=== PATIENT | male | born 1930 | race Caucasian/White ===

== ENCOUNTER 2019-06-29 17:44 | Inpatient (IN) | payer MEDICARE, MEDICAID ==
[~2019-06-29] VITALS: Ht 170.2 cm; Wt 110.7 kg
--- NOTE | 2019-06-29 18:33 | PHYS DOC ---
Past History Past Medical History: Anxiety, Bipolar, CAD, CHF, Constipation, Depression, Diabetes, GERD, High Cholesterol, Hypertension, Hypothyroid, Other Additional Past Medical Histor: MRSA; gout; BPH; Past Surgical History: Other Additional Past Surgical Histo: eye surgery Smoking: Non-smoker Alcohol Use: None Drug Use: None Adult General Chief Complaint Chief Complaint: MEDICAL CLEARANCE HPI HPI Patient is a 88-year-old male presents for medical clearance prior to admission for potentially to [facility] for behavioral disturbances at the facility where he currently resides. No relief with previous interventions. Patient denies any complaints.[] Review of Systems Review of Systems Constitutional: Denies fever or chills [] Eyes: Denies change in visual acuity, redness, or eye pain [] HENT: Denies nasal congestion or sore throat [] Respiratory: Denies cough or shortness of breath [] Cardiovascular: No chest pain or palpitations[] GI: Denies abdominal pain, nausea, vomiting, bloody stools or diarrhea [] : Denies dysuria or hematuria [] Musculoskeletal: Denies back pain or joint pain [] Integument: Denies rash or skin lesions [] Neurologic: Denies headache, focal weakness or sensory changes [] Endocrine: Denies polyuria or polydipsia [] All other systems were reviewed and found to be within normal limits, except as documented in this note. Allergies Allergies Allergies Coded Allergies Type Severity Reaction Last Updated Verified No Known Drug Allergies 06/29/19 No Physical Exam Physical Exam Constitutional: Well developed, well nourished, no acute distress, non-toxic appearance. [] HENT: Normocephalic, atraumatic, bilateral external ears normal, oropharynx moist, no oral exudates, nose normal. [] Eyes: PERRLA, EOMI, conjunctiva normal, no discharge. [] Neck: Normal range of motion, no tenderness, supple, no stridor. [] Cardiovascular:Heart rate regular rhythm, no murmur [] Lungs & Thorax: Bilateral breath sounds clear to auscultation [] Abdomen: Bowel sounds normal, soft, no tenderness, no masses, no pulsatile masses. [] Skin: Warm, dry, no erythema, no rash. [] Back: No tenderness, no CVA tenderness. [] Extremities: No tenderness, no cyanosis, no clubbing, ROM intact, pretibial edema is present bilateral lower extremities, 1-2+, symmetric. [] Neurologic: Alert and oriented X 2, normal motor function, normal sensory function, no focal deficits noted. [] Psychologic: Affect normal, mood normal. [] Current Patient Data Vital Signs Vital Signs Date Time Temp Pulse Resp B/P (MAP) Pulse Ox O2 Delivery O2 Flow Rate FiO2 06/29/19 17:59 97.1 88 24 97 Room Air EKG EKG EKG shows an irregular rhythm consistent with atrial fibrillation, left axis, 79 bpm, QTC of 490 ms, no ST elevation. No old EKG available for comparison. Interpreted by me at 1906[] Radiology/Procedures Radiology/Procedures [] Course & Med Decision Making Course & Med Decision Making Pertinent Labs and Imaging studies reviewed. (See chart for details) ED course: Patient arrived, was placed in bed, and tolerated exam well. He had several episodes of calling out however these were controlled with verbal interventions. Laboratory testing returned. He was given initial dose of oral antibiotics. He was cleared for admission. He was admitted in improved condition. Medical decision makin-year-old male with behavioral issues in somebody with a history of bipolar disorder. His glucose is elevated but he is not in diabetic ketoacidosis. This may be also due to not having any of his medication. He looks like he is in atrial fibrillation but has a controlled ventricular response. He has no chest pain or palpitations. No hypoxia. He has a urinary tract infection which may also be contributing to all of this. This is being addressed with oral antibiotics. He is medically clear for further evaluation and treatment by [facility].[] Dragon Disclaimer Dragon Disclaimer This electronic medical record was generated, in whole or in part, using a voice recognition dictation system. Departure Departure: Impression: Primary Impression: Medical clearance for psychiatric admission Additional Impressions: Poorly controlled diabetes mellitus Atrial fibrillation Urinary tract infection Disposition: ADMITTED INPATIENT Admitting Physician: Other Condition: IMPROVED Referrals: ARLETH CAMACHO MD (PCP) Problem Qualifiers Additional Impressions: Atrial fibrillation Atrial fibrillation type: unspecified Qualified Codes: I48.91 - Unspecified atrial fibrillation Urinary tract infection Urinary tract infection type: site unspecified Hematuria presence: without hematuria Qualified Codes: N39.0 - Urinary tract infection, site not specified DEMETRIA JORGENSEN DO Jun 29, 2019 18:32
[2019-06-29 18:47] LABS: BASO # 0.1 x10^3/uL (0.0-0.2); BASO % 1 % (0-3); EOS # 0.2 x10^3/uL (0.0-0.7); EOS % 2 % (0-3); HEMATOCRIT 37.5 % (39.0-53.0); HEMOGLOBIN 12.2 g/dL (13.0-17.5); LYMPH # 1.9 x10^3/uL (1.0-4.8); LYMPH % 19 % (24-48); MEAN CORPUSCULAR HEMOGLOBIN 31 pg (25-35); MEAN CORPUSCULAR HGB CONC 33 g/dL (31-37); MEAN CORPUSCULAR VOLUME 95 fL (79-100); MONO # 0.7 x10^3/uL (0.0-1.1); MONO % 7 % (0-9); NEUT # 7.3 x10^3uL (1.8-7.7); NEUT % 72 % (31-73); PLATELET COUNT 235 x10^3/uL (140-400); RED BLOOD COUNT 3.95 x10^6/uL (4.30-5.70); RED CELL DISTRIBUTION WIDTH 14.7 % (11.5-14.5); WHITE BLOOD COUNT 10.2 x10^3/uL (4.0-11.0)
--- NOTE | 2019-06-29 18:55 | NUR ---
Patient has [facility]; Authorization #[id number] through 07/01/19, to be reviewed on 07/02/19.
[2019-06-29 19:00] LABS: ALBUMIN/GLOBULIN RATIO 0.7 (1.0-1.7); CALCIUM 8.3 mg/dL (8.5-10.1); CREATININE 1.2 mg/dL (0.7-1.3); GFR 57.4; MAGNESIUM 1.1 mg/dL (1.8-2.4); TOTAL BILIRUBIN 0.3 mg/dL (0.2-1.0); TOTAL PROTEIN 7.3 g/dL (6.4-8.2)
[2019-06-29 19:16] LABS: BILIRUBIN,URINE NEG (NEG); CLARITY,URINE CLOUDY; COLOR,URINE YELLOW; GLUCOSE,URINE NEG (NEG); NITRITE,URINE NEG (NEG); UROBILINOGEN,URINE 0.2 mg/dL (0.2 mg/dL)
[2019-06-29 19:17] LABS: BACTERIA,URINE FEW /HPF (0-FEW); SQUAMOUS EPITHELIAL CELL,UR OCC /LPF; WBC,URINE TNTC /HPF (0-4)
[2019-06-29] MEDS ORDERED: CEPHALEXIN 250 MG CAPSULE PO ONE (19:30)
[2019-06-29 20:41] VITALS: BP 137/65
[2019-06-29] MEDS ORDERED: METO5TAB4 PO (22:00)
[2019-06-29] MEDS ORDERED: METO10TA5 PO (22:00)
[2019-06-29] MEDS ORDERED: GLUC1KIT IM (22:00)
[2019-06-29] MEDS ORDERED: DEXT38GE2 PO (22:00)
[2019-06-29] MEDS ORDERED: LOPE-101 PO (22:00)
[2019-06-29] MEDS ORDERED: METHYL SALICYLATE/MENTHOL TOPICAL OINTMENT 57GM TUBE. TP PRN (22:00)
[2019-06-29] MEDS ORDERED: ASPI-252 PO (22:00)
[2019-06-29] MEDS ORDERED: PROP15DR40 EACHEYE (22:00)
[2019-06-29] MEDS ORDERED: LISI10TA2 PO (22:00)
[2019-06-29] MEDS ORDERED: ACET500T33 PO (22:00)
[2019-06-29] MEDS ORDERED: ACETAMINOPHEN 325 MG TABLET PO PRN (22:00)
[2019-06-29] MEDS ORDERED: BUSP15TA PO (22:00)
[2019-06-29] MEDS ORDERED: MAGNESIUM HYDROXIDE 2,400 MG/30 ML ORAL.SUSP. PO PRN ×2 (22:00→23:00)
[2019-06-29] MEDS ORDERED: METO25TA4 PO (22:00)
[2019-06-29] MEDS ORDERED: ALLO100T PO (22:00)
[2019-06-29] MEDS ORDERED: MULT-245 PO (22:00)
[2019-06-29] MEDS ORDERED: MAG-115 PO (22:00)
[2019-06-29] MEDS ORDERED: FLUT1DIS5 IH (22:00)
[2019-06-29] MEDS ORDERED: IPRA3AMP29 NEB (22:00)
[2019-06-29] MEDS ORDERED: FURO-68 PO (22:00)
[2019-06-29] MEDS ORDERED: INSU100I13 SQ ×2 (22:00)
[2019-06-29] MEDS ORDERED: QUET50TA5 PO (22:00)
[2019-06-29] MEDS ORDERED: MAG HYDROX/AL HYDROX/SIMETH 30 ML ORAL.SUSP PO PRN ×2 (22:00→22:45)
[2019-06-29] MEDS ORDERED: TRIA15CR50 TP (22:00)
[2019-06-29] MEDS ORDERED: NYST15PO9 TP (22:00)
[2019-06-29] MEDS ORDERED: TERA5CAP3 PO (22:00)
[2019-06-29] MEDS ORDERED: CHOL200078 PO (22:00)
[2019-06-29] MEDS ORDERED: MENT113G6 TP (22:00)
[2019-06-29] MEDS ORDERED: MEMA10TA PO (22:00)
[2019-06-29] MEDS ORDERED: QUET25TA5 PO (22:00)
[2019-06-29] MEDS ORDERED: LEVO150T PO (22:00)
[2019-06-29] MEDS ORDERED: POTA20TA4 PO (22:00)
[2019-06-29] MEDS ORDERED: MAGN2400 PO (22:00)
[2019-06-29] MEDS ORDERED: INSU100V SQ (22:00)
[2019-06-29] MEDS ORDERED: FINA5TAB4 PO (22:00)
[2019-06-29] MEDS ORDERED: PROP15DR40 OU (22:00)
[2019-06-29] MEDS ORDERED: SIMV20TA PO (22:00)
[2019-06-29] MEDS ORDERED: SERT100T PO (22:00)
--- NOTE | 2019-06-29 22:21 | NUR ---
Admission Note with Justification for Admission to [facility] Patient admitted to [facility] for protective oversight for emergency stabilization of acute psychiatric crisis. Pt admitted from: Hospital ER Mode of arrival: EMS Accompanied By: Secure Transport Precipitating behaviors that initiated intake and admission: Reported patient is combative, yelling at staff, threatening staff and threatening to "blow the building up." Patient is demanding, and in a "general bad mood." according to ER staff. Description of failure of out patient attempts at stabilization in previous setting list behavior and medication trials: Patient sees a current psychiatrist, patient needs medication stabilization Behaviors and assessment findings upon admission:Patient is slightly irritable depending on how you speak to him and what is being done. Patient is very hard of hearing so find that if you take your time and explain things to where he can hear, patient seems to be more understanding and in a better mood @ this time. Patient speaks loudly, and eccentrically. Cooperative and compliant. Patient does have PMHx of COPD/CHF. Keeping close eye on patient, medically. Patient appears to have a lot of fluid in abdomen, wheezes, crackles at bilateral bases. Patient stating 85-93 on 3L. Patient wants to go by the name "Grisel." Plan: Admit for protective oversight for adjustment and stabilization of medications, behaviors and mood. Intense treatment regimen including groups, medication adjustments, therapy, consistent regimen for ADL's, self care, and sleep hygiene. Daily monitoring by Inpatient staff, Psychiatry, and Medical Physician.
[2019-06-29] MEDS ORDERED: LOPERAMIDE 2 MG CAPSULE PO PRN (22:45)
[2019-06-29] MEDS ORDERED: DEXTROSE ORAL GEL 15 GM TUBE. PO PRN (22:45)
[2019-06-29] MEDS ORDERED: MENTHOL TP PRN (22:45)
[2019-06-29] MEDS ORDERED: ACETAMINOPHEN 500 MG TABLET PO PRN (22:45)
[2019-06-29] MEDS ORDERED: NYSTATIN TOPICAL POWDER 15GM BOTTLE. TP PRN (22:45)
[2019-06-29] MEDS ORDERED: GLUCAGON,HUMAN RECOMBINANT 1 MG KIT. IM PRN (23:00)
[2019-06-29] MEDS ORDERED: POLYVINYL ALCOHOL/POVIDONE/PF OPHTH SOLUTION DROPERETTE. OU PRN (23:00)
[2019-06-29] MEDS ORDERED: TRIAMCINOLONE ACETONIDE 0.1% TOPICAL CREAM 15GM TUBE. TP PRN (23:15)
[2019-06-29] MEDS ORDERED: DEXTROSE 50% 25 GM / 50ML DISP.SYRIN. IV PRN (23:30)
[2019-06-30] MEDS ORDERED: IPRATRPIUM/ALBUTEROL 0.5/2.5MG 3 ML NEBU. ONE (05:00)
[2019-06-30 05:15] VITALS: BP 136/79
--- NOTE | 2019-06-30 05:34 | NUR ---
Patient has been provided with Practical Counseling for tobacco cessation. It included a face to face interaction and the following was discussed: Recognizing danger situations, Developing coping skills,Basic cessation information. Will follow for discharge needs and discharge planning.
[2019-06-30] MEDS: IPRATRPIUM/ALBUTEROL 0.5/2.5MG 3 ML NEBU. NEB SCH ×4 (05:47→20:05)
[2019-06-30] MEDS ORDERED: NON FORMULARY ITEM (Insulin Lispro (Humalog) 0 UNIT) SQ SCH (07:30)
[2019-06-30] MEDS ORDERED: LEVOTHYROXINE 150 MCG TABLET PO SCH (07:30)
[2019-06-30] MEDS: INSULIN LISPRO 300 UNITS/3 ML VIAL. SQ SCH ×5 (07:30→17:50)
[2019-06-30] MEDS ORDERED: QUEtiapine 25 MG TABLET. PO SCH (09:00)
[2019-06-30] MEDS ORDERED: QUEtiapine 50 MG TABLET. PO SCH (09:00)
[2019-06-30] MEDS ORDERED: NON FORMULARY ITEM (Fluticasone/Salmeterol (Advair 500-50 Diskus) 1 PUFF) IH SCH (09:00)
[2019-06-30] MEDS ORDERED: INSULIN GLARGINE SYRINGE. SQ SCH (09:00)
[2019-06-30] MEDS: QUEtiapine 25 MG TABLET. PO SCH ×2 (10:00→13:44)
[2019-06-30] MEDS: busPIRone 15 MG TABLET. PO SCH ×4 (10:05→21:04)
[2019-06-30] MEDS: LISINOPRIL 10 MG TABLET PO SCH (10:05)
[2019-06-30] MEDS: FINASTERIDE 5 MG TABLET PO SCH (10:05)
[2019-06-30] MEDS: metOLazone 5 MG TABLET PO SCH (10:05)
[2019-06-30] MEDS: ASPIRIN ENTERIC COATED 325 MG TABLET.DR. PO SCH (10:06)
[2019-06-30] MEDS: CHOLECALCIFEROL (VITAMIN D3) 1,000 UNIT TABLET PO SCH (10:06)
[2019-06-30] MEDS: METOPROLOL TART IMMED RELEASE 25 MG TABLET PO SCH ×2 (10:06→21:05)
[2019-06-30] MEDS: SERTRALINE 100 MG TABLET. PO SCH (10:07)
[2019-06-30] MEDS: POTASSIUM CHLORIDE 20 MEQ TABLET.ER. PO SCH (10:07)
[2019-06-30] MEDS: MEMANTINE 10 MG TABLET. PO SCH ×2 (10:07→21:04)
[2019-06-30] MEDS: FUROSEMIDE 40 MG TABLET PO SCH (10:07)
[2019-06-30] MEDS: ALLOPURINOL 100 MG TABLET. PO SCH ×3 (10:07→21:04)
[2019-06-30] MEDS: MULTIVITAMIN with MINERAL TABLET. PO SCH (10:07)
[2019-06-30] MEDS: NICOTINE 14MG PATCH. TD SCH (10:08)
--- NOTE | 2019-06-30 10:11 | RAD ---
EXAM: CHEST ONE VIEW. HISTORY: Chronic obstructive pulmonary disease, congestive heart failure. COMPARISON: 02/20/2011. FINDINGS: A frontal view of the chest is obtained. Opacification in the left base is consistent with a pleural effusion along with atelectasis or infiltrate. A double density projecting over the left hilum is indeterminate but a mass is not excluded. There is no pneumothorax. The heart is at least mildly enlarged. There are atherosclerotic calcifications of the aorta. Left rotator cuff arthropathy and severe glenohumeral osteoarthritis are noted. There are chronic left rib fractures. IMPRESSION: 1. Findings concerning for a left hilar mass. CT of the chest with contrast is suggested if the diagnosis or stability is not already known. 2. Small moderate left pleural effusion. Left basilar atelectasis or pneumonia. 3. Cardiomegaly. Electronically signed by: Donell Frankel MD (06/30/2019 10:07 AM) [facility]
[2019-06-30] MEDS: BUDESONIDE 0.5 MG/2 ML NEBU NEB SCH ×2 (10:34→20:04)
--- NOTE | 2019-06-30 11:05 | RAD ---
EXAM: Abdomen sonogram. HISTORY: Distention. TECHNIQUE: Sonographic imaging of the abdomen was performed. COMPARISON: None. FINDINGS: The exam is limited due to body habitus. There is mild hepatomegaly. No focal hepatic lesion is seen. The gallbladder is unremarkable. The common bile duct is normal in caliber. The kidneys are normal in size. The spleen is normal in size. The pancreas, aorta and inferior vena cava are predominantly obscured. IMPRESSION: 1. Limited exam due to body habitus. The midline structures are predominantly obscured. 2. Mild hepatomegaly. Electronically signed by: Sandra Rai MD (06/30/2019 11:02 AM) [id number]
[2019-06-30] MEDS ORDERED: CONTRAST GIVEN MC PRN (13:00)
[2019-06-30] MEDS ORDERED: IOHEXOL 300 MG/ML 75 ML VIAL. IV ONE (13:15)
[2019-06-30] MEDS: MAGNESIUM OXIDE 400 MG TABLET PO SCH ×2 (13:44→21:04)
[2019-06-30 15:51] VITALS: BP 97/50
--- NOTE | 2019-06-30 15:54 | NUR ---
Nursing note: Pt in room this morning for meds and assessment. Pt was compliant with his meds crushed in applesauce and was cooperative with his assessment. Pt denies having any pain or any other complaints. He has been showing signs of agitation a few times today, yelling out, but has been easily redirected. He has been in the day room for most of the day. 20G IV placed in L AC for Dr. Sorenson's chest CT with contrast order. IV is currently saline locked. Will continue to monitor.
--- NOTE | 2019-06-30 16:33 | RAD ---
CT CHEST ABD PELVIS W/CONTRAST Indication: Left hilar mass, abdominal distention and shortness of breath Technique: Postcontrast CT imaging was performed of the chest, abdomen, pelvis, multiplanar reconstruction images submitted. One or more of the following individualized dose reduction techniques were utilized for this examination: 1. Automated exposure control 2. Adjustment of the mA and/or kV according to patient size 3. Use of iterative reconstruction technique. Comparison: Chest radiograph the same day Chest Findings: There is fairly prominent motion degradation. No significantly enlarged nodes are identified of the chest, right pretracheal node about 0.8 cm short axis dimension, largest nodes present. There is probable degree of esophageal wall thickening. There is minimal left lower lobe infiltrate/atelectasis. There is no pneumothorax or pleural or pericardial fluid. There is coronary calcification. Thoracic aortic caliber is within normal limits, scattered plaque. No focal left hilar mass is identified. There is mitral annular calcification. There is epicardial fat. Accurate evaluation for smaller lung nodules is limited due to degree of motion. Thoracic vertebral body stature is grossly maintained. IMPRESSION: 1. There is significant motion degradation. No left hilar mass is identified. There is minimal atelectasis/infiltrate left lower lobe closer to the lung base. 2. There is coronary calcification. 3. There is probable degree of esophageal wall thickening as could be seen with esophagitis in the appropriate clinical setting although also poorly evaluated due to motion. Abdomen pelvis FINDINGS: There is motion degradation. Both kidneys enhance without hydronephrosis. Gallbladder is present without obvious intraluminal abnormality by CT, not significantly dilated. There is no significant focal abnormality of the liver, spleen, pancreas allowing for motion degradation. Bowel is not considered significantly dilated, mild gas distention of the mid sigmoid colon. Accurate evaluation for more subtle inflammatory change is limited due to motion. There is possible appendicolith near origin of the appendix, no significant appendiceal dilatation or adjacent inflammatory change. There is circumferential prominence of the urinary bladder delgado. There is atherosclerotic calcification of the abdominal aorta and branches, likely degree of stenosis near celiac artery origin and of the proximal superior mesenteric artery as well as the renal arteries. Lumbar vertebral body stature is maintained. There is multilevel lumbar spondylosis and facet degenerative change. There is a fat-containing umbilical hernia without internal bowel, transverse dimension of hernia neck about 1.9 cm and transverse dimension of the hernia sac about 3.9 cm. IMPRESSION: 1. There is no evidence of bowel obstruction. There is no CT evidence of acute appendicitis although there may be appendicolith near the origin. 2. There is appearance of circumferential prominence of the urinary bladder delgado, could be due to incomplete distention although cystitis a possibility in the appropriate clinical setting. 3. There is small fat-containing hernia near the umbilicus, no internal bowel. 4. There is calcified plaque of the abdominal aorta and branches likely with degree of narrowing near the origins of the celiac and superior mesenteric arteries as well as renal arteries. Electronically signed by: Cosme Phipps MD (06/30/2019 4:30 PM) [id number]
[2019-06-30 20:26] LABS: THYROID STIM HORMONE (TSH) 7.406 uIU/mL (0.358-3.740)
--- NOTE | 2019-06-30 21:03 | PDOC ---
Exam Note: Devonte Note: Please also refer to the separate dictated note~for this date of service dictated separately. Discussed the patient with Nursing staff reviewed the chart.~Reviewed interim history and current functioning. Reviewed vital signs,~Labs/ Radiology~and current medications noted below. Continue current treatment with the changes noted in the dictated addendum note Assessment: Vital Signs/I&O: Vital Signs Date Time Temp Pulse Resp B/P (MAP) Pulse Ox O2 Delivery O2 Flow Rate FiO2 06/30/19 20:13 95 Nasal Cannula 2.5 06/30/19 15:51 98.2 86 22 97/50 (66) I & O 06/29/19 06/29/19 06/30/19 15:00 23:00 07:00 Intake Total 0 ml Balance 0 ml Labs: Laboratory Tests Test 06/30/19 07:49 06/30/19 12:11 06/30/19 16:53 06/30/19 19:11 Glucose (Fingerstick) 266 mg/dL (70-99) H 294 mg/dL (70-99) H 226 mg/dL (70-99) H 188 mg/dL (70-99) H Current Medications: Meds: Current Medications Medications (Trade) Dose Ordered Sig/Zeina Route PRN Reason Start Time Stop Time Status Last Admin Dose Admin Nicotine (Nicoderm Cq 14mg) 1 patch DAILY TD 06/30/19 09:00 06/30/19 10:08 Buspirone HCl (Buspar) 15 mg QID PO 06/30/19 09:00 06/30/19 17:44 Memantine (Namenda) 10 mg BID PO 06/30/19 09:00 06/30/19 10:07 Sertraline HCl (Zoloft) 100 mg DAILY PO 06/30/19 09:00 06/30/19 10:07 Allopurinol (Zyloprim) 100 mg TID PO 06/30/19 09:00 06/30/19 13:44 Aspirin (Aspirin Enteric Coated) 325 mg DAILY PO 06/30/19 09:00 06/30/19 10:06 Finasteride (Proscar) 5 mg DAILY PO 06/30/19 09:00 06/30/19 10:05 Furosemide (Lasix) 40 mg DAILY PO 06/30/19 09:00 06/30/19 10:07 Albuterol/ Ipratropium (Duoneb) 3 ml QID NEB 06/30/19 09:00 06/30/19 20:05 Levothyroxine Sodium (Synthroid) 150 mcg DAILYAC PO 06/30/19 07:30 06/30/19 12:56 DC 06/30/19 10:06 Lisinopril (Prinivil) 10 mg DAILY PO 06/30/19 09:00 06/30/19 10:05 Metolazone (Zaroxolyn) 5 mg QMTUTHSA@0900 PO 06/30/19 09:00 06/30/19 10:05 Metoprolol Tartrate (Lopressor) 12.5 mg BID PO 06/30/19 09:00 06/30/19 10:06 Potassium Chloride (Klor-Con) 20 meq DAILY PO 06/30/19 09:00 06/30/19 10:07 Vitamin D (Vitamin D3) 1,000 unit DAILY PO 06/30/19 09:00 06/30/19 10:06 Insulin Glargine (Lantus Syringe) 14 unit DAILY SQ 06/30/19 09:00 06/30/19 12:47 DC 06/30/19 10:17 Insulin Human Lispro (HumaLOG) 14 units TIDAC SQ 06/30/19 07:30 06/30/19 17:50 Multivitamins/ Calcium (Thera-M Plus) 1 tab DAILY PO 06/30/19 09:00 06/30/19 10:07 Budesonide (Pulmicort) 0.5 mg RTBID NEB 06/30/19 08:00 06/30/19 20:04 Insulin Human Lispro (HumaLOG) 2-8 UNITS TIDWMEALS SQ 06/30/19 08:00 06/30/19 12:47 DC 06/30/19 12:00 Quetiapine Fumarate (SEROquel) 25 mg BID92 PO 06/30/19 10:00 06/30/19 13:44 Magnesium Oxide (Magnesium Oxide) 400 mg TID PO 06/30/19 14:00 06/30/19 13:44 Iohexol (Omnipaque 300 Mg/ml) 75 ml 1X ONCE IV 06/30/19 13:15 06/30/19 13:16 DC 06/30/19 14:09 I have reviewed the current psychotropics carefully including drug interactions. Risk benefit ratio favors no change other than as noted in my dictated progress note. Diagnosis: Problems: (1) Atrial fibrillation (2) Urinary tract infection (3) Poorly controlled diabetes mellitus (4) Medical clearance for psychiatric admission IBPIN JEWELL MD Jun 30, 2019 21:03
[2019-06-30] MEDS: TERAZOSIN 5 MG CAPSULE. PO SCH (21:04)
[2019-06-30] MEDS: SIMVASTATIN 20 MG TABLET PO SCH (21:05)
[2019-06-30] MEDS: QUEtiapine 50 MG TABLET. PO SCH (21:05)
[2019-06-30] MEDS: POLYVINYL ALCOHOL/POVIDONE/PF OPHTH SOLUTION DROPERETTE. OU SCH (21:05)
[2019-06-30] MEDS: INSULIN GLARGINE SYRINGE. SQ SCH (21:06)
--- NOTE | 2019-06-30 21:08 | CONS ---
DATE OF CONSULTATION: 06/30/2019 REASON FOR CONSULTATION: Medical management. HISTORY OF PRESENT ILLNESS: The patient is an 88-year-old male patient, a resident at [facility], who was admitted to [facility] on account of frequently calling out, threatening to blow up facility, all this in a background of bipolar disorder, unspecified and cognitive disorder. Medically, the patient has a multitude of medical problems including congestive heart failure, type 2 diabetes with diabetic neuropathy, hypertension, obstructive uropathy, morbid obesity, MRSA infection, hypothyroidism, hyperlipidemia, cataracts, angina pectoris, chronic bronchitis, gastroesophageal reflux disease, chronic constipation, gout, benign prostatic hypertrophy, chronic pain syndrome and bilateral lower limb edema. PAST PSYCHIATRIC HISTORY: Significant for bipolar disorder, anxiety disorder, impulse control disorder. PAST SURGICAL HISTORY: Unremarkable. ALLERGIES: He has no known drug allergies. MEDICATIONS: He is currently on following medications: He is on ipratropium bromide/albuterol sulfate 0.5/3 mL by nebulizer 4 times a day, simvastatin 20 mg at bedtime, terazosin 5 mg at bedtime, metoprolol tartrate 12.5 mg twice a day, lisinopril 10 mg once a day, aspirin 325 mg once a day, Tylenol Extra Strength 500 mg every 6 hours, sertraline 100 mg once a day, Seroquel 25 mg twice a day, quetiapine fumarate 50 mg at bedtime, buspirone 15 mg 4 times a day, Namenda 10 mg twice a day, potassium chloride 20 mEq daily, glucose gel 38 g p.o. daily p.r.n. for hypoglycemia, furosemide 40 mg once a day, metolazone 10 mg every Saturday, metolazone 5 mg p.o. daily. He is on Advair Diskus 500/50 one puff twice a day, propylene glycol for Systane eye drops 2 drops to both eyes at bedtime. He is also on Mylanta 15 mL after meals, loperamide 2 mg p.r.n. as needed for diarrhea, milk of magnesia 30 mL p.o. daily p.r.n. for constipation, Lantus insulin 14 units subcutaneously daily and 60 units at bedtime. He is on Humalog insulin 14 units before meals and insulin lispro 0-8 units 3 times a day as per insulin sliding scale. He is on glucagon 1 mg intramuscular as needed for hypoglycemia, levothyroxine sodium 150 mcg once a day, nystatin powder applied topically every 8 hours, triamcinolone acetonide applied topically as needed, BenGay applied topically every 6 hours, ergocalciferol 2000 international units once a day, multivitamin 1 tablet once a day, finasteride 5 mg once a day, allopurinol 100 mg 3 times a day. FAMILY HISTORY: Noncontributory. SOCIAL HISTORY: He is a resident at [facility]. He does not smoke, drink alcohol or use any recreational drugs. REVIEW OF SYSTEMS: Unobtainable. PHYSICAL EXAMINATION: GENERAL: When I examined him this afternoon, the patient was sitting in his wheelchair, eating his lunch comfortably, in no apparent distress. He was slightly pale. No jaundice, cyanosis or thyromegaly. No jugular venous distention. No limb edema. VITAL SIGNS: His heart rate is 113, blood pressure was 136/79, temperature was 97.4, respiratory rate was 22 and oxygen saturation was 93% on room air. In fact, he was on 2.5 liters of oxygen by nasal cannula. HEAD, EYES, EARS, NOSE AND THROAT: Showed normocephalic, atraumatic. NECK: Supple. HEART: Showed normal first and second heart sounds. No gallop or murmur. CHEST: Clear to auscultation. No crepitation or rhonchi. ABDOMEN: Distended, soft, nontender. No guarding or rigidity. No organomegaly. All hernial orifice intact. Bowel sounds normal. NEUROLOGIC: He was confused, but without any obvious lateralizing sign. All his cranial nerves are intact. EXTREMITIES: He moves extremities without difficulty, although he has a Nicholas lift. LABORATORY DATA: Showed a white cell count of 10,200, hemoglobin 12, hematocrit 37, MCV 95, and platelet count 235,000. His chemistry showed serum sodium of 132, potassium 4, chloride 95, bicarbonate 25, anion gap of 12, BUN 31, creatinine 1.2, estimated GFR was 57 mL per minute. His glucose was high at 340 mg/dL, calcium was 8.3, magnesium was 1.1. Total bilirubin, CLT, alkaline phosphatase were normal. Her total protein was 7.3, albumin was 3 g/dL. Urinalysis showed the urine was yellow, cloudy with a pH of 5.5, specific gravity 1.015. The urine was negative for protein, glucose, ketones. There is small amount of blood, negative for nitrite, however, there was large amount of leukocyte esterase, 3-5 rbc's, too numerous to count wbc's and few bacteria. ASSESSMENT AND PLAN: In summary, this is an 88-year-old male patient, a resident at [facility], who was admitted on account of frequently calling out threatening to blow up the facility, all this in a background of bipolar disorder, unspecified and cognitive disorder. Medically, he has multiple medical problems including congestive heart failure, type 2 diabetes with diabetic neuropathy, hypertension, obstructive uropathy, morbid obesity, history of cellulitis with MRSA infection, hypothyroidism, hyperlipidemia, angina pectoris, chronic bronchitis, gastroesophageal reflux disease, constipation, gout, benign prostatic hypertrophy. His lab work showed that he has normochromic normocytic anemia. His chemistry showed he has dilutional hyponatremia. He also has severe hypomagnesemia with the serum magnesium is only 1.1. His blood sugar is suboptimally controlled with a plan to increase his scheduled insulin to 18 units before meals to discontinue his insulin sliding scale. I started him also on magnesium oxide 400 mg 3 times a day. Meanwhile, we will continue all his other medications. I will follow his lab works that are still pending at the time of this dictation. His chest x-ray showed that he has finding concerning for a left hilar mass and the radiologist recommended a CT scan as he also seemed to have marked huge abdomen with possible ascites. I ordered CT scan of the chest, abdomen and pelvis with contrast. ARYAN GÓMEZ MD DR: KAYLA/vandana JOB#: [id number] / [id number]
--- NOTE | 2019-06-30 23:02 | NUR ---
Nsg Note: Patient was in room at time of medication administration and assessments. Patient was calm, compliant, cooperative and pleasantly confused. Patient kept smiling and saying, "Merry Elena!" Had some difficulty with medications whole. Was however able to swallow and drink with water ultimately. Patient went back to sleep afterwards. No other notable behaviors at this time.
[2019-07-01 00:06] LABS: HEMOGLOBIN A1C 10.6 % (4.8-5.6)
[2019-07-01 05:15] VITALS: BP 155/70
[2019-07-01] MEDS: LEVOTHYROXINE 150 MCG TABLET PO SCH (05:18)
--- NOTE | 2019-07-01 07:30 | NUR ---
wound care patient seen per wound care consult. see wound assessment. patient has a stage 3 pressure ulcer to the left hip, the area was cleaned and redressed with recommendations of a hydrocolloid with a foam dressing. patient has redness under the abdomen and in the intergluteal cleft, recommendations of nystatin powder under the abdomen and Calazime to the intergluteal cleft. patient needs to be turning every 2 hours while in bed. patients heels area red but blanchable, heelmedix boots ordered at this time. spoke with RN about the POC, wound care will continue to f/u for changes.
[2019-07-01] MEDS: NYSTATIN TOPICAL POWDER 15GM BOTTLE. TP SCH ×2 (08:09→20:59)
[2019-07-01] MEDS: NICOTINE 14MG PATCH. TD SCH (08:09)
[2019-07-01] MEDS: FINASTERIDE 5 MG TABLET PO SCH (08:10)
[2019-07-01] MEDS: SERTRALINE 100 MG TABLET. PO SCH (08:10)
[2019-07-01] MEDS: busPIRone 15 MG TABLET. PO SCH ×4 (08:10→20:57)
[2019-07-01] MEDS: ALLOPURINOL 100 MG TABLET. PO SCH ×3 (08:10→20:54)
[2019-07-01] MEDS: POTASSIUM CHLORIDE 20 MEQ TABLET.ER. PO SCH (08:11)
[2019-07-01] MEDS: METOPROLOL TART IMMED RELEASE 25 MG TABLET PO SCH ×2 (08:11→21:03)
[2019-07-01] MEDS: MAGNESIUM OXIDE 400 MG TABLET PO SCH ×3 (08:12→20:57)
[2019-07-01] MEDS: CHOLECALCIFEROL (VITAMIN D3) 1,000 UNIT TABLET PO SCH (08:12)
[2019-07-01] MEDS: QUEtiapine 25 MG TABLET. PO SCH ×2 (08:12→13:34)
[2019-07-01] MEDS: FUROSEMIDE 40 MG TABLET PO SCH (08:12)
[2019-07-01] MEDS: ASPIRIN ENTERIC COATED 325 MG TABLET.DR. PO SCH (08:13)
[2019-07-01] MEDS: MULTIVITAMIN with MINERAL TABLET. PO SCH (08:13)
[2019-07-01] MEDS: MEMANTINE 10 MG TABLET. PO SCH ×2 (08:13→20:54)
[2019-07-01] MEDS: LISINOPRIL 10 MG TABLET PO SCH (08:13)
[2019-07-01] MEDS: INSULIN LISPRO 300 UNITS/3 ML VIAL. SQ SCH ×3 (08:16→18:08)
[2019-07-01] MEDS: IPRATRPIUM/ALBUTEROL 0.5/2.5MG 3 ML NEBU. NEB SCH ×4 (09:00→20:31)
[2019-07-01] MEDS: INSULIN GLARGINE SYRINGE. SQ SCH ×2 (09:29→20:59)
[2019-07-01] MEDS: BUDESONIDE 0.5 MG/2 ML NEBU NEB SCH ×2 (10:28→20:31)
[2019-07-01 12:07] LABS: THYROXINE 5.2 ug/dL (4.5-12.0)
--- NOTE | 2019-07-01 15:51 | NUR ---
Nursing note: Pt in dining room this morning for meds and assessment. Pt was compliant with taking his meds crushed in applesauce and was cooperative with his assessment. He had no complaints at time of assessment and was in good spirits. Pt began demanding after breakfast to go lay down in bed, but remained up in his wheelchair throughout the morning and early afternoon. He is currently sleeping in his bed. Will continue to monitor.
[2019-07-01 16:23] VITALS: BP 93/48
--- NOTE | 2019-07-01 17:42 | HP ---
ADMIT DATE: 06/30/2019 This late entry, date of service 06/30/2019, covers elements not covered in my initial note. I met with the patient in the evening of 06/30/2019. Discussed with nursing staff, reviewed the chart. IDENTIFYING DATA: The patient is an 88-year-old male, referred to us from [facility], referred by his primary care physician on account of worsening behaviors, mood swings, frequently calling out, threatening to blow up the facility. He does have a diagnosis of bipolar disorder and unspecified cognitive disorder. He has appeared more confused, had failed outpatient psychiatric interventions with myself resulting in this referral. CHIEF COMPLAINT: "I am okay." HISTORY OF PRESENT ILLNESS: The patient has a history of bipolar disorder with periods of mood swings, elation, racing thoughts, alternating with being depressed, angry, irritable with sleep and appetite changes, paranoia. He has also had short-term memory deficits. He has been agitated, aggressive, threatening at the facility as above and had failed outpatient psychiatric interventions. PAST PSYCHIATRIC HISTORY: As above. MEDICAL HISTORY: Positive for CHF, type 2 diabetes mellitus with neuropathy, hypertension, obstructive uropathy, morbid obesity, cellulitis, MRSA infection, hypothyroidism, hyperlipidemia, cataracts, angina, chronic bronchitis, GERD, chronic constipation, gout, BPH pain, edema. The patient does have a UTI, started on antibiotics in the ER. CODE STATUS: Full code. ALLERGIES: Negative. DIET: Regular. ACCU-CHEKS a.c. and at bedtime. Takes medications whole. Ambulates in a wheelchair. CURRENT PSYCHOTROPICS: BuSpar 15 mg 4 times a day, Namenda 10 mg b.i.d., Seroquel 25 mg b.i.d. and 50 mg daily, Zoloft 100 mg a day. FAMILY HISTORY: Noncontributory. SOCIAL HISTORY: No history of alcohol, drug abuse, physical, sexual, or elder abuse history is noted. He is not known to be a perpetrator. REACTION TO HOSPITALIZATION: The patient accepting of it. ASSETS: Supportive, living at the facility, reasonable cognition at times. MENTAL STATUS EXAMINATION: The patient was seen individually in the evening of 06/30/2019 in his room. He is oriented to himself, was quite agitated with nursing staff before I met with him. Speech moderate latency, often responses monosyllabic. Abstraction fair, computation impaired, language function intact, attention span short. Mood and affect remains labile. Short-term memory is impaired. LABORATORY DATA: Reviewed. IMPRESSION: Bipolar disorder, mixed with psychotic features; major neurocognitive disorder; Alzheimer, vascular with delusion; anxiety disorder, unspecified; impulse control disorder, unspecified; urinary tract infection. Rest diagnoses unchanged as above. PLAN: Admit to Geropsychiatry Unit at [facility]. I will see the patient daily individually from a psychiatric standpoint. Medical followup with Dr. Sorenson. Continue the patient on his current psychotropics. Consider Depakote as a mood stabilizer given his bipolar disorder diagnosis. We will make further changes as clinically indicated. Estimated length of stay 10-12 days. DISPOSITION: Back to shelter when stable. REACTION TO HOSPITALIZATION: The patient accepting of it. MAN Twin JEWELL MD DR: SHERLEY/vandana JOB#: [id number] / [id number]
--- NOTE | 2019-07-01 18:44 | NUR ---
Pt IV has been discontinued per Dr. Sorenson's order.
[2019-07-01] MEDS: SIMVASTATIN 20 MG TABLET PO SCH (20:54)
[2019-07-01] MEDS: POLYVINYL ALCOHOL/POVIDONE/PF OPHTH SOLUTION DROPERETTE. OU SCH (20:57)
[2019-07-01] MEDS: DIVALPROEX ER 500 MG TAB.ER.24H PO SCH (20:57)
[2019-07-01] MEDS: QUEtiapine 50 MG TABLET. PO SCH (21:00)
[2019-07-01] MEDS: TERAZOSIN 5 MG CAPSULE. PO SCH (21:03)
--- NOTE | 2019-07-01 23:23 | PDOC ---
Exam Note: Devonte Note: Please also refer to the separate dictated note~for this date of service dictated separately.~Patient seen individually. Discussed the patient with Nursing staff reviewed the chart.~Reviewed interim history and current functioning. Reviewed vital signs,~Labs/ Radiology~and current medications noted below. Continue current treatment with the changes noted in the dictated addendum note Assessment: Vital Signs/I&O: Vital Signs Date Time Temp Pulse Resp B/P (MAP) Pulse Ox O2 Delivery O2 Flow Rate FiO2 07/01/19 21:03 101 111/78 07/01/19 20:36 93 Nasal Cannula 2.5 07/01/19 16:23 97.8 15 I & O 06/30/19 06/30/19 07/01/19 15:00 23:00 07:00 Intake Total 240 ml 300 ml Balance 240 ml 300 ml Labs: Laboratory Tests Test 07/01/19 07:34 07/01/19 12:15 07/01/19 17:01 07/01/19 19:33 Glucose (Fingerstick) 178 mg/dL (70-99) H 210 mg/dL (70-99) H 156 mg/dL (70-99) H 155 mg/dL (70-99) H Current Medications: Meds: Current Medications Medications (Trade) Dose Ordered Sig/Zeina Route PRN Reason Start Time Stop Time Status Last Admin Dose Admin Insulin Glargine (Lantus Syringe) 18 unit DAILY SQ 07/01/19 09:00 07/01/19 09:29 Levothyroxine Sodium (Synthroid) 150 mcg DAILY06 PO 07/01/19 06:00 07/01/19 05:18 Nystatin (Nystop) 1 jasmin BID TP 07/01/19 09:00 07/01/19 08:09 Divalproex Sodium (Depakote Er) 500 mg QHS PO 07/01/19 21:00 07/01/19 20:57 I have reviewed the current psychotropics carefully including drug interactions. Risk benefit ratio favors no change other than as noted in my dictated progress note. Diagnosis: Problems: (1) Dementia, vascular, with delusions (2) Dementia in Alzheimer's disease with delusions (3) Major neurocognitive disorder (4) Anxiety disorder (5) Bipolar affective, mixed, severe (6) Impulse control disorder BIPIN JEWELL MD Jul 01, 2019 23:23
[2019-07-02] MEDS: IPRATRPIUM/ALBUTEROL 0.5/2.5MG 3 ML NEBU. NEB SCH ×4 (04:36→19:45)
[2019-07-02] MEDS: LEVOTHYROXINE 150 MCG TABLET PO SCH (05:26)
--- NOTE | 2019-07-02 05:42 | NUR ---
NSg NOte: Patient was in day room at time of medication administration and assessments. Patient was agitated at the time, saying he wanted to go to bed. Patient seemed over stimulated. Patient took medications crushed in apple sauce. Patient eventually went to sleep and no other notable behaviors.
[2019-07-02 06:06] VITALS: BP 116/61
[2019-07-02] MEDS: busPIRone 15 MG TABLET. PO SCH ×4 (08:42→20:23)
[2019-07-02] MEDS: NICOTINE 14MG PATCH. TD SCH (08:42)
[2019-07-02] MEDS: CHOLECALCIFEROL (VITAMIN D3) 1,000 UNIT TABLET PO SCH (08:43)
[2019-07-02] MEDS: SERTRALINE 100 MG TABLET. PO SCH (08:43)
[2019-07-02] MEDS: ALLOPURINOL 100 MG TABLET. PO SCH ×3 (08:43→20:21)
[2019-07-02] MEDS: metOLazone 5 MG TABLET PO SCH (08:43)
[2019-07-02] MEDS: ASPIRIN ENTERIC COATED 325 MG TABLET.DR. PO SCH (08:43)
[2019-07-02] MEDS: FINASTERIDE 5 MG TABLET PO SCH (08:43)
[2019-07-02] MEDS: MULTIVITAMIN with MINERAL TABLET. PO SCH (08:43)
[2019-07-02] MEDS: QUEtiapine 25 MG TABLET. PO SCH ×2 (08:43→14:20)
[2019-07-02] MEDS: POTASSIUM CHLORIDE 20 MEQ TABLET.ER. PO SCH (08:43)
[2019-07-02] MEDS: FUROSEMIDE 40 MG TABLET PO SCH (08:43)
[2019-07-02] MEDS: MEMANTINE 10 MG TABLET. PO SCH ×2 (08:44→20:21)
[2019-07-02] MEDS: METOPROLOL TART IMMED RELEASE 25 MG TABLET PO SCH ×2 (08:44→20:23)
[2019-07-02] MEDS: MAGNESIUM OXIDE 400 MG TABLET PO SCH ×3 (08:44→20:21)
[2019-07-02] MEDS: LISINOPRIL 10 MG TABLET PO SCH (08:44)
[2019-07-02] MEDS ORDERED: SERTRALINE 25 MG TABLET. PO SCH (09:00)
[2019-07-02] MEDS: INSULIN LISPRO 300 UNITS/3 ML VIAL. SQ SCH ×3 (09:01→17:32)
[2019-07-02] MEDS: INSULIN GLARGINE SYRINGE. SQ SCH ×2 (09:11→21:41)
[2019-07-02] MEDS: NYSTATIN TOPICAL POWDER 15GM BOTTLE. TP SCH ×2 (09:11→20:22)
[2019-07-02] MEDS: BUDESONIDE 0.5 MG/2 ML NEBU NEB SCH ×2 (09:17→19:45)
--- NOTE | 2019-07-02 13:33 | NUR ---
Activity Therapy Assessment Completed based on observation, notes, and attempted interview. Pt. in the day room after morning group and greeted therapist. Pt. introduced self as 'Cupcake' and smiled at therapist. Pt. stated he was hungry and ready for lunch. Pt. also told therapist he missed his 'puzzle book'. Therapist offered a word search book and Pt. smiled, stating that those were the puzzles he liked. Pt. left the room to go to lunch then. Pt. uses a wheelchair to ambulate, is on oxygen support and is very hard of hearing. Pt. is generally calm, quiet, and cooperative with staff. Pt. is easily redirected and sleeps often. Pt. is often in the day room or around group but tends to sleep. Pt. is aware he is at the hospital and that it is Elena time but does not seem aware of why he was brought to the unit. Initial goal aimed to increase engagement: Pt. will participate in three Activity Therapy groups or individual sessions per week.
[2019-07-02 16:13] VITALS: BP 109/56
--- NOTE | 2019-07-02 18:30 | NUR ---
Patient has been calm, compliant, pleasant, and interactive throughout this shift. After dinner, patient became loud, demanding, and was yelling in his room. He was upset that no one had helped him into bed after dinner, he was stating 'this is a no good hospital' and that he had been waiting for over half an hour. When staff approached him, he was sarcastic and demanding. Will continue to monitor and report to oncoming shift.
[2019-07-02] MEDS: ASCORBIC ACID 500 MG TABLET PO SCH (20:21)
[2019-07-02] MEDS: QUEtiapine 50 MG TABLET. PO SCH (20:21)
[2019-07-02] MEDS: SIMVASTATIN 20 MG TABLET PO SCH (20:21)
[2019-07-02] MEDS: DIVALPROEX ER 500 MG TAB.ER.24H PO SCH (20:23)
[2019-07-02] MEDS: TERAZOSIN 5 MG CAPSULE. PO SCH (20:23)
[2019-07-02] MEDS: POLYVINYL ALCOHOL/POVIDONE/PF OPHTH SOLUTION DROPERETTE. OU SCH (20:24)
--- NOTE | 2019-07-02 20:40 | PDOC ---
Exam Note: Devonte Note: Please also refer to the separate dictated note~for this date of service dictated separately.~Patient seen individually. Discussed the patient with Nursing staff reviewed the chart.~Reviewed interim history and current functioning. Reviewed vital signs,~Labs/ Radiology~and current medications noted below. Continue current treatment with the changes noted in the dictated addendum note Assessment: Vital Signs/I&O: Vital Signs Date Time Temp Pulse Resp B/P (MAP) Pulse Ox O2 Delivery O2 Flow Rate FiO2 07/02/19 20:23 87 109/56 07/02/19 19:48 97 Nasal Cannula 3.0 07/02/19 16:13 97.7 18 I & O 0 07/01/19 07/01/19 07/02/19 15:00 23:00 07:00 Intake Total 600 ml 240 ml Balance 600 ml 240 ml Labs: Laboratory Tests Test 07/02/19 07:42 07/02/19 11:43 07/02/19 17:24 07/02/19 19:32 Glucose (Fingerstick) 126 mg/dL (70-99) H 299 mg/dL (70-99) H 279 mg/dL (70-99) H 244 mg/dL (70-99) H Current Medications: Meds: Current Medications Medications (Trade) Dose Ordered Sig/Zeina Route PRN Reason Start Time Stop Time Status Last Admin Dose Admin Divalproex Sodium (Depakote Er) 500 mg QHS PO 07/01/19 21:00 07/02/19 20:23 Ascorbic Acid (Vitamin C) 500 mg BID PO 07/02/19 21:00 07/02/19 20:21 I have reviewed the current psychotropics carefully including drug interactions. Risk benefit ratio favors no change other than as noted in my dictated progress note. Diagnosis: Problems: (1) Dementia, vascular, with delusions (2) Dementia in Alzheimer's disease with delusions (3) Major neurocognitive disorder (4) Anxiety disorder (5) Bipolar affective, mixed, severe (6) Impulse control disorder BIPIN JEWELL MD Jul 02, 2019 20:40
--- NOTE | 2019-07-02 22:45 | NUR ---
Nursing note: Assumed care of pt in his room. He was sleeping but able to awaken long enough for medical record technician and assessment. He was compliant but drowsy. No c/o pain, no behaviors.
[2019-07-03 04:55] VITALS: BP 133/73
[2019-07-03] MEDS: IPRATRPIUM/ALBUTEROL 0.5/2.5MG 3 ML NEBU. NEB SCH ×4 (05:06→22:37)
[2019-07-03] MEDS: BUDESONIDE 0.5 MG/2 ML NEBU NEB SCH ×2 (05:06→22:37)
[2019-07-03] MEDS: LEVOTHYROXINE 150 MCG TABLET PO SCH (05:17)
[2019-07-03] MEDS: POTASSIUM CHLORIDE 20 MEQ TABLET.ER. PO SCH (08:13)
[2019-07-03] MEDS: busPIRone 15 MG TABLET. PO SCH ×4 (08:13→20:14)
[2019-07-03] MEDS: ASPIRIN ENTERIC COATED 325 MG TABLET.DR. PO SCH (08:13)
[2019-07-03] MEDS: FUROSEMIDE 40 MG TABLET PO SCH (08:14)
[2019-07-03] MEDS: METOPROLOL TART IMMED RELEASE 25 MG TABLET PO SCH ×2 (08:15→20:16)
[2019-07-03] MEDS: MEMANTINE 10 MG TABLET. PO SCH ×2 (08:15→20:16)
[2019-07-03] MEDS: MAGNESIUM OXIDE 400 MG TABLET PO SCH ×3 (08:15→20:16)
[2019-07-03] MEDS: MULTIVITAMIN with MINERAL TABLET. PO SCH (08:16)
[2019-07-03] MEDS: ASCORBIC ACID 500 MG TABLET PO SCH ×2 (08:16→20:16)
[2019-07-03] MEDS: LISINOPRIL 10 MG TABLET PO SCH (08:16)
[2019-07-03] MEDS: QUEtiapine 25 MG TABLET. PO SCH ×2 (08:16→13:11)
[2019-07-03] MEDS: FINASTERIDE 5 MG TABLET PO SCH (08:16)
[2019-07-03] MEDS: NYSTATIN TOPICAL POWDER 15GM BOTTLE. TP SCH ×2 (08:17→20:18)
[2019-07-03] MEDS: ALLOPURINOL 100 MG TABLET. PO SCH ×3 (08:17→20:17)
[2019-07-03] MEDS: metOLazone 5 MG TABLET PO SCH (08:17)
[2019-07-03] MEDS: NICOTINE 14MG PATCH. TD SCH (08:17)
[2019-07-03] MEDS: CHOLECALCIFEROL (VITAMIN D3) 1,000 UNIT TABLET PO SCH (08:17)
[2019-07-03] MEDS: SERTRALINE 100 MG TABLET. PO SCH (08:17)
[2019-07-03] MEDS: INSULIN LISPRO 300 UNITS/3 ML VIAL. SQ SCH ×3 (08:19→17:21)
[2019-07-03] MEDS: INSULIN GLARGINE SYRINGE. SQ SCH ×2 (08:19→20:17)
--- NOTE | 2019-07-03 11:05 | NUR ---
Patient was in the dining room during morning rounding, took medications crushed in apple sauce, allowed for morning assessment. Patient is cheerful, told the nurse "I want your shoes, take those off and give them to me." No agitation, pt denies pain, has been visiting with staff. Will continue to monitor.
[2019-07-03 16:05] VITALS: BP 163/73
[2019-07-03] MEDS: POLYVINYL ALCOHOL/POVIDONE/PF OPHTH SOLUTION DROPERETTE. OU SCH (20:14)
[2019-07-03] MEDS: TERAZOSIN 5 MG CAPSULE. PO SCH (20:15)
[2019-07-03] MEDS: DIVALPROEX ER 500 MG TAB.ER.24H PO SCH (20:15)
[2019-07-03] MEDS: SIMVASTATIN 20 MG TABLET PO SCH (20:16)
[2019-07-03] MEDS: QUEtiapine 50 MG TABLET. PO SCH (20:16)
--- NOTE | 2019-07-03 21:27 | PDOC ---
Exam Note: Devonte Note: Please also refer to the separate dictated note~for this date of service dictated separately.~Patient seen individually. Discussed the patient with Nursing staff reviewed the chart.~Reviewed interim history and current functioning. Reviewed vital signs,~Labs/ Radiology~and current medications noted below. Continue current treatment with the changes noted in the dictated addendum note Assessment: Vital Signs/I&O: Vital Signs Date Time Temp Pulse Resp B/P (MAP) Pulse Ox O2 Delivery O2 Flow Rate FiO2 07/03/19 20:16 98 163/73 07/03/19 16:05 97.4 16 94 Room Air 07/03/19 05:08 3.0 I & O 07/02/19 07/02/19 07/03/19 15:00 23:00 07:00 Intake Total 480 ml 600 ml Balance 480 ml 600 ml Labs: Laboratory Tests Test 07/03/19 07:47 07/03/19 11:52 07/03/19 16:34 07/03/19 19:23 Glucose (Fingerstick) 167 mg/dL (70-99) H 255 mg/dL (70-99) H 256 mg/dL (70-99) H 211 mg/dL (70-99) H Current Medications: Meds: Current Medications Medications (Trade) Dose Ordered Sig/Zeina Route PRN Reason Start Time Stop Time Status Last Admin Dose Admin Metolazone (Zaroxolyn) 10 mg QFR@0900 PO 07/03/19 09:00 07/03/19 08:17 I have reviewed the current psychotropics carefully including drug interactions. Risk benefit ratio favors no change other than as noted in my dictated progress note. Diagnosis: Problems: (1) Dementia, vascular, with delusions (2) Dementia in Alzheimer's disease with delusions (3) Major neurocognitive disorder (4) Poorly controlled diabetes mellitus (5) Medical clearance for psychiatric admission (6) Anxiety disorder (7) Bipolar affective, mixed, severe (8) Impulse control disorder BIPIN JEWELL MD Jul 03, 2019 21:27
--- NOTE | 2019-07-03 22:38 | NUR ---
Patient was given medication but scanned earlier dose (1700).
--- NOTE | 2019-07-03 23:16 | NUR ---
Nursing note: Assumed care of pt in his room where he was sleeping. He awakens easily but still very sleepy. He was compliant with meds in food but too sleepy to interact. No s/s or c/o pain.
--- NOTE | 2019-07-03 23:16 | PN ---
DATE: 07/01/2019 PSYCHIATRIC PROGRESS NOTE This late entry 07/01/2019 covers elements not covered in my initial note. SUBJECTIVE: I met with the patient evening of 07/01/2019. Per report from TRACI Nielsen, the patient slept 5-3/4 hours previous night. He has some short-term memory deficits, ongoing mood lability, but generally mood has been better on 07/01/2019. He frequently demands to go to bed, gets agitated, repetitive, loud, intrusive if this is not done right away. REVIEW OF SYSTEMS: Ambulation impaired, in wheelchair. No CV, , PULMONARY, EYE system symptoms on review. MENTAL STATUS EXAM: Oriented to himself and situation. Speech can be coherent, rapid, loud. Abstraction fair, computation impaired, language function intact. Mood and affect remains labile. LABORATORY DATA: Reviewed. IMPRESSION: Bipolar 1 disorder, mixed with psychotic features; mild cognitive impairment; anxiety disorder, unspecified; impulse control disorder, unspecified; probable urinary tract infection. PLAN: Start Depakote ER 500 mg p.o. at bedtime. Check CBC, CMP, valproic acid level in 3 days. Get urine C and S back and treat as appropriate, maintain BuSpar, Namenda, Seroquel, Zoloft for now. MAN Twin JEWELL MD DR: SHERLEY/vandana JOB#: [id number] / [id number]
--- NOTE | 2019-07-03 23:21 | PN ---
DATE: 07/02/2019 This late entry 07/02 covers elements not covered in my initial note. SUBJECTIVE: I met with the patient evening of 07/02. The patient slept 6-3/4 hours previous night. Previous night, he was hyperverbal, aggressive, demanding, did better later. Alexandre did call me and we added Zyprexa 5 mg q. 2 hours p.r.n. psychosis, agitation, max 15 mg in 24 hours. REVIEW OF SYSTEMS: Ambulation impaired, in wheelchair. No CV, , pulmonary, eye system symptoms on review. MENTAL STATUS EXAM: Reasonably oriented. Speech coherent, can be rapid, loud at times. Abstraction fair, computation impaired, language function intact, attention span short. Mood and affect remains labile. LABORATORY DATA: Reviewed. IMPRESSION: Bipolar 1 disorder, mixed, mild cognitive impairment; anxiety disorder, unspecified. PLAN: Continue psychotropics from initial note. Adjust Depakote to reach therapeutic level. BIPIN JEWELL MD DR: SHERLEY/vandana JOB#: [id number] / [id number]
[2019-07-04] MEDS: LEVOTHYROXINE 150 MCG TABLET PO SCH (04:09)
[2019-07-04] MEDS: IPRATRPIUM/ALBUTEROL 0.5/2.5MG 3 ML NEBU. NEB SCH ×4 (04:46→23:21)
[2019-07-04 04:51] VITALS: BP 128/83
[2019-07-04 07:27] LABS: BASO # 0.1 x10^3/uL (0.0-0.2); BASO % 1 % (0-3); EOS # 0.3 x10^3/uL (0.0-0.7); EOS % 3 % (0-3); HEMATOCRIT 38.4 % (39.0-53.0); HEMOGLOBIN 12.5 g/dL (13.0-17.5); LYMPH # 1.6 x10^3/uL (1.0-4.8); LYMPH % 18 % (24-48); MEAN CORPUSCULAR HEMOGLOBIN 31 pg (25-35); MEAN CORPUSCULAR HGB CONC 33 g/dL (31-37); MEAN CORPUSCULAR VOLUME 94 fL (79-100); MONO # 0.6 x10^3/uL (0.0-1.1); MONO % 6 % (0-9); NEUT # 6.6 x10^3uL (1.8-7.7); NEUT % 72 % (31-73); PLATELET COUNT 267 x10^3/uL (140-400); RED BLOOD COUNT 4.07 x10^6/uL (4.30-5.70); RED CELL DISTRIBUTION WIDTH 14.6 % (11.5-14.5); WHITE BLOOD COUNT 9.2 x10^3/uL (4.0-11.0)
[2019-07-04 07:37] LABS: ALBUMIN 2.9 g/dL (3.4-5.0); ALBUMIN/GLOBULIN RATIO 0.6 (1.0-1.7); ALK PHOS 104 U/L (46-116); ALT (SGPT) 24 U/L (16-63); ANION GAP 10 (6-14); AST (SGOT) 22 U/L (15-37); BLOOD UREA NITROGEN 46 mg/dL (8-26); BUN/CREATININE RATIO 35 (6-20); CALCIUM 9.4 mg/dL (8.5-10.1); CARBON DIOXIDE 27 mmol/L (21-32); CHLORIDE 101 mmol/L (98-107); CREATININE 1.3 mg/dL (0.7-1.3); GFR 52.3; GLUCOSE 129 mg/dL (70-99); POTASSIUM 4.4 mmol/L (3.5-5.1); SODIUM 138 mmol/L (136-145); TOTAL BILIRUBIN 0.3 mg/dL (0.2-1.0); TOTAL PROTEIN 7.4 g/dL (6.4-8.2)
[2019-07-04 07:39] LABS: VAL ACID 34 mcg/mL (50-100)
[2019-07-04] MEDS: INSULIN GLARGINE SYRINGE. SQ SCH ×2 (09:00→20:04)
[2019-07-04] MEDS: ASPIRIN ENTERIC COATED 325 MG TABLET.DR. PO SCH (09:18)
[2019-07-04] MEDS: FINASTERIDE 5 MG TABLET PO SCH (09:18)
[2019-07-04] MEDS: METOPROLOL TART IMMED RELEASE 25 MG TABLET PO SCH ×2 (09:20→20:02)
[2019-07-04] MEDS: MULTIVITAMIN with MINERAL TABLET. PO SCH (09:21)
[2019-07-04] MEDS: FUROSEMIDE 40 MG TABLET PO SCH (09:21)
[2019-07-04] MEDS: LISINOPRIL 10 MG TABLET PO SCH (09:21)
[2019-07-04] MEDS: ALLOPURINOL 100 MG TABLET. PO SCH ×3 (09:21→20:01)
[2019-07-04] MEDS: SERTRALINE 100 MG TABLET. PO SCH (09:21)
[2019-07-04] MEDS: metOLazone 5 MG TABLET PO SCH (09:22)
[2019-07-04] MEDS: MAGNESIUM OXIDE 400 MG TABLET PO SCH ×3 (09:22→20:02)
[2019-07-04] MEDS: POTASSIUM CHLORIDE 20 MEQ TABLET.ER. PO SCH (09:22)
[2019-07-04] MEDS: CHOLECALCIFEROL (VITAMIN D3) 1,000 UNIT TABLET PO SCH (09:22)
[2019-07-04] MEDS: ASCORBIC ACID 500 MG TABLET PO SCH ×2 (09:22→20:01)
[2019-07-04] MEDS: QUEtiapine 25 MG TABLET. PO SCH ×2 (09:22→14:14)
[2019-07-04] MEDS: busPIRone 15 MG TABLET. PO SCH ×4 (09:22→20:01)
[2019-07-04] MEDS: MEMANTINE 10 MG TABLET. PO SCH ×2 (09:22→20:02)
[2019-07-04] MEDS: NICOTINE 14MG PATCH. TD SCH (09:23)
[2019-07-04] MEDS: INSULIN LISPRO 300 UNITS/3 ML VIAL. SQ SCH ×3 (09:32→17:23)
[2019-07-04] MEDS: BUDESONIDE 0.5 MG/2 ML NEBU NEB SCH ×2 (10:07→23:21)
--- NOTE | 2019-07-04 10:57 | NUR ---
Pt. has been upset this morning in the dayroom. Yelling out at staff, c/o constantly of small things. Has mild M/R . Attention seeking, has been seated in w/c. Started throwing tissues at other people after using. Removed pt. to his room for assessment. Has very wet non productive cough and is SOB with inspiratory wheeze on R side. While he was allowed to talk 1:1 became calm. Is friendly and smiling, unable to deal with high stimulation in dayroom. Alert to place and time and person. Reports he had a hernia repair which is the place where his current pressure ulcer is covered.
--- NOTE | 2019-07-04 11:23 | NUR ---
Relates he likes to do the word search puzzles, but at his home facility he has 6 different colors to help him keep track of things. Also states he has glasses at home so can not see the puzzles here. Related that there is a woman he sits with at meals at [facility] who is very messy, and that bothers him a lot. Aware that he had become angry and lost his temper. Instructed we are trying to help him not to lose his temper again. Short term memory loss. Repetitve in stories.
[2019-07-04] MEDS: NYSTATIN TOPICAL POWDER 15GM BOTTLE. TP SCH ×2 (12:27→20:01)
--- NOTE | 2019-07-04 15:46 | NUR ---
Again, became agitated with a staff member in the dayroom. Allowed quiet time in the quiet barraza. Informed him CXR was to be performed, then she had to delay arrival. Pt. needed pericare, shower given by 2 aides. He was cooperative, shaved, loud at times but non combative. Dressing changed on L hip area at that time with photo. Aquacel foam covered only at that time. Portable CXR to be done now in his room.
[2019-07-04 16:08] VITALS: BP 143/75
--- NOTE | 2019-07-04 16:44 | RAD ---
EXAM: CHEST 1 VIEW History: Congestion COMPARISON: 06/30/2019 TECHNIQUE: Single portable radiograph of the chest FINDINGS: Mild cardiomegaly . Mild prominent bilateral interstitial lung markings . Mild bibasilar lung airspace opacities likely atelectasis or infiltrates. IMPRESSION: Mild bibasilar lung airspace opacities likely atelectasis or infiltrates or edema. Electronically signed by: Zoltan Montero MD (07/04/2019 4:41 PM) [facility]
[2019-07-04] MEDS: TERAZOSIN 5 MG CAPSULE. PO SCH (20:01)
[2019-07-04] MEDS: QUEtiapine 50 MG TABLET. PO SCH (20:02)
[2019-07-04] MEDS: DIVALPROEX ER 500 MG TAB.ER.24H PO SCH (20:02)
[2019-07-04] MEDS: POLYVINYL ALCOHOL/POVIDONE/PF OPHTH SOLUTION DROPERETTE. OU SCH (20:03)
[2019-07-04] MEDS: SIMVASTATIN 20 MG TABLET PO SCH (20:03)
--- NOTE | 2019-07-04 21:28 | PDOC ---
Exam Note: Devonte Note: Please also refer to the separate dictated note~for this date of service dictated separately.~Patient seen individually. Discussed the patient with Nursing staff reviewed the chart.~Reviewed interim history and current functioning. Reviewed vital signs,~Labs/ Radiology~and current medications noted below. Continue current treatment with the changes noted in the dictated addendum note Assessment: Vital Signs/I&O: Vital Signs Date Time Temp Pulse Resp B/P (MAP) Pulse Ox O2 Delivery O2 Flow Rate FiO2 07/04/19 20:46 95 Room Air 07/04/19 20:02 84 143/75 07/04/19 16:08 97.8 18 07/04/19 04:45 3.0 I & O 07/03/19 07/03/19 07/04/19 15:00 23:00 07:00 Intake Total 700 ml 360 ml Balance 700 ml 360 ml Labs: Laboratory Tests Test 07/04/19 06:54 07/04/19 07:31 07/04/19 11:20 07/04/19 16:17 White Blood Count 9.2 x10^3/uL (4.0-11.0) Red Blood Count 4.07 x10^6/uL (4.30-5.70) L Hemoglobin 12.5 g/dL (13.0-17.5) L Hematocrit 38.4 % (39.0-53.0) L Mean Corpuscular Volume 94 fL (79-100) Mean Corpuscular Hemoglobin 31 pg (25-35) Mean Corpuscular Hemoglobin Concent 33 g/dL (31-37) Red Cell Distribution Width 14.6 % (11.5-14.5) H Platelet Count 267 x10^3/uL (140-400) Neutrophils (%) (Auto) 72 % (31-73) Lymphocytes (%) (Auto) 18 % (24-48) L Monocytes (%) (Auto) 6 % (0-9) Eosinophils (%) (Auto) 3 % (0-3) Basophils (%) (Auto) 1 % (0-3) Neutrophils # (Auto) 6.6 x10^3uL (1.8-7.7) Lymphocytes # (Auto) 1.6 x10^3/uL (1.0-4.8) Monocytes # (Auto) 0.6 x10^3/uL (0.0-1.1) Eosinophils # (Auto) 0.3 x10^3/uL (0.0-0.7) Basophils # (Auto) 0.1 x10^3/uL (0.0-0.2) Sodium Level 138 mmol/L (136-145) Potassium Level 4.4 mmol/L (3.5-5.1) Chloride Level 101 mmol/L (98-107) Carbon Dioxide Level 27 mmol/L (21-32) Anion Gap 10 (6-14) Blood Urea Nitrogen 46 mg/dL (8-26) H Creatinine 1.3 mg/dL (0.7-1.3) Estimated GFR (Cockcroft-Gault) 52.3 BUN/Creatinine Ratio 35 (6-20) H Glucose Level 129 mg/dL (70-99) H Calcium Level 9.4 mg/dL (8.5-10.1) Total Bilirubin 0.3 mg/dL (0.2-1.0) Aspartate Amino Transferase (AST) 22 U/L (15-37) Alanine Aminotransferase (ALT) 24 U/L (16-63) Alkaline Phosphatase 104 U/L (46-116) Total Protein 7.4 g/dL (6.4-8.2) Albumin 2.9 g/dL (3.4-5.0) L Albumin/Globulin Ratio 0.6 (1.0-1.7) L Valproic Acid Level 34 mcg/mL (50-100) L Valproic Acid Last Dose Date 07/03/19 Valproic Acid Last Dose Time 2100 Glucose (Fingerstick) 151 mg/dL (70-99) H 174 mg/dL (70-99) H 177 mg/dL (70-99) H Test 07/04/19 19:21 Glucose (Fingerstick) 106 mg/dL (70-99) H Current Medications: I have reviewed the current psychotropics carefully including drug interactions. Risk benefit ratio favors no change other than as noted in my dictated progress note. Diagnosis: Problems: (1) Dementia, vascular, with delusions (2) Dementia in Alzheimer's disease with delusions (3) Major neurocognitive disorder (4) Atrial fibrillation (5) Urinary tract infection (6) Poorly controlled diabetes mellitus (7) Medical clearance for psychiatric admission (8) Anxiety disorder (9) Bipolar affective, mixed, severe (10) Impulse control disorder BIPIN JEWELL MD Jul 04, 2019 21:28
--- NOTE | 2019-07-04 21:50 | NUR ---
Nursing note: Assumed care of pt in the day room. He is irritated and verbalizing how mad he is because they will not let him go to bed. Pt stated he will go to [facility] next time. He wants to stay in bed all the time. Pt advised he will be taken to bed after his meds are administered. He was compliant with meds crushed in applesauce, his preference. No c/o pain.
[2019-07-05] MEDS: LEVOTHYROXINE 150 MCG TABLET PO SCH (04:52)
[2019-07-05 05:32] VITALS: BP 132/48
[2019-07-05] MEDS: IPRATRPIUM/ALBUTEROL 0.5/2.5MG 3 ML NEBU. NEB SCH ×3 (06:21→22:03)
[2019-07-05] MEDS ORDERED: metOLazone 5 MG TABLET PO SCH (09:00)
[2019-07-05] MEDS: NYSTATIN TOPICAL POWDER 15GM BOTTLE. TP SCH ×2 (09:00→20:26)
[2019-07-05] MEDS: BUDESONIDE 0.5 MG/2 ML NEBU NEB SCH ×2 (10:36→22:03)
[2019-07-05] MEDS: NICOTINE 14MG PATCH. TD SCH (10:41)
[2019-07-05] MEDS: busPIRone 15 MG TABLET. PO SCH ×4 (10:41→20:09)
[2019-07-05] MEDS: ASCORBIC ACID 500 MG TABLET PO SCH ×2 (10:42→20:12)
[2019-07-05] MEDS: FUROSEMIDE 40 MG TABLET PO SCH (10:42)
[2019-07-05] MEDS: POTASSIUM CHLORIDE 20 MEQ TABLET.ER. PO SCH (10:43)
[2019-07-05] MEDS: MULTIVITAMIN with MINERAL TABLET. PO SCH (10:43)
[2019-07-05] MEDS: MAGNESIUM OXIDE 400 MG TABLET PO SCH ×3 (10:43→20:12)
[2019-07-05] MEDS: LISINOPRIL 10 MG TABLET PO SCH (10:43)
[2019-07-05] MEDS: ASPIRIN ENTERIC COATED 325 MG TABLET.DR. PO SCH (10:43)
[2019-07-05] MEDS: MEMANTINE 10 MG TABLET. PO SCH ×2 (10:45→20:11)
[2019-07-05] MEDS: SERTRALINE 100 MG TABLET. PO SCH (10:45)
[2019-07-05] MEDS: METOPROLOL TART IMMED RELEASE 25 MG TABLET PO SCH ×2 (10:45→20:11)
[2019-07-05] MEDS: INSULIN LISPRO 300 UNITS/3 ML VIAL. SQ SCH ×3 (10:48→17:27)
[2019-07-05] MEDS: CHOLECALCIFEROL (VITAMIN D3) 1,000 UNIT TABLET PO SCH (10:49)
[2019-07-05] MEDS: INSULIN GLARGINE SYRINGE. SQ SCH ×2 (10:49→20:13)
[2019-07-05] MEDS: QUEtiapine 25 MG TABLET. PO SCH ×2 (10:50→13:47)
[2019-07-05] MEDS: ALLOPURINOL 100 MG TABLET. PO SCH ×3 (10:50→20:11)
[2019-07-05] MEDS: FINASTERIDE 5 MG TABLET PO SCH (10:50)
--- NOTE | 2019-07-05 12:39 | NUR ---
Pt. had gone back to bed after eating breakfast early this a.m. When I arrived to his room for assessment around 10 a.m. he was awake in bed, HOB elevated 45 degrees, with audible wheezing and stridor. He stated this is not worse than normal for him when questioned. R = 40, shallow, wet moist cough, productive, but he swallows all phlegm. O2 sat = 95% and P 102. PC to Dr. Sorenson, orders received to increase his breathing tx. to q 4 hours, and to give one now. After I gave pulmicort per neb, he was given rachelle care, and dressing changed to L hip. Transferred with assist of 2, no further respiratory distress observed while eating lunch. Pleasant and cooperative, but very limited ability to wait when he needs care or voices a need. Today, so far, no adverse behavior noted.
[2019-07-05 15:35] VITALS: BP 114/60
[2019-07-05] MEDS: TERAZOSIN 5 MG CAPSULE. PO SCH (20:10)
[2019-07-05] MEDS: SIMVASTATIN 20 MG TABLET PO SCH (20:10)
[2019-07-05] MEDS: QUEtiapine 50 MG TABLET. PO SCH (20:12)
[2019-07-05] MEDS: POLYVINYL ALCOHOL/POVIDONE/PF OPHTH SOLUTION DROPERETTE. OU SCH (20:12)
[2019-07-05] MEDS: DIVALPROEX ER 500 MG TAB.ER.24H PO SCH (20:12)
--- NOTE | 2019-07-05 21:04 | PDOC ---
Exam Note: Devonte Note: Please also refer to the separate dictated note~for this date of service dictated separately.~Patient seen individually. Discussed the patient with Nursing staff reviewed the chart.~Reviewed interim history and current functioning. Reviewed vital signs,~Labs/ Radiology~and current medications noted below. Continue current treatment with the changes noted in the dictated addendum note Assessment: Vital Signs/I&O: Vital Signs Date Time Temp Pulse Resp B/P (MAP) Pulse Ox O2 Delivery O2 Flow Rate FiO2 07/05/19 20:11 101 114/60 07/05/19 16:12 95 Room Air 07/05/19 15:35 97.0 20 07/04/19 04:45 3.0 I & O 07/04/19 07/04/19 07/05/19 14:59 22:59 06:59 Intake Total 720 ml 240 ml 120 ml Balance 720 ml 240 ml 120 ml Labs: Laboratory Tests Test 07/05/19 07:54 07/05/19 11:26 07/05/19 17:00 07/05/19 19:18 Glucose (Fingerstick) 107 mg/dL (70-99) H 166 mg/dL (70-99) H 175 mg/dL (70-99) H 161 mg/dL (70-99) H Current Medications: Meds: Current Medications Medications (Trade) Dose Ordered Sig/Zeina Route PRN Reason Start Time Stop Time Status Last Admin Dose Admin Metolazone (Zaroxolyn) 5 mg QSU@0900 PO 07/05/19 09:00 07/05/19 10:42 Albuterol/ Ipratropium (Duoneb) 3 ml Q4HRS NEB 07/05/19 16:00 07/05/19 16:11 Insulin Human Lispro (HumaLOG) 14 units TIDAC SQ 07/05/19 16:30 07/05/19 17:27 I have reviewed the current psychotropics carefully including drug interactions. Risk benefit ratio favors no change other than as noted in my dictated progress note. 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
[2019-07-05] MEDS: DIVALPROEX 125 MG CAP.SPRINK PO SCH (21:29)
[2019-07-06] MEDS: IPRATRPIUM/ALBUTEROL 0.5/2.5MG 3 ML NEBU. NEB SCH ×6 (04:00→20:54)
[2019-07-06 05:12] VITALS: BP 121/71
[2019-07-06] MEDS: LEVOTHYROXINE 150 MCG TABLET PO SCH (05:50)
--- NOTE | 2019-07-06 08:23 | PN ---
DATE: 07/04/2019 This late entry 07/04 covers elements not covered in my initial note. SUBJECTIVE: I met with the patient evening of 07/04. The patient slept 7-1/4 hours previous night. He remains anxious, restless, somewhat labile in his mood, loud at times, especially wanting to get back to bed. REVIEW OF SYSTEMS: Ambulation impaired. No CV, , pulmonary, eye system symptoms on review. MENTAL STATUS EXAMINATION: Oriented to himself, situation. Speech coherent, rapid, loud at times. Abstraction fair, computation impaired, language function intact, attention span short. Mood and affect remain somewhat labile, anxious, loud at times if he does not get to bed as soon as he wants to do that. LABORATORY DATA: Reviewed. IMPRESSION: Unchanged from initial note. PLAN: No change from initial note. Adjust Depakote post-labs. Maintain BuSpar, Seroquel, Zoloft for now. BIPIN JEWELL MD DR: SHERLEY/vandana JOB#: [id number] / [id number]
[2019-07-06] MEDS: BUDESONIDE 0.5 MG/2 ML NEBU NEB SCH ×2 (08:24→20:54)
--- NOTE | 2019-07-06 08:35 | PN ---
DATE: 07/03/2019 PSYCHIATRIC PROGRESS NOTE This late entry 07/03/2019 covers the elements not covered in my initial note. SUBJECTIVE: I met with the patient in the evening of 07/03/2019, staffed at a treatment team meeting with the entire team earlier in the day. The patient slept 6 hours previous night. Appetite is 50%. He remains quite demanding, labile, wanting to be back in bed at the least pretext and gets quite agitated, loud, disruptive, if this does not happen. REVIEW OF SYSTEMS: Ambulation impaired, in wheelchair. No CV, , pulmonary, eye, ENT system symptoms on review. Reliability poor. MENTAL STATUS EXAM: Oriented to himself, situation and more oriented at other times. Speech coherent, rapid, louder. Ambulation impaired, in wheelchair. Abstraction fair, computation impaired, language function intact, attention span short. Mood and affect labile. LABORATORY DATA: Reviewed. IMPRESSION: Bipolar disorder, mixed with psychotic features, mild cognitive impairment; impulse control disorder; anxiety disorder, unspecified; history of obsessive-compulsive disorder. PLAN: Depakote ER has been initiated 500 mg at bedtime. Check labs level on 07/04/2019 and adjust further as clinically indicated. Maintain BuSpar, Namenda, Seroquel, Zoloft along with Zyprexa p.r.n. MAN Twin JEWELL MD DR: SHERLEY/vandana JOB#: [id number] / [id number]
[2019-07-06] MEDS: NYSTATIN TOPICAL POWDER 15GM BOTTLE. TP SCH ×2 (09:16→19:59)
[2019-07-06] MEDS: METOPROLOL TART IMMED RELEASE 25 MG TABLET PO SCH ×2 (09:17→19:58)
[2019-07-06] MEDS: MULTIVITAMIN with MINERAL TABLET. PO SCH (09:18)
[2019-07-06] MEDS: FINASTERIDE 5 MG TABLET PO SCH (09:18)
[2019-07-06] MEDS: LISINOPRIL 10 MG TABLET PO SCH (09:18)
[2019-07-06] MEDS: ASCORBIC ACID 500 MG TABLET PO SCH ×2 (09:18→19:57)
[2019-07-06] MEDS: DIVALPROEX 125 MG CAP.SPRINK PO SCH ×2 (09:18→19:57)
[2019-07-06] MEDS: SERTRALINE 100 MG TABLET. PO SCH (09:18)
[2019-07-06] MEDS: MAGNESIUM OXIDE 400 MG TABLET PO SCH ×3 (09:18→19:58)
[2019-07-06] MEDS: metOLazone 5 MG TABLET PO SCH (09:18)
[2019-07-06] MEDS: FUROSEMIDE 40 MG TABLET PO SCH (09:19)
[2019-07-06] MEDS: ALLOPURINOL 100 MG TABLET. PO SCH ×3 (09:19→19:57)
[2019-07-06] MEDS: QUEtiapine 25 MG TABLET. PO SCH ×2 (09:19→13:29)
[2019-07-06] MEDS: POTASSIUM CHLORIDE 20 MEQ TABLET.ER. PO SCH (09:19)
[2019-07-06] MEDS: CHOLECALCIFEROL (VITAMIN D3) 1,000 UNIT TABLET PO SCH (09:19)
[2019-07-06] MEDS: MEMANTINE 10 MG TABLET. PO SCH ×2 (09:19→19:57)
[2019-07-06] MEDS: ASPIRIN ENTERIC COATED 325 MG TABLET.DR. PO SCH (09:19)
[2019-07-06] MEDS: busPIRone 15 MG TABLET. PO SCH ×4 (09:19→19:58)
[2019-07-06] MEDS: NICOTINE 14MG PATCH. TD SCH (09:20)
[2019-07-06] MEDS: INSULIN LISPRO 300 UNITS/3 ML VIAL. SQ SCH ×3 (09:21→16:30)
[2019-07-06] MEDS: INSULIN GLARGINE SYRINGE. SQ SCH ×2 (09:22→19:59)
--- NOTE | 2019-07-06 09:35 | PN ---
DATE: 07/05/2019 This late entry 07/05 covers elements not covered in my initial note. SUBJECTIVE: I met with the patient evening of 07/05. The patient slept 8-1/2 hours previous night. He seems to enjoy the coloring book, but gets extremely labile, loud, disruptive if he does not get to be put in bed as soon as he ask for it. He threatened to "blow up" the place earlier on 07/05 for the reason noted above. He has some shortness of breath, anxious, restless, received Risperdal and started on breathing treatment q.[address] Sorenson. REVIEW OF SYSTEMS: Ambulation impaired, in wheelchair. No CV, , pulmonary, eye system symptoms on review. MENTAL STATUS EXAMINATION: Oriented to himself and situation. Speech coherent, rapid, loud at times. Abstraction fair, computation impaired, language function intact, attention span short. Mood and affect remains labile. LABORATORY DATA: Reviewed. IMPRESSION: Unchanged from initial note. PLAN: No change from initial note. Adjust Depakote post labs. MAN Twin JEWELL MD DR: SHERLEY/vandana JOB#: [id number] / [id number]
--- NOTE | 2019-07-06 15:21 | NUR ---
Nursing note: Pt was in his room for morning meds and assessment. He was compliant with taking his meds crushed in applesauce and was cooperative with his assessment. Pt was yelling out and angry this morning. After some alone time in his room, he was able to calm down and has been pleasant since. He has spent most of the day in the day room working on his word searches. Will continue to monitor.
[2019-07-06 15:50] VITALS: BP 128/73
--- NOTE | 2019-07-06 17:43 | NUR ---
Held evening insulin d/t blood glucose level being 107.
[2019-07-06] MEDS: QUEtiapine 50 MG TABLET. PO SCH (19:57)
[2019-07-06] MEDS: POLYVINYL ALCOHOL/POVIDONE/PF OPHTH SOLUTION DROPERETTE. OU SCH (19:57)
[2019-07-06] MEDS: SIMVASTATIN 20 MG TABLET PO SCH (19:57)
[2019-07-06] MEDS: TERAZOSIN 5 MG CAPSULE. PO SCH (19:58)
--- NOTE | 2019-07-06 21:25 | PDOC ---
Exam Note: Devonte Note: Please also refer to the separate dictated note~for this date of service dictated separately.~Patient seen individually. Discussed the patient with Nursing staff reviewed the chart.~Reviewed interim history and current functioning. Reviewed vital signs,~Labs/ Radiology~and current medications noted below. Continue current treatment with the changes noted in the dictated addendum note Assessment: Vital Signs/I&O: Vital Signs Date Time Temp Pulse Resp B/P (MAP) Pulse Ox O2 Delivery O2 Flow Rate FiO2 07/06/19 20:42 98 Room Air 07/06/19 19:58 66 128/73 07/06/19 16:54 2.0 07/06/19 15:50 97.2 18 I & O 07/05/19 07/05/19 07/06/19 15:00 23:00 07:00 Intake Total 1080 ml 240 ml Balance 1080 ml 240 ml Labs: Laboratory Tests Test 07/06/19 07:22 07/06/19 11:45 07/06/19 17:25 07/06/19 19:21 Glucose (Fingerstick) 183 mg/dL (70-99) H 188 mg/dL (70-99) H 107 mg/dL (70-99) H 150 mg/dL (70-99) H Current Medications: Meds: Current Medications Medications (Trade) Dose Ordered Sig/Zeina Route PRN Reason Start Time Stop Time Status Last Admin Dose Admin Divalproex Sodium (Depakote Sprinkles) 500 mg BID PO 07/06/19 21:00 07/06/19 19:57 I have reviewed the current psychotropics carefully including drug interactions. Risk benefit ratio favors no change other than as noted in my dictated progress note. 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
--- NOTE | 2019-07-06 22:09 | NUR ---
Nursing Note: Pt laying in bed sleeping on assessment. Around 2100 pt woke up was pleasant and interactive with staff. Pt compliant with medications crushed in pudding. Pt denies any complaints, but requests that this nurse calls him Grisel because that is his nickname.
[2019-07-07] MEDS: IPRATRPIUM/ALBUTEROL 0.5/2.5MG 3 ML NEBU. NEB SCH ×6 (01:47→20:00)
[2019-07-07 05:23] VITALS: BP 100/52
[2019-07-07] MEDS: LEVOTHYROXINE 150 MCG TABLET PO SCH (05:39)
[2019-07-07] MEDS: INSULIN LISPRO 300 UNITS/3 ML VIAL. SQ SCH ×3 (07:30→16:30)
--- NOTE | 2019-07-07 08:49 | NUR ---
wound care patient seen per wound care follow up. see wound assessment. patient stage 3 pressure ulcer to the left hip is now resolved. patient has redness under the abdomen and in the intergluteal cleft which are resolving with nystatin powder under the abdomen and Calazime to the intergluteal cleft. patient needs to be turning every 2 hours while in bed. patients heels are no longer red. spoke with RN about the POC, wound care will sign off at this time, please reconsult if new wounds develop.
[2019-07-07] MEDS: DIVALPROEX 125 MG CAP.SPRINK PO SCH ×2 (09:26→20:54)
[2019-07-07] MEDS: NYSTATIN TOPICAL POWDER 15GM BOTTLE. TP SCH ×2 (09:26→20:55)
[2019-07-07] MEDS: metOLazone 5 MG TABLET PO SCH (09:27)
[2019-07-07] MEDS: MAGNESIUM OXIDE 400 MG TABLET PO SCH ×3 (09:27→20:54)
[2019-07-07] MEDS: FINASTERIDE 5 MG TABLET PO SCH (09:27)
[2019-07-07] MEDS: MULTIVITAMIN with MINERAL TABLET. PO SCH (09:27)
[2019-07-07] MEDS: CHOLECALCIFEROL (VITAMIN D3) 1,000 UNIT TABLET PO SCH (09:27)
[2019-07-07] MEDS: busPIRone 15 MG TABLET. PO SCH ×4 (09:27→20:55)
[2019-07-07] MEDS: QUEtiapine 25 MG TABLET. PO SCH ×2 (09:27→13:39)
[2019-07-07] MEDS: MEMANTINE 10 MG TABLET. PO SCH ×2 (09:27→20:54)
[2019-07-07] MEDS: FUROSEMIDE 40 MG TABLET PO SCH (09:28)
[2019-07-07] MEDS: ASCORBIC ACID 500 MG TABLET PO SCH ×2 (09:28→20:54)
[2019-07-07] MEDS: LISINOPRIL 10 MG TABLET PO SCH (09:28)
[2019-07-07] MEDS: METOPROLOL TART IMMED RELEASE 25 MG TABLET PO SCH ×2 (09:29→20:55)
[2019-07-07] MEDS: ASPIRIN ENTERIC COATED 325 MG TABLET.DR. PO SCH (09:30)
[2019-07-07] MEDS: POTASSIUM CHLORIDE 20 MEQ TABLET.ER. PO SCH (09:30)
[2019-07-07] MEDS: ALLOPURINOL 100 MG TABLET. PO SCH ×3 (09:30→20:54)
[2019-07-07] MEDS: SERTRALINE 100 MG TABLET. PO SCH (09:30)
[2019-07-07] MEDS: NICOTINE 14MG PATCH. TD SCH (09:31)
[2019-07-07] MEDS: INSULIN GLARGINE SYRINGE. SQ SCH ×2 (09:33→21:03)
[2019-07-07] MEDS: BUDESONIDE 0.5 MG/2 ML NEBU NEB SCH ×2 (09:58→20:00)
--- NOTE | 2019-07-07 15:30 | NUR ---
Nursing note: Pt in his room this morning for meds and assessment. He was angry this morning and yelling out, but was compliant with his meds crushed in applesauce and cooperative with his assessment. Pt has remained in his room for most of the day, but has spent a little bit of time out in the day room. He has been calm and pleasant this afternoon. Will continue to monitor.
[2019-07-07 16:06] VITALS: BP 115/53
[2019-07-07] MEDS: SIMVASTATIN 20 MG TABLET PO SCH (20:54)
[2019-07-07] MEDS: QUEtiapine 50 MG TABLET. PO SCH (20:54)
[2019-07-07] MEDS: POLYVINYL ALCOHOL/POVIDONE/PF OPHTH SOLUTION DROPERETTE. OU SCH (20:55)
[2019-07-07] MEDS: TERAZOSIN 5 MG CAPSULE. PO SCH (20:55)
--- NOTE | 2019-07-07 21:24 | PDOC ---
Exam Note: Devonte Note: Please also refer to the separate dictated note~for this date of service dictated separately.~Patient seen individually. Discussed the patient with Nursing staff reviewed the chart.~Reviewed interim history and current functioning. Reviewed vital signs,~Labs/ Radiology~and current medications noted below. Continue current treatment with the changes noted in the dictated addendum note Assessment: Vital Signs/I&O: Vital Signs Date Time Temp Pulse Resp B/P (MAP) Pulse Ox O2 Delivery O2 Flow Rate FiO2 07/07/19 20:55 98 115/53 07/07/19 20:23 95 Room Air 07/07/19 16:06 98.2 20 07/07/19 04:43 2.0 I & O 07/06/19 07/06/19 07/07/19 14:59 22:59 06:59 Intake Total 580 ml 600 ml Balance 580 ml 600 ml Labs: Laboratory Tests Test 07/07/19 07:51 07/07/19 12:06 07/07/19 17:12 07/07/19 19:09 Glucose (Fingerstick) 119 mg/dL (70-99) H 345 mg/dL (70-99) H 244 mg/dL (70-99) H 173 mg/dL (70-99) H Current Medications: I have reviewed the current psychotropics carefully including drug interactions. Risk benefit ratio favors no change other than as noted in my dictated progress note. 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
--- NOTE | 2019-07-08 02:10 | NUR ---
Nursing Note The patient was located in his room for his medication and assessment. The patient took his medication crushed in chocolate ice cream. The patient was pleasant and interactive with this nurse during interactions. the patient is currently sleeping in his room.
[2019-07-08] MEDS: IPRATRPIUM/ALBUTEROL 0.5/2.5MG 3 ML NEBU. NEB SCH ×6 (04:00→19:59)
[2019-07-08 05:44] VITALS: BP 153/67
[2019-07-08] MEDS: LEVOTHYROXINE 150 MCG TABLET PO SCH (06:37)
[2019-07-08] MEDS: INSULIN LISPRO 300 UNITS/3 ML VIAL. SQ SCH ×3 (07:30→17:51)
[2019-07-08] MEDS: MULTIVITAMIN with MINERAL TABLET. PO SCH (08:35)
[2019-07-08] MEDS: DIVALPROEX 125 MG CAP.SPRINK PO SCH ×2 (08:35→21:06)
[2019-07-08] MEDS: NYSTATIN TOPICAL POWDER 15GM BOTTLE. TP SCH ×2 (08:35→21:00)
[2019-07-08] MEDS: SERTRALINE 100 MG TABLET. PO SCH (08:35)
[2019-07-08] MEDS: ASPIRIN ENTERIC COATED 325 MG TABLET.DR. PO SCH (08:35)
[2019-07-08] MEDS: FINASTERIDE 5 MG TABLET PO SCH (08:35)
[2019-07-08] MEDS: FUROSEMIDE 40 MG TABLET PO SCH (08:36)
[2019-07-08] MEDS: LISINOPRIL 10 MG TABLET PO SCH (08:36)
[2019-07-08] MEDS: busPIRone 15 MG TABLET. PO SCH ×4 (08:36→21:09)
[2019-07-08] MEDS: MAGNESIUM OXIDE 400 MG TABLET PO SCH ×3 (08:36→21:09)
[2019-07-08] MEDS: QUEtiapine 25 MG TABLET. PO SCH ×2 (08:36→13:36)
[2019-07-08] MEDS: ASCORBIC ACID 500 MG TABLET PO SCH ×2 (08:37→21:06)
[2019-07-08] MEDS: ALLOPURINOL 100 MG TABLET. PO SCH ×3 (08:37→21:09)
[2019-07-08] MEDS: CHOLECALCIFEROL (VITAMIN D3) 1,000 UNIT TABLET PO SCH (08:37)
[2019-07-08] MEDS: POTASSIUM CHLORIDE 20 MEQ TABLET.ER. PO SCH (08:37)
[2019-07-08] MEDS: METOPROLOL TART IMMED RELEASE 25 MG TABLET PO SCH ×2 (08:37→21:00)
[2019-07-08] MEDS: NICOTINE 14MG PATCH. TD SCH ×2 (08:37→09:00)
[2019-07-08] MEDS: MEMANTINE 10 MG TABLET. PO SCH ×2 (08:37→21:09)
[2019-07-08] MEDS: INSULIN GLARGINE SYRINGE. SQ SCH ×2 (08:39→21:11)
[2019-07-08] MEDS ORDERED: metOLazone 5 MG TABLET PO SCH (09:00)
[2019-07-08] MEDS: BUDESONIDE 0.5 MG/2 ML NEBU NEB SCH ×2 (09:29→19:59)
--- NOTE | 2019-07-08 15:36 | NUR ---
Patient was calm and compliant during meals, then afterwards he became loud, demanding, and was yelling in his room. He was upset that no one helped him into bed after meals, that he 'couldn't do my puzzlebooks', and that no one gave him a newspaper; when staff approached him, he was sarcastic and demanding. Patient did transfer himself into bed in the morning after breakfast. Will continue to monitor and report to oncoming shift.
[2019-07-08 15:46] VITALS: BP 133/52
--- NOTE | 2019-07-08 18:23 | PN ---
DATE: 07/06/2019 PSYCHIATRIC PROGRESS NOTE This late entry 07/06/2019 covers elements not covered in my initial note. SUBJECTIVE: I met with the patient in the evening. The patient slept 8-1/2 hours previous night. He enjoys coloring in a coloring book and seems distracted and less anxious, agitated once he is doing this. At other times, he has been extremely agitated, threatened to "blow this place up". He has had some shortness of breath. On further review slept 7 hours previous night. Per TRACI Nielsne more calm, cooperative, compliant at times, yelling at times in the morning, irritable, angry. Valproic acid level on the was 34 on Depakote 250 b.i.d. We will increase to 500 b.i.d. Check CBC, CMP, valproic acid level in 3 days. REVIEW OF SYSTEMS: Ambulation impaired, in wheelchair. No CV, , pulmonary, eye system symptoms on review. Reliability varies. MENTAL STATUS EXAM: Oriented to himself and situation. Speech coherent, can be pressured at times, repetitive, loud, especially if he is not put to bed when he wants to be put to bed. Abstraction fair, computation impaired, language function intact, attention span short. Mood and affect labile. LABORATORY DATA: Reviewed. IMPRESSION: Bipolar 1 disorder, mixed with psychotic features, mild cognitive impairment. Rest unchanged; impulse control disorder; anxiety disorder, unspecified. PLAN: Increase Depakote to 500 mg b.i.d. Check labs level in 3 days. Rest unchanged for now. I have carefully reviewed other treatment options, but for now, I think we need to persist with Depakote, get it therapeutic, see how he does and then decide thereafter. MAN Twin JEWELL MD DR: SHERLEY/vandana JOB#: [id number] / [id number]
--- NOTE | 2019-07-08 18:25 | PN ---
DATE: 07/07/2019 PSYCHIATRIC PROGRESS NOTE This late entry 07/07/2019 covers elements not covered in my initial note. SUBJECTIVE: I met with the patient in the evening. The patient slept 8-1/2 hours previous night. He has been irritable, takes medications crushed, does better when he is given a coloring book to draw and less agitated at that time as compared to others. REVIEW OF SYSTEMS: Ambulation impaired, in wheelchair. No CV, , pulmonary, eye system symptoms on review. MENTAL STATUS EXAM: Oriented to himself and situation. Has some latency, coherent, rapid, loud at times. Abstraction fair, computation impaired, language function intact, attention span short. Mood and affect remain somewhat labile. LABORATORY DATA: Reviewed. IMPRESSION: Unchanged from initial note. PLAN: No change from initial note. MAN Twin JEWELL MD DR: SHERLEY/vandana JOB#: [id number] / [id number]
[2019-07-08] MEDS: TERAZOSIN 5 MG CAPSULE. PO SCH (21:00)
[2019-07-08] MEDS: POLYVINYL ALCOHOL/POVIDONE/PF OPHTH SOLUTION DROPERETTE. OU SCH (21:06)
[2019-07-08] MEDS: SIMVASTATIN 20 MG TABLET PO SCH (21:06)
[2019-07-08] MEDS: QUEtiapine 50 MG TABLET. PO SCH (21:09)
--- NOTE | 2019-07-08 21:43 | PDOC ---
Exam Note: Devonte Note: Please also refer to the separate dictated note~for this date of service dictated separately.~Patient seen individually. Discussed the patient with Nursing staff reviewed the chart.~Reviewed interim history and current functioning. Reviewed vital signs,~Labs/ Radiology~and current medications noted below. Continue current treatment with the changes noted in the dictated addendum note Assessment: Vital Signs/I&O: Vital Signs Date Time Temp Pulse Resp B/P (MAP) Pulse Ox O2 Delivery O2 Flow Rate FiO2 07/08/19 21:00 63 133/52 07/08/19 20:07 95 Nasal Cannula 2.0 07/08/19 15:46 98.2 16 I & O 0 07/07/19 07/07/19 07/08/19 14:59 22:59 06:59 Intake Total 960 ml 100 ml Balance 960 ml 100 ml Labs: Laboratory Tests Test 07/08/19 07:40 07/08/19 11:56 07/08/19 17:02 07/08/19 19:00 Glucose (Fingerstick) 72 mg/dL (70-99) 228 mg/dL (70-99) H 209 mg/dL (70-99) H 238 mg/dL (70-99) H Current Medications: Meds: Current Medications Medications (Trade) Dose Ordered Sig/Zeina Route PRN Reason Start Time Stop Time Status Last Admin Dose Admin Metolazone (Zaroxolyn) 5 mg QWE@0900 PO 07/08/19 09:00 07/08/19 08:35 I have reviewed the current psychotropics carefully including drug interactions. Risk benefit ratio favors no change other than as noted in my dictated progress note. 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
--- NOTE | 2019-07-08 23:41 | NUR ---
Nsg Note: Patient was in room at time of medication administration and assessments. Patient was pretty lethargic and drowsy, patient eventually took medications crushed in pudding and was compliant and cooperative with eyes closed. Patient was somewhat agitated and yelling. PRN given to help sleep and not be agitated with HS meds. Went back to sleep afterwards. No other notable behaviors at this time.
[2019-07-09] MEDS: IPRATRPIUM/ALBUTEROL 0.5/2.5MG 3 ML NEBU. NEB SCH ×6 (04:58→21:14)
[2019-07-09 05:14] VITALS: BP 130/67
[2019-07-09] MEDS: LEVOTHYROXINE 150 MCG TABLET PO SCH (06:08)
[2019-07-09 07:40] LABS: HEMATOCRIT 39.2 % (39.0-53.0); HEMOGLOBIN 12.3 g/dL (13.0-17.5); RED BLOOD COUNT 4.07 x10^6/uL (4.30-5.70); WHITE BLOOD COUNT 14.2 x10^3/uL (4.0-11.0)
[2019-07-09 07:49] LABS: ALBUMIN/GLOBULIN RATIO 0.7 (1.0-1.7); CALCIUM 8.8 mg/dL (8.5-10.1); CREATININE 1.4 mg/dL (0.7-1.3); GFR 48.1; POTASSIUM 4.4 mmol/L (3.5-5.1); TOTAL BILIRUBIN 0.3 mg/dL (0.2-1.0); TOTAL PROTEIN 7.5 g/dL (6.4-8.2)
--- NOTE | 2019-07-09 08:40 | NUR ---
Patient blood glucose level was 53mg/dl by fingerstick @0700. BP 133/67, RR20, MN 78. Speech clear, no diaphoresis noted, denies headache. Gave patient his breakfast tray, ate full meal, blood glucose level is now 105 mg/dl by fingerstick
[2019-07-09] MEDS: NYSTATIN TOPICAL POWDER 15GM BOTTLE. TP SCH ×2 (08:47→21:00)
[2019-07-09] MEDS: CHOLECALCIFEROL (VITAMIN D3) 1,000 UNIT TABLET PO SCH (08:48)
[2019-07-09] MEDS: NICOTINE 14MG PATCH. TD SCH (08:48)
[2019-07-09] MEDS: metOLazone 5 MG TABLET PO SCH (08:48)
[2019-07-09] MEDS: DIVALPROEX 125 MG CAP.SPRINK PO SCH ×2 (08:48→20:07)
[2019-07-09] MEDS: busPIRone 15 MG TABLET. PO SCH ×4 (08:48→20:07)
[2019-07-09] MEDS: ALLOPURINOL 100 MG TABLET. PO SCH ×3 (08:48→20:07)
[2019-07-09] MEDS: FINASTERIDE 5 MG TABLET PO SCH (08:49)
[2019-07-09] MEDS: ASPIRIN ENTERIC COATED 325 MG TABLET.DR. PO SCH (08:49)
[2019-07-09] MEDS: SERTRALINE 100 MG TABLET. PO SCH (08:49)
[2019-07-09] MEDS: LISINOPRIL 10 MG TABLET PO SCH (08:49)
[2019-07-09] MEDS: ASCORBIC ACID 500 MG TABLET PO SCH ×2 (08:49→20:06)
[2019-07-09] MEDS: FUROSEMIDE 40 MG TABLET PO SCH (08:50)
[2019-07-09] MEDS: METOPROLOL TART IMMED RELEASE 25 MG TABLET PO SCH ×2 (08:50→20:07)
[2019-07-09] MEDS: MAGNESIUM OXIDE 400 MG TABLET PO SCH ×3 (08:51→20:07)
[2019-07-09] MEDS: QUEtiapine 25 MG TABLET. PO SCH ×2 (08:51→13:37)
[2019-07-09] MEDS: POTASSIUM CHLORIDE 20 MEQ TABLET.ER. PO SCH (08:51)
[2019-07-09] MEDS: MEMANTINE 10 MG TABLET. PO SCH ×2 (08:51→20:07)
[2019-07-09] MEDS: MULTIVITAMIN with MINERAL TABLET. PO SCH (08:51)
[2019-07-09] MEDS: BUDESONIDE 0.5 MG/2 ML NEBU NEB SCH ×2 (08:52→21:14)
[2019-07-09] MEDS: INSULIN LISPRO 300 UNITS/3 ML VIAL. SQ SCH ×3 (08:53→17:31)
[2019-07-09] MEDS: INSULIN GLARGINE SYRINGE. SQ SCH ×2 (08:54→21:02)
--- NOTE | 2019-07-09 12:55 | NUR ---
Nursing note: Pt was in his room, compliant with taking his medications crushed in chocolate ice cream and was cooperative with his assessment. Pt was yelling out and angry this morning, became agitated when redirected. PRN given per eMar with scheduled AM medications. Calmed down on his own when taken to the day room. He has spent most of the day in the day room working on his word searches. Will continue to monitor.
[2019-07-09 15:40] VITALS: BP 136/71
[2019-07-09 17:52] LABS: BACTERIA,URINE FEW /HPF (0-FEW); BILIRUBIN,URINE NEG (NEG); CLARITY,URINE HAZY; COLOR,URINE YELLOW; GLUCOSE,URINE NEG (NEG); NITRITE,URINE NEG (NEG); SQUAMOUS EPITHELIAL CELL,UR OCC /LPF; UROBILINOGEN,URINE 0.2 mg/dL (0.2 mg/dL); WBC,URINE TNTC /HPF (0-4)
[2019-07-09] MEDS: SIMVASTATIN 20 MG TABLET PO SCH (20:06)
[2019-07-09] MEDS: TERAZOSIN 5 MG CAPSULE. PO SCH (20:06)
[2019-07-09] MEDS: QUEtiapine 50 MG TABLET. PO SCH (20:07)
[2019-07-09] MEDS: POLYVINYL ALCOHOL/POVIDONE/PF OPHTH SOLUTION DROPERETTE. OU SCH (20:09)
--- NOTE | 2019-07-09 20:57 | PDOC ---
Exam Note: Devonte Note: Please also refer to the separate dictated note~for this date of service dictated separately.~Patient seen individually. Discussed the patient with Nursing staff reviewed the chart.~Reviewed interim history and current functioning. Reviewed vital signs,~Labs/ Radiology~and current medications noted below. Continue current treatment with the changes noted in the dictated addendum note Assessment: Vital Signs/I&O: Vital Signs Date Time Temp Pulse Resp B/P (MAP) Pulse Ox O2 Delivery O2 Flow Rate FiO2 07/09/19 20:07 100 136/71 07/09/19 16:24 Nasal Cannula 2.0 07/09/19 15:40 98.3 20 94 I & O 07/08/19 07/08/19 07/09/19 15:00 23:00 07:00 Intake Total 720 ml Balance 720 ml Labs: Laboratory Tests Test 07/09/19 07:05 07/09/19 07:26 07/09/19 07:54 07/09/19 11:49 White Blood Count 14.2 x10^3/uL (4.0-11.0) H Red Blood Count 4.07 x10^6/uL (4.30-5.70) L Hemoglobin 12.3 g/dL (13.0-17.5) L Hematocrit 39.2 % (39.0-53.0) Mean Corpuscular Volume 96 fL (79-100) Mean Corpuscular Hemoglobin 30 pg (25-35) Mean Corpuscular Hemoglobin Concent 31 g/dL (31-37) Red Cell Distribution Width 15.0 % (11.5-14.5) H Platelet Count 272 x10^3/uL (140-400) Sodium Level 139 mmol/L (136-145) Potassium Level 4.4 mmol/L (3.5-5.1) Chloride Level 100 mmol/L (98-107) Carbon Dioxide Level 31 mmol/L (21-32) Anion Gap 8 (6-14) Blood Urea Nitrogen 41 mg/dL (8-26) H Creatinine 1.4 mg/dL (0.7-1.3) H Estimated GFR (Cockcroft-Gault) 48.1 BUN/Creatinine Ratio 29 (6-20) H Glucose Level 59 mg/dL (70-99) L Calcium Level 8.8 mg/dL (8.5-10.1) Total Bilirubin 0.3 mg/dL (0.2-1.0) Aspartate Amino Transferase (AST) 18 U/L (15-37) Alanine Aminotransferase (ALT) 23 U/L (16-63) Alkaline Phosphatase 93 U/L (46-116) Total Protein 7.5 g/dL (6.4-8.2) Albumin 3.0 g/dL (3.4-5.0) L Albumin/Globulin Ratio 0.7 (1.0-1.7) L Glucose (Fingerstick) 53 mg/dL (70-99) L 105 mg/dL (70-99) H 233 mg/dL (70-99) H Test 07/09/19 16:59 07/09/19 17:15 07/09/19 20:04 Glucose (Fingerstick) 172 mg/dL (70-99) H 208 mg/dL (70-99) H Urine Collection Type Unknown Urine Color Yellow Urine Clarity Hazy Urine pH 6.0 Urine Specific [place] 1.015 Urine Protein Neg (NEG-TRACE) Urine Glucose (UA) Neg mg/dL (NEG) Urine Ketones (Stick) Neg mg/dL (NEG) Urine Blood Large (NEG) Urine Nitrite Neg (NEG) Urine Bilirubin Neg (NEG) Urine Urobilinogen Dipstick 0.2 mg/dL (0.2 mg/dL) Urine Leukocyte Esterase Large (NEG) Urine RBC 3-5 /HPF (0-2) Urine WBC Tntc /HPF (0-4) Urine Squamous Epithelial Cells Occ /LPF Urine Bacteria Few /HPF (0-FEW) Current Medications: I have reviewed the current psychotropics carefully including drug interactions. Risk benefit ratio favors no change other than as noted in my dictated progress note. 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
[2019-07-10] MEDS: IPRATRPIUM/ALBUTEROL 0.5/2.5MG 3 ML NEBU. NEB SCH ×6 (00:28→20:00)
--- NOTE | 2019-07-10 02:03 | NUR ---
Nsg Note: Patient was in his room at time of medication administration and assessments. Patient was in W/C and very agitated yelling and screaming because he wanted to go to bed. Patient took medications crushed in pudding. HRIS SPECIALIST helped to get patient into bed. Patient was calm once back in bed. PRN was also administered with HS medications to help calm patient down. Patient went to sleep shortly afterwards. No other notable behaviors at this time.
[2019-07-10 05:03] VITALS: BP 102/55
[2019-07-10] MEDS: LEVOTHYROXINE 150 MCG TABLET PO SCH (05:27)
[2019-07-10] MEDS: INSULIN LISPRO 300 UNITS/3 ML VIAL. SQ SCH ×3 (07:30→17:34)
[2019-07-10] MEDS: METOPROLOL TART IMMED RELEASE 25 MG TABLET PO SCH ×2 (08:14→20:57)
[2019-07-10] MEDS: DIVALPROEX 125 MG CAP.SPRINK PO SCH ×2 (08:14→20:56)
[2019-07-10] MEDS: metOLazone 5 MG TABLET PO SCH (08:14)
[2019-07-10] MEDS: MEMANTINE 10 MG TABLET. PO SCH ×2 (08:15→20:56)
[2019-07-10] MEDS: FINASTERIDE 5 MG TABLET PO SCH (08:15)
[2019-07-10] MEDS: MAGNESIUM OXIDE 400 MG TABLET PO SCH ×3 (08:15→20:56)
[2019-07-10] MEDS: ASPIRIN ENTERIC COATED 325 MG TABLET.DR. PO SCH (08:15)
[2019-07-10] MEDS: MULTIVITAMIN with MINERAL TABLET. PO SCH (08:15)
[2019-07-10] MEDS: FUROSEMIDE 40 MG TABLET PO SCH (08:15)
[2019-07-10] MEDS: busPIRone 15 MG TABLET. PO SCH ×4 (08:15→20:56)
[2019-07-10] MEDS: POTASSIUM CHLORIDE 20 MEQ TABLET.ER. PO SCH (08:15)
[2019-07-10] MEDS: ALLOPURINOL 100 MG TABLET. PO SCH ×3 (08:16→20:56)
[2019-07-10] MEDS: QUEtiapine 25 MG TABLET. PO SCH ×2 (08:16→12:42)
[2019-07-10] MEDS: ASCORBIC ACID 500 MG TABLET PO SCH ×2 (08:16→20:56)
[2019-07-10] MEDS: SERTRALINE 100 MG TABLET. PO SCH (08:16)
[2019-07-10] MEDS: CHOLECALCIFEROL (VITAMIN D3) 1,000 UNIT TABLET PO SCH (08:16)
[2019-07-10] MEDS: LISINOPRIL 10 MG TABLET PO SCH (08:16)
[2019-07-10] MEDS: NICOTINE 14MG PATCH. TD SCH (08:17)
[2019-07-10] MEDS: NYSTATIN TOPICAL POWDER 15GM BOTTLE. TP SCH ×2 (08:17→21:00)
[2019-07-10 08:43] LABS: BASO % 0 % (0-3); EOS # 0.1 x10^3/uL (0.0-0.7); EOS % 1 % (0-3); HEMOGLOBIN 11.9 g/dL (13.0-17.5); LYMPH # 1.8 x10^3/uL (1.0-4.8); LYMPH % 12 % (24-48); MEAN CORPUSCULAR HEMOGLOBIN 30 pg (25-35); MEAN CORPUSCULAR HGB CONC 32 g/dL (31-37); MEAN CORPUSCULAR VOLUME 95 fL (79-100); MONO # 0.9 x10^3/uL (0.0-1.1); MONO % 6 % (0-9); NEUT # 11.8 x10^3uL (1.8-7.7); NEUT % 81 % (31-73); PLATELET COUNT 276 x10^3/uL (140-400); RED BLOOD COUNT 3.92 x10^6/uL (4.30-5.70); RED CELL DISTRIBUTION WIDTH 14.7 % (11.5-14.5); WHITE BLOOD COUNT 14.6 x10^3/uL (4.0-11.0)
[2019-07-10 08:49] LABS: ALBUMIN/GLOBULIN RATIO 0.7 (1.0-1.7); ALK PHOS 90 U/L (46-116); ALT (SGPT) 21 U/L (16-63); ANION GAP 7 (6-14); AST (SGOT) 19 U/L (15-37); BLOOD UREA NITROGEN 46 mg/dL (8-26); BUN/CREATININE RATIO 29 (6-20); CALCIUM 9.5 mg/dL (8.5-10.1); CARBON DIOXIDE 30 mmol/L (21-32); CHLORIDE 100 mmol/L (98-107); CREATININE 1.6 mg/dL (0.7-1.3); GFR 41.2; GLUCOSE 118 mg/dL (70-99); SODIUM 137 mmol/L (136-145); TOTAL BILIRUBIN 0.4 mg/dL (0.2-1.0); TOTAL PROTEIN 7.5 g/dL (6.4-8.2)
[2019-07-10 08:51] LABS: VAL ACID 50 mcg/mL (50-100)
[2019-07-10] MEDS: INSULIN GLARGINE SYRINGE. SQ SCH ×2 (09:00→20:56)
[2019-07-10] MEDS: BUDESONIDE 0.5 MG/2 ML NEBU NEB SCH ×2 (10:52→20:00)
--- NOTE | 2019-07-10 12:26 | PN ---
DATE: 07/09/2019 PSYCHIATRIC PROGRESS NOTE This late entry 07/09/2019 covers elements not covered in my initial note. SUBJECTIVE: I met with the patient in the evening of 07/09/2019 in his room. The patient slept 9 hours previous night. He has been irritable, demanding to get back to bed, putting himself on the floor and laughing when nursing staff tried to assist him. UA has been done, rule out urinary tract infection. WBC elevated. Dr. Sorenson is aware of this. He is obsessed about wanting to be in bed. REVIEW OF SYSTEMS: Ambulation impaired, in wheelchair. Vague somatic symptoms. No CV, , pulmonary, eye system symptoms on review. MENTAL STATUS EXAM: Oriented to himself and situation. Speech is coherent, can be rapid, loud at times. Abstraction fair, computation impaired, language function intact, attention span short. Mood and affect remains somewhat labile. LABORATORY DATA: Reviewed. IMPRESSION: Unchanged from initial note. PLAN: No change from initial note. Maintain BuSpar, Namenda, Seroquel, Zoloft, Depakote, which is being adjusted, last level was 34. Repeat labs level on 07/10/2019. MAN Twin JEWELL MD DR: SHERLEY/vandana JOB#: [id number] / [id number]
--- NOTE | 2019-07-10 12:28 | PN ---
DATE: 07/08/2019 PSYCHIATRIC PROGRESS NOTE This late entry 07/08/2019 covers elements not covered in my initial note. SUBJECTIVE: I met with the patient in the evening of 07/08/2019. The patient slept 8 hours previous night. He continues to wants to be back in bed and if he has not taken there by the nursing staff, he becomes loud, disruptive, volatile, threatening. He feels "there is nothing right here." He has had some shortness of breath, impaired ambulation in wheelchair. REVIEW OF SYSTEMS: No CV, GI, system symptoms on review. Reliability poor. He was quite obsessive, anxious, repetitive, screaming at times. MENTAL STATUS EXAM: Oriented to himself and situation. Speech coherent, rapid at times, loud. Abstraction fair, computation impaired, language function intact, attention span short. Mood and affect somewhat labile, anxious. LABORATORY DATA: Reviewed. IMPRESSION: Unchanged from initial note. PLAN: No change from initial note. BIPIN JEWELL MD DR: SHERLEY/vandana JOB#: [id number] / [id number]
--- NOTE | 2019-07-10 13:45 | NUR ---
NICOLLE left a message with Radha at [facility] about pt discharge being slotted for the end of next week. Pt medications are continuing to be changed as he is still exhibiting some aggressive behaviors both physically and verbally. NICOLLE will also plan to fax over information for the facility to review.
--- NOTE | 2019-07-10 14:04 | NUR ---
WEEKLY ACTIVITY THERAPY NOTE Date of Admission: 06/29/2019 Date of AT Assessment: 07/02/2019 Goal aimed: to increase engagement Initial Goal: Pt. will participate in three Activity Therapy groups or individual sessions per week. Weekly progress towards goal: 1/3 Group participation level: moderate in one individual session Weekly highlights: talking about different fish on a DVD with staff on 07/03 Behaviors observed: yelling out, demanding at times, sleeps often, not around group much Plan: no change to goal Beneficial adaptations: likes word search/ newspaper
--- NOTE | 2019-07-10 15:05 | RAD ---
PORTABLE CHEST 1V 07/10/2019 1:43 PM INDICATION: Lung congestion, elevated white blood cell count COMPARISON: 07/04/2019 TECHNIQUE: Portable frontal view of the chest is provided. FINDINGS: The cardiomediastinal silhouette is similar in appearance. Respiratory motion limits evaluation. There may be a small left pleural effusion with adjacent compressive atelectasis. Rounded opacity is noted at the left lung base. Mild pulmonary vascular congestion. No definite pneumothorax. Degenerative changes of the glenohumeral joints appear stable. IMPRESSION: 1. Evaluation is limited by respiratory motion. 2. Increase in small to moderate left pleural effusion with adjacent compressive atelectasis. Nodular consolidative changes noted at the left lung base. Short-term follow-up two-view radiograph may be of benefit to assess resolution. 3. Mild pulmonary vascular congestion. Electronically signed by: Angeles Be MD (07/10/2019 3:02 PM) [id number]
--- NOTE | 2019-07-10 15:27 | NUR ---
Pt has been compliant with crushed medications. Pt has had episodes of yelling and demanding to be put to bed. Labs done; pt noted to have elevated WBC. Pt has coarse lung sounds. CXR ordered. Will discuss with Dr. Sorenson on rounds today. Addendum: 07/10/19 at 1819 by BOB RUIZ RN Discussed with Dr. Sorenson pt's labs and CXR result. New orders placed to reduce Metolazone dose. If pt becomes febrile or SOA, notify Dr. Sorenson.
[2019-07-10 15:41] VITALS: BP 156/81
[2019-07-10] MEDS: TERAZOSIN 5 MG CAPSULE. PO SCH (20:56)
[2019-07-10] MEDS: SIMVASTATIN 20 MG TABLET PO SCH (20:56)
[2019-07-10] MEDS: QUEtiapine 50 MG TABLET. PO SCH (20:56)
[2019-07-10] MEDS: POLYVINYL ALCOHOL/POVIDONE/PF OPHTH SOLUTION DROPERETTE. OU SCH (20:59)
--- NOTE | 2019-07-10 21:17 | PDOC ---
Exam Note: Devonte Note: Please also refer to the separate dictated note~for this date of service dictated separately.~Patient seen individually. Discussed the patient with Nursing staff reviewed the chart.~Reviewed interim history and current functioning. Reviewed vital signs,~Labs/ Radiology~and current medications noted below. Continue current treatment with the changes noted in the dictated addendum note Assessment: Vital Signs/I&O: Vital Signs Date Time Temp Pulse Resp B/P (MAP) Pulse Ox O2 Delivery O2 Flow Rate FiO2 07/10/19 20:57 88 156/81 07/10/19 16:29 Room Air 07/10/19 15:41 98.6 18 94 07/10/19 04:33 2.0 I & O 07/09/19 07/09/19 07/10/19 15:00 23:00 07:00 Intake Total 960 ml 240 ml Balance 960 ml 240 ml Labs: Laboratory Tests Test 07/10/19 07:20 07/10/19 08:03 07/10/19 11:34 07/10/19 16:40 Glucose (Fingerstick) 121 mg/dL (70-99) H 159 mg/dL (70-99) H 137 mg/dL (70-99) H White Blood Count 14.6 x10^3/uL (4.0-11.0) H Red Blood Count 3.92 x10^6/uL (4.30-5.70) L Hemoglobin 11.9 g/dL (13.0-17.5) L Hematocrit 37.0 % (39.0-53.0) L Mean Corpuscular Volume 95 fL (79-100) Mean Corpuscular Hemoglobin 30 pg (25-35) Mean Corpuscular Hemoglobin Concent 32 g/dL (31-37) Red Cell Distribution Width 14.7 % (11.5-14.5) H Platelet Count 276 x10^3/uL (140-400) Neutrophils (%) (Auto) 81 % (31-73) H Lymphocytes (%) (Auto) 12 % (24-48) L Monocytes (%) (Auto) 6 % (0-9) Eosinophils (%) (Auto) 1 % (0-3) Basophils (%) (Auto) 0 % (0-3) Neutrophils # (Auto) 11.8 x10^3uL (1.8-7.7) H Lymphocytes # (Auto) 1.8 x10^3/uL (1.0-4.8) Monocytes # (Auto) 0.9 x10^3/uL (0.0-1.1) Eosinophils # (Auto) 0.1 x10^3/uL (0.0-0.7) Basophils # (Auto) 0.0 x10^3/uL (0.0-0.2) Sodium Level 137 mmol/L (136-145) Potassium Level 5.0 mmol/L (3.5-5.1) Chloride Level 100 mmol/L (98-107) Carbon Dioxide Level 30 mmol/L (21-32) Anion Gap 7 (6-14) Blood Urea Nitrogen 46 mg/dL (8-26) H Creatinine 1.6 mg/dL (0.7-1.3) H Estimated GFR (Cockcroft-Gault) 41.2 BUN/Creatinine Ratio 29 (6-20) H Glucose Level 118 mg/dL (70-99) H Calcium Level 9.5 mg/dL (8.5-10.1) Total Bilirubin 0.4 mg/dL (0.2-1.0) Aspartate Amino Transferase (AST) 19 U/L (15-37) Alanine Aminotransferase (ALT) 21 U/L (16-63) Alkaline Phosphatase 90 U/L (46-116) Total Protein 7.5 g/dL (6.4-8.2) Albumin 3.0 g/dL (3.4-5.0) L Albumin/Globulin Ratio 0.7 (1.0-1.7) L Valproic Acid Level 50 mcg/mL (50-100) Valproic Acid Last Dose Date 07/09/19 Valproic Acid Last Dose Time 2100 Test 07/10/19 19:19 Glucose (Fingerstick) 185 mg/dL (70-99) H Current Medications: Meds: Current Medications Medications (Trade) Dose Ordered Sig/Zeina Route PRN Reason Start Time Stop Time Status Last Admin Dose Admin Quetiapine Fumarate (SEROquel) 25 mg DAILY@1400 PO 07/10/19 14:00 07/10/19 12:42 Quetiapine Fumarate (SEROquel) 50 mg BID PO 07/10/19 21:00 07/10/19 20:56 I have reviewed the current psychotropics carefully including drug interactions. Risk benefit ratio favors no change other than as noted in my dictated progress note. 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
--- NOTE | 2019-07-10 23:40 | NUR ---
Nursing Note: Pt laying half out of bed when RT came around to do evening treatment. Pt assisted to wheelchair, pt resistive with staff. Pt continually yelling out that we are to cheap to heat this place. Staff offered pt a blanket, pt refused. Pt is belligerent and demanding with staff. Pt resistive with cares and continue to yell at staff. Pt compliant with medications crushed in ice cream. Pt in bed sleeping at this time.
[2019-07-11] MEDS: IPRATRPIUM/ALBUTEROL 0.5/2.5MG 3 ML NEBU. NEB SCH ×6 (04:00→20:43)
[2019-07-11 05:44] VITALS: BP 120/57
[2019-07-11] MEDS: LEVOTHYROXINE 150 MCG TABLET PO SCH (06:00)
[2019-07-11] MEDS: DIVALPROEX 125 MG CAP.SPRINK PO SCH ×2 (08:09→20:09)
[2019-07-11] MEDS: FINASTERIDE 5 MG TABLET PO SCH (08:09)
[2019-07-11] MEDS: FUROSEMIDE 40 MG TABLET PO SCH (08:09)
[2019-07-11] MEDS: NICOTINE 14MG PATCH. TD SCH (08:09)
[2019-07-11] MEDS: MAGNESIUM OXIDE 400 MG TABLET PO SCH ×3 (08:10→20:09)
[2019-07-11] MEDS: ASPIRIN ENTERIC COATED 325 MG TABLET.DR. PO SCH (08:10)
[2019-07-11] MEDS: MULTIVITAMIN with MINERAL TABLET. PO SCH (08:10)
[2019-07-11] MEDS: busPIRone 15 MG TABLET. PO SCH ×4 (08:10→20:09)
[2019-07-11] MEDS: POTASSIUM CHLORIDE 20 MEQ TABLET.ER. PO SCH (08:10)
[2019-07-11] MEDS: MEMANTINE 10 MG TABLET. PO SCH ×2 (08:10→20:07)
[2019-07-11] MEDS: SERTRALINE 100 MG TABLET. PO SCH (08:10)
[2019-07-11] MEDS: ASCORBIC ACID 500 MG TABLET PO SCH ×2 (08:10→20:09)
[2019-07-11] MEDS: CHOLECALCIFEROL (VITAMIN D3) 1,000 UNIT TABLET PO SCH (08:10)
[2019-07-11] MEDS: QUEtiapine 50 MG TABLET. PO SCH ×2 (08:10→20:09)
[2019-07-11 08:17] VITALS: BP 137/67
[2019-07-11] MEDS: ALLOPURINOL 100 MG TABLET. PO SCH ×3 (08:18→20:09)
[2019-07-11] MEDS: BUDESONIDE 0.5 MG/2 ML NEBU NEB SCH ×2 (08:20→20:43)
[2019-07-11] MEDS: METOPROLOL TART IMMED RELEASE 25 MG TABLET PO SCH ×2 (08:20→20:08)
[2019-07-11] MEDS: LISINOPRIL 10 MG TABLET PO SCH (08:21)
[2019-07-11] MEDS: NYSTATIN TOPICAL POWDER 15GM BOTTLE. TP SCH ×2 (08:22→20:09)
[2019-07-11] MEDS: INSULIN LISPRO 300 UNITS/3 ML VIAL. SQ SCH ×3 (09:13→17:22)
[2019-07-11] MEDS: INSULIN GLARGINE SYRINGE. SQ SCH ×2 (09:14→20:10)
--- NOTE | 2019-07-11 10:19 | NUR ---
Nursing Note Patient has been compliant with medications crushed in pudding. Patient is irritable, sarcastic, demanding to be put to bed, and yells when being approached, states that "people here are too cheap to heat this place, I can't go to bed! nothing to drink, no snacks, nothing to do! nothing! I need to go home!" Patient offered a blanket, snacks, and a cup of drink but pt refused. No fever, denies SOB. Will continue to monitor.
[2019-07-11 11:40] VITALS: BP 134/74
--- NOTE | 2019-07-11 11:55 | NUR ---
Patient continues to yell, agitated and demanding to leave. Patient difficult to re-direct. PRN given per eMar.
--- NOTE | 2019-07-11 12:21 | PN ---
DATE: 07/11/2019 SUBJECTIVE: The patient was seen today, met with the staff, chart reviewed and also covering for Dr. Vick. Staff reports increased behavior problems, more childish behaviors, loud, constantly complaining about food and also poor eye contact and has difficulty interacting with the staff and residents. The patient is also on wheelchair. The patient does not verbalize his needs except for needing food. OBSERVATION: VITAL SIGNS: Temperature 98.0, blood pressure 120/57, pulse 101, respirations 22, O2 sat 98%. GENERAL: Slept about 7 hours last night. The patient's appetite increased. MEDICATIONS: The patient's current medications include Seroquel 50 mg b.i.d. and 25 mg daily, Depakote 500 mg b.i.d., Namenda 10 mg b.i.d., Zoloft 100 mg daily, BuSpar 15 mg q.i.d. The patient is not having any side effects to the medications. The patient has no other physical complaints. 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 PLAN: The patient continues to exhibiting behavior problems. The patient has difficulty processing information. The patient is also socially isolative and also having issues with impulse control and seems to be intellectual functioning and is not exhibiting any overt psychotic symptoms. LENGTH OF STAY: 5 days. SYLVIA BAIRD MD DR: KERON/vandana JOB#: [id number] / [id number]
[2019-07-11 13:20] VITALS: BP 131/61
[2019-07-11] MEDS: QUEtiapine 25 MG TABLET. PO SCH (13:28)
[2019-07-11 15:31] VITALS: BP 114/58
[2019-07-11] MEDS: POLYVINYL ALCOHOL/POVIDONE/PF OPHTH SOLUTION DROPERETTE. OU SCH (20:07)
[2019-07-11] MEDS: TERAZOSIN 5 MG CAPSULE. PO SCH (20:07)
[2019-07-11] MEDS: LACTOBACILLUS RHAMNOSUS GG 1 CAPSULE. PO SCH (20:08)
[2019-07-11] MEDS: AMOXICILLIN 250 MG CAPSULE PO SCH (20:09)
[2019-07-11] MEDS: SIMVASTATIN 20 MG TABLET PO SCH (20:09)
--- NOTE | 2019-07-11 22:52 | NUR ---
Pt has been yelling intermittently throughout the evening. Pt irritable, demanding and sarcastic. Pt states that he is freezing, however refuses a blanket when offered. Compliant with crushed medications.
[2019-07-12] MEDS: LEVOTHYROXINE 150 MCG TABLET PO SCH (04:56)
[2019-07-12] MEDS: IPRATRPIUM/ALBUTEROL 0.5/2.5MG 3 ML NEBU. NEB SCH ×6 (04:59→20:57)
[2019-07-12 05:35] VITALS: BP 122/68
[2019-07-12] MEDS: BUDESONIDE 0.5 MG/2 ML NEBU NEB SCH ×2 (08:00→20:57)
[2019-07-12] MEDS: NICOTINE 14MG PATCH. TD SCH (08:16)
[2019-07-12] MEDS: ASPIRIN ENTERIC COATED 325 MG TABLET.DR. PO SCH (08:16)
[2019-07-12] MEDS: LACTOBACILLUS RHAMNOSUS GG 1 CAPSULE. PO SCH ×2 (08:16→20:23)
[2019-07-12] MEDS: AMOXICILLIN 250 MG CAPSULE PO SCH ×3 (08:16→20:25)
[2019-07-12] MEDS: busPIRone 15 MG TABLET. PO SCH ×4 (08:16→20:23)
[2019-07-12] MEDS: ASCORBIC ACID 500 MG TABLET PO SCH ×2 (08:16→20:24)
[2019-07-12] MEDS: QUEtiapine 50 MG TABLET. PO SCH ×2 (08:17→20:25)
[2019-07-12] MEDS: DIVALPROEX 125 MG CAP.SPRINK PO SCH ×2 (08:17→20:25)
[2019-07-12] MEDS: FINASTERIDE 5 MG TABLET PO SCH (08:17)
[2019-07-12] MEDS: SERTRALINE 100 MG TABLET. PO SCH (08:17)
[2019-07-12] MEDS: MAGNESIUM OXIDE 400 MG TABLET PO SCH ×3 (08:17→20:24)
[2019-07-12] MEDS: MEMANTINE 10 MG TABLET. PO SCH ×2 (08:17→20:25)
[2019-07-12] MEDS: CHOLECALCIFEROL (VITAMIN D3) 1,000 UNIT TABLET PO SCH (08:17)
[2019-07-12] MEDS: ALLOPURINOL 100 MG TABLET. PO SCH ×3 (08:17→20:24)
[2019-07-12 08:20] VITALS: BP 134/69
[2019-07-12] MEDS: LISINOPRIL 10 MG TABLET PO SCH (08:20)
[2019-07-12] MEDS: POTASSIUM CHLORIDE 20 MEQ TABLET.ER. PO SCH (08:20)
[2019-07-12] MEDS: FUROSEMIDE 40 MG TABLET PO SCH (08:20)
[2019-07-12] MEDS: MULTIVITAMIN with MINERAL TABLET. PO SCH (08:21)
[2019-07-12] MEDS: METOPROLOL TART IMMED RELEASE 25 MG TABLET PO SCH ×2 (08:22→20:24)
[2019-07-12] MEDS: NYSTATIN TOPICAL POWDER 15GM BOTTLE. TP SCH ×2 (08:22→21:00)
[2019-07-12] MEDS: INSULIN GLARGINE SYRINGE. SQ SCH ×2 (08:49→20:27)
[2019-07-12] MEDS: INSULIN LISPRO 300 UNITS/3 ML VIAL. SQ SCH ×3 (08:51→17:23)
--- NOTE | 2019-07-12 11:14 | NUR ---
Nursing Note Patient has been compliant with medications crushed in pudding. Patient has been pleasant today. No fever, denies SOB. Will continue to monitor.
--- NOTE | 2019-07-12 12:42 | RAD ---
CT HEAD INDICATION: Code stroke COMPARISON: None Available. Exposure: One or more of the following individualized dose reduction techniques were utilized for this examination: 1. Automated exposure control 2. Adjustment of the mA and/or kV according to patient size 3. Use of iterative reconstruction technique TECHNIQUE: 5 mm contiguous axial images were obtained from the skull base to the vertex in both bone and soft tissue algorithm. FINDINGS: Mild bilateral periventricular white matter hypodensities likely chronic small vessel ischemic disease. Tiny hypodensity identified in the left cerebral hemisphere likely old infarct. No evidence of acute intracranial hemorrhage. No extra-axial fluid collections. No mass effect or midline shift. Ventricular size is appropriate. Basal cisterns are patent. No fractures identified.Santoro-white differentiation is preserved.Globes and orbits are within normal limits. Paranasal sinuses and mastoid air cells are clear. IMPRESSION: No acute intracranial findings. FOR INTERNAL CODING PURPOSES Critical result: Findings discussed with patient's nurse at 07/12/2019 12:39 PM. RESULT CODE: (C) Electronically signed by: Zoltan Montero MD (07/12/2019 12:39 PM) [facility]
[2019-07-12] MEDS: QUEtiapine 25 MG TABLET. PO SCH (13:21)
[2019-07-12 16:06] VITALS: BP 101/61
[2019-07-12] MEDS ORDERED: IPRATRPIUM/ALBUTEROL 0.5/2.5MG 3 ML NEBU. NEB SCH (17:15)
[2019-07-12 19:47] VITALS: BP 123/56
[2019-07-12] MEDS: POLYVINYL ALCOHOL/POVIDONE/PF OPHTH SOLUTION DROPERETTE. OU SCH (20:23)
[2019-07-12] MEDS: SIMVASTATIN 20 MG TABLET PO SCH (20:24)
[2019-07-12] MEDS: TERAZOSIN 5 MG CAPSULE. PO SCH (20:24)
--- NOTE | 2019-07-12 21:10 | PN ---
DATE: 07/12/2019 SUBJECTIVE: The patient was seen today, met with the staff, chart reviewed. Staff reports increased behavior problems including demanding, sarcastic, yelling and also angry. The patient reacts to situations with extreme behavioral issues including demanding, hyperverbal, verbally abusive and aggressive behaviors. Staff also observed that the patient had left-sided weakness, inability to move his left upper arm and left lower extremity. The patient was able to talk. The patient did not show any other signs or symptoms of stroke. The patient will be seen by Dr. Sorenson and request for CT scan. OBJECTIVE: VITAL SIGNS: Temperature 97.9, blood pressure 122/68, pulse 103, respirations 16, O2 sat 93%. Slept about 7 hours last night. The patient's appetite is good. CURRENT MEDICATIONS: Include Seroquel 50 mg b.i.d. and 25 mg daily p.o., Depakote 500 mg b.i.d. p.o., olanzapine 5 mg q.2 hours p.r.n., Namenda 10 mg b.i.d., sertraline 100 mg daily and buspirone 15 mg q.i.d. The patient's lab reviewed. The patient is not having any side effects. ASSESSMENT: 1. 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 2. Mild cognitive disorder. PLAN: Continue with the treatment. Continue with the current list of medications and the patient will also be seen by Dr. Sorenson for further evaluation to rule out a possible CVA. SYLVIA BAIRD MD DR: KERON/vandana JOB#: [id number] / [id number]
--- NOTE | 2019-07-12 22:49 | NUR ---
Pt has been very argumentative and demanding this evening. Pt attention seeking and yelling at staff in the dayroom. Pt threatening to "blow this place up" and to "lay on the floor" if he's not put to bed right that moment. Pt compliant with crushed medications; however continued to yell at staff until he went to bed.
[2019-07-13] MEDS: IPRATRPIUM/ALBUTEROL 0.5/2.5MG 3 ML NEBU. NEB SCH ×3 (04:20→20:15)
[2019-07-13 05:46] VITALS: BP 110/56
[2019-07-13] MEDS: LEVOTHYROXINE 150 MCG TABLET PO SCH (06:07)
[2019-07-13] MEDS: INSULIN LISPRO 300 UNITS/3 ML VIAL. SQ SCH ×3 (07:30→17:06)
[2019-07-13] MEDS: ALLOPURINOL 100 MG TABLET. PO SCH ×3 (08:53→20:15)
[2019-07-13] MEDS: AMOXICILLIN 250 MG CAPSULE PO SCH ×3 (08:53→20:14)
[2019-07-13] MEDS: DIVALPROEX 125 MG CAP.SPRINK PO SCH ×2 (08:53→20:16)
[2019-07-13] MEDS: MULTIVITAMIN with MINERAL TABLET. PO SCH (08:54)
[2019-07-13] MEDS: QUEtiapine 50 MG TABLET. PO SCH ×2 (08:54→20:15)
[2019-07-13] MEDS: POTASSIUM CHLORIDE 20 MEQ TABLET.ER. PO SCH (08:54)
[2019-07-13] MEDS: SERTRALINE 100 MG TABLET. PO SCH (08:54)
[2019-07-13] MEDS: LISINOPRIL 10 MG TABLET PO SCH (08:55)
[2019-07-13] MEDS: ASPIRIN ENTERIC COATED 325 MG TABLET.DR. PO SCH (08:55)
[2019-07-13] MEDS: MEMANTINE 10 MG TABLET. PO SCH ×2 (08:56→20:14)
[2019-07-13] MEDS: FINASTERIDE 5 MG TABLET PO SCH (08:56)
[2019-07-13] MEDS: LACTOBACILLUS RHAMNOSUS GG 1 CAPSULE. PO SCH ×2 (08:57→20:15)
[2019-07-13] MEDS: CHOLECALCIFEROL (VITAMIN D3) 1,000 UNIT TABLET PO SCH (08:57)
[2019-07-13] MEDS: metOLazone 5 MG TABLET PO SCH (08:57)
[2019-07-13] MEDS: METOPROLOL TART IMMED RELEASE 25 MG TABLET PO SCH ×2 (08:57→20:14)
[2019-07-13] MEDS: MAGNESIUM OXIDE 400 MG TABLET PO SCH ×3 (08:57→20:15)
[2019-07-13] MEDS: NYSTATIN TOPICAL POWDER 15GM BOTTLE. TP SCH ×2 (08:57→20:17)
[2019-07-13] MEDS: NICOTINE 14MG PATCH. TD SCH (08:58)
[2019-07-13] MEDS: ASCORBIC ACID 500 MG TABLET PO SCH ×2 (08:58→20:15)
[2019-07-13] MEDS: busPIRone 15 MG TABLET. PO SCH ×4 (08:58→20:15)
[2019-07-13] MEDS: FUROSEMIDE 40 MG TABLET PO SCH (08:58)
[2019-07-13] MEDS: INSULIN GLARGINE SYRINGE. SQ SCH ×2 (09:07→21:25)
[2019-07-13] MEDS: BUDESONIDE 0.5 MG/2 ML NEBU NEB SCH ×2 (09:50→20:15)
[2019-07-13] MEDS: QUEtiapine 25 MG TABLET. PO SCH (13:42)
--- NOTE | 2019-07-13 14:25 | NUR ---
Patient is in his room for assessment and medications. He returned there as soon as he was done eating breakfast. He was compliant, took his medications crushed and mixed with applesauce. He is demanding, sarcastic, withdrawn to his room. Continuously states "I want to go back to bed, put me to bed. There is no snacks, no food in this place. This place is a dump, I want to go home." He did come out to the day room for a brief time and worked on his word search, but he continued to complain while doing so. No c/o pain or discomfort.
[2019-07-13 15:49] VITALS: BP 111/61
[2019-07-13] MEDS: SIMVASTATIN 20 MG TABLET PO SCH (20:15)
[2019-07-13] MEDS: TERAZOSIN 5 MG CAPSULE. PO SCH (20:15)
[2019-07-13] MEDS: POLYVINYL ALCOHOL/POVIDONE/PF OPHTH SOLUTION DROPERETTE. OU SCH (20:16)
--- NOTE | 2019-07-13 20:56 | PN ---
DATE: 07/10/2019 PSYCHIATRIC PROGRESS NOTE This late entry 07/10/2019 covers elements not covered in my initial note. SUBJECTIVE: I met with the patient evening of 07/10/2019. The patient slept 7-3/4 hours previous night. Appetite 75%. Urine C and S is pending. He has been yelling, agitated, sarcastic, demanding. White cell counts are elevated, defer to Dr. Sorenson. REVIEW OF SYSTEMS: Ambulation impaired, in wheelchair. No CV, , pulmonary, eye, ENT system symptoms on review. Reliability poor. MENTAL STATUS EXAMINATION: Oriented to himself. Insight, judgment, recent and remote memory, attention, concentration, fund of knowledge poor, consistent with his diagnosis mentioned in my initial note. PLAN: No change from initial note, but we will increase the 0900 hours Seroquel from 25 mg to 50 mg. Maintain rest of Seroquel, BuSpar, Namenda, Zoloft, Depakote with repeat labs on 07/10/2019. Adjust further as clinically indicated. MAN Twin JEWELL MD DR: SHERLEY/vandana JOB#: [id number] / [id number]
--- NOTE | 2019-07-13 21:07 | PDOC ---
Exam Note: Devonte Note: Please also refer to the separate dictated note~for this date of service dictated separately.~Patient seen individually. Discussed the patient with Nursing staff reviewed the chart.~Reviewed interim history and current functioning. Reviewed vital signs,~Labs/ Radiology~and current medications noted below. Continue current treatment with the changes noted in the dictated addendum note Assessment: Vital Signs/I&O: Vital Signs Date Time Temp Pulse Resp B/P (MAP) Pulse Ox O2 Delivery O2 Flow Rate FiO2 07/13/19 20:20 93 Room Air 07/13/19 20:15 105 111/61 07/13/19 15:49 97.3 18 07/13/19 04:20 2.0 I & O 07/12/19 07/12/19 07/13/19 15:00 23:00 07:00 Intake Total 940 ml 240 ml 120 ml Balance 940 ml 240 ml 120 ml Labs: Laboratory Tests Test 07/13/19 07:48 07/13/19 11:57 07/13/19 16:50 07/13/19 19:41 Glucose (Fingerstick) 74 mg/dL (70-99) 187 mg/dL (70-99) H 169 mg/dL (70-99) H 173 mg/dL (70-99) H Current Medications: Meds: Current Medications Medications (Trade) Dose Ordered Sig/Zeina Route PRN Reason Start Time Stop Time Status Last Admin Dose Admin Metolazone (Zaroxolyn) 5 mg 3X/WEEK PO 07/13/19 09:00 07/13/19 08:57 Quetiapine Fumarate (SEROquel) 50 mg TID PO 07/13/19 21:00 07/13/19 20:15 I have reviewed the current psychotropics carefully including drug interactions. Risk benefit ratio favors no change other than as noted in my dictated progress note. 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
--- NOTE | 2019-07-13 23:45 | NUR ---
Pt has been irritable, argumentative and demanding. Pt yelling that he wants to lay down in bed, that this place is a dump, and that we're all "good for nothings." Compliant with crushed medications. Once laid down, pt stopped yelling and fell asleep.
[2019-07-14] MEDS: IPRATRPIUM/ALBUTEROL 0.5/2.5MG 3 ML NEBU. NEB SCH ×3 (05:10→21:00)
[2019-07-14 05:12] VITALS: BP 115/57
[2019-07-14] MEDS: LEVOTHYROXINE 150 MCG TABLET PO SCH (05:58)
[2019-07-14] MEDS: NICOTINE 14MG PATCH. TD SCH (08:49)
[2019-07-14] MEDS: DIVALPROEX 125 MG CAP.SPRINK PO SCH ×2 (08:49→20:05)
[2019-07-14] MEDS: ASCORBIC ACID 500 MG TABLET PO SCH ×2 (08:49→20:07)
[2019-07-14] MEDS: ASPIRIN ENTERIC COATED 325 MG TABLET.DR. PO SCH (08:50)
[2019-07-14] MEDS: FINASTERIDE 5 MG TABLET PO SCH (08:50)
[2019-07-14] MEDS: MULTIVITAMIN with MINERAL TABLET. PO SCH (08:50)
[2019-07-14] MEDS: busPIRone 15 MG TABLET. PO SCH ×4 (08:50→20:06)
[2019-07-14] MEDS: AMOXICILLIN 250 MG CAPSULE PO SCH ×3 (08:50→20:05)
[2019-07-14] MEDS: LISINOPRIL 10 MG TABLET PO SCH (08:50)
[2019-07-14] MEDS: QUEtiapine 50 MG TABLET. PO SCH ×3 (08:50→20:07)
[2019-07-14] MEDS: POTASSIUM CHLORIDE 20 MEQ TABLET.ER. PO SCH (08:51)
[2019-07-14] MEDS: METOPROLOL TART IMMED RELEASE 25 MG TABLET PO SCH ×2 (08:51→20:07)
[2019-07-14] MEDS: FUROSEMIDE 40 MG TABLET PO SCH (08:51)
[2019-07-14] MEDS: LACTOBACILLUS RHAMNOSUS GG 1 CAPSULE. PO SCH ×2 (08:51→20:06)
[2019-07-14] MEDS: MEMANTINE 10 MG TABLET. PO SCH ×2 (08:51→20:07)
[2019-07-14] MEDS: CHOLECALCIFEROL (VITAMIN D3) 1,000 UNIT TABLET PO SCH (08:51)
[2019-07-14] MEDS: ALLOPURINOL 100 MG TABLET. PO SCH ×3 (08:51→20:08)
[2019-07-14] MEDS: MAGNESIUM OXIDE 400 MG TABLET PO SCH ×3 (08:52→20:07)
[2019-07-14] MEDS: NYSTATIN TOPICAL POWDER 15GM BOTTLE. TP SCH ×2 (08:54→20:10)
[2019-07-14] MEDS: INSULIN LISPRO 300 UNITS/3 ML VIAL. SQ SCH ×3 (08:56→17:18)
[2019-07-14] MEDS: INSULIN GLARGINE SYRINGE. SQ SCH ×2 (08:57→20:09)
[2019-07-14 09:20] VITALS: BP 166/80
[2019-07-14] MEDS: BUDESONIDE 0.5 MG/2 ML NEBU NEB SCH ×2 (10:33→20:00)
--- NOTE | 2019-07-14 10:53 | NUR ---
Nursing Note Patient has been compliant with medications crushed in pudding. Patient is attention seeking, irritable, sarcastic, demanding to be put to bed, and yells when being approached, states that "nothing to do in this dump place. I want to go home!" Patient offered a blanket, snacks, and a cup of drink but pt refused. No fever, denies SOB. Will continue to monitor.
[2019-07-14 16:10] VITALS: BP 140/50
[2019-07-14] MEDS: TERAZOSIN 5 MG CAPSULE. PO SCH (20:06)
[2019-07-14] MEDS: SIMVASTATIN 20 MG TABLET PO SCH (20:07)
[2019-07-14] MEDS: POLYVINYL ALCOHOL/POVIDONE/PF OPHTH SOLUTION DROPERETTE. OU SCH (20:08)
--- NOTE | 2019-07-14 21:25 | PDOC ---
Exam Note: Devonte Note: Please also refer to the separate dictated note~for this date of service dictated separately.~Patient seen individually. Discussed the patient with Nursing staff reviewed the chart.~Reviewed interim history and current functioning. Reviewed vital signs,~Labs/ Radiology~and current medications noted below. Continue current treatment with the changes noted in the dictated addendum note Assessment: Vital Signs/I&O: Vital Signs Date Time Temp Pulse Resp B/P (MAP) Pulse Ox O2 Delivery O2 Flow Rate FiO2 07/14/19 20:07 100 140/50 07/14/19 16:10 97.5 20 95 07/14/19 10:37 Room Air 07/14/19 05:12 2.0 I & O 07/13/19 07/13/19 07/14/19 15:00 23:00 07:00 Intake Total 960 ml 600 ml Balance 960 ml 600 ml Labs: Laboratory Tests Test 07/14/19 07:18 07/14/19 11:54 07/14/19 16:44 07/14/19 19:33 Glucose (Fingerstick) 146 mg/dL (70-99) H 164 mg/dL (70-99) H 207 mg/dL (70-99) H 216 mg/dL (70-99) H Current Medications: Meds: Current Medications Medications (Trade) Dose Ordered Sig/Zeina Route PRN Reason Start Time Stop Time Status Last Admin Dose Admin Fluvoxamine Maleate (Luvox) 25 mg DAILY PO 07/14/19 09:00 07/16/19 12:00 07/14/19 08:54 I have reviewed the current psychotropics carefully including drug interactions. Risk benefit ratio favors no change other than as noted in my dictated progress note. 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
--- NOTE | 2019-07-15 00:22 | NUR ---
Nursing Note The patient was calm and compliant with his medication and assessment. The patient was briefly agitated about having to wait to go to bed. The patient took his medication crushed in ice cream. The patient is currently sleeping in his room.
[2019-07-15 05:05] VITALS: BP 124/54
[2019-07-15] MEDS: IPRATRPIUM/ALBUTEROL 0.5/2.5MG 3 ML NEBU. NEB SCH ×3 (05:16→21:14)
[2019-07-15] MEDS: LEVOTHYROXINE 150 MCG TABLET PO SCH (06:11)
[2019-07-15] MEDS: NYSTATIN TOPICAL POWDER 15GM BOTTLE. TP SCH ×2 (09:00→20:26)
[2019-07-15] MEDS: NICOTINE 14MG PATCH. TD SCH (09:00)
[2019-07-15] MEDS: FINASTERIDE 5 MG TABLET PO SCH (10:05)
[2019-07-15] MEDS: METOPROLOL TART IMMED RELEASE 25 MG TABLET PO SCH ×2 (10:05→20:26)
[2019-07-15] MEDS: AMOXICILLIN 250 MG CAPSULE PO SCH ×3 (10:05→20:20)
[2019-07-15] MEDS: MAGNESIUM OXIDE 400 MG TABLET PO SCH ×3 (10:06→20:21)
[2019-07-15] MEDS: busPIRone 15 MG TABLET. PO SCH ×4 (10:06→20:21)
[2019-07-15] MEDS: LACTOBACILLUS RHAMNOSUS GG 1 CAPSULE. PO SCH ×2 (10:06→20:21)
[2019-07-15] MEDS: metOLazone 5 MG TABLET PO SCH (10:06)
[2019-07-15] MEDS: QUEtiapine 50 MG TABLET. PO SCH ×3 (10:07→20:20)
[2019-07-15] MEDS: POTASSIUM CHLORIDE 20 MEQ TABLET.ER. PO SCH (10:07)
[2019-07-15] MEDS: LISINOPRIL 10 MG TABLET PO SCH (10:07)
[2019-07-15] MEDS: ASPIRIN ENTERIC COATED 325 MG TABLET.DR. PO SCH (10:08)
[2019-07-15] MEDS: ALLOPURINOL 100 MG TABLET. PO SCH ×3 (10:08→20:21)
[2019-07-15] MEDS: CHOLECALCIFEROL (VITAMIN D3) 1,000 UNIT TABLET PO SCH (10:08)
[2019-07-15] MEDS: MEMANTINE 10 MG TABLET. PO SCH ×2 (10:08→20:22)
[2019-07-15] MEDS: ASCORBIC ACID 500 MG TABLET PO SCH ×3 (10:08→20:21)
[2019-07-15] MEDS: FUROSEMIDE 40 MG TABLET PO SCH (10:09)
[2019-07-15] MEDS: DIVALPROEX 125 MG CAP.SPRINK PO SCH ×2 (10:09→20:20)
[2019-07-15] MEDS: MULTIVITAMIN with MINERAL TABLET. PO SCH (10:09)
[2019-07-15] MEDS: INSULIN LISPRO 300 UNITS/3 ML VIAL. SQ SCH ×3 (10:11→17:17)
[2019-07-15] MEDS: INSULIN GLARGINE SYRINGE. SQ SCH ×2 (10:12→20:24)
[2019-07-15] MEDS: BUDESONIDE 0.5 MG/2 ML NEBU NEB SCH ×2 (11:35→21:14)
--- NOTE | 2019-07-15 12:43 | NUR ---
Patient has generally been calm, compliant, and pleasant this shift. He is labile and has shouted at other patients while sitting in the day room when they either stood too close to him or picked up his word search books. He is easily redirectable once the other patients are moved away from him. Will continue to monitor.
[2019-07-15 15:38] VITALS: BP 130/80
--- NOTE | 2019-07-15 17:30 | NUR ---
while changing patient, CNAs found that patient had excoriation under abdominal fold. Excoriation is not visible while patient is sitting, he has to be either standing or lying down so that his abdominal fold can be lifted sufficiently to view. Powder applied, will continue to monitor.
[2019-07-15] MEDS: SIMVASTATIN 20 MG TABLET PO SCH (20:21)
[2019-07-15] MEDS: POLYVINYL ALCOHOL/POVIDONE/PF OPHTH SOLUTION DROPERETTE. OU SCH (20:22)
[2019-07-15] MEDS: TERAZOSIN 5 MG CAPSULE. PO SCH (20:22)
--- NOTE | 2019-07-15 20:47 | PDOC ---
Exam Note: Devonte Note: Please also refer to the separate dictated note~for this date of service dictated separately.~Patient seen individually. Discussed the patient with Nursing staff reviewed the chart.~Reviewed interim history and current functioning. Reviewed vital signs,~Labs/ Radiology~and current medications noted below. Continue current treatment with the changes noted in the dictated addendum note Assessment: Vital Signs/I&O: Vital Signs Date Time Temp Pulse Resp B/P (MAP) Pulse Ox O2 Delivery O2 Flow Rate FiO2 07/15/19 20:26 90 130/80 07/15/19 15:38 98.2 18 92 07/15/19 11:38 Room Air 07/15/19 05:16 2.0 I & O 07/14/19 07/14/19 07/15/19 15:00 23:00 07:00 Intake Total 960 ml 360 ml Balance 960 ml 360 ml Labs: Laboratory Tests Test 07/15/19 07:23 07/15/19 11:33 07/15/19 16:37 07/15/19 19:01 Glucose (Fingerstick) 91 mg/dL (70-99) 211 mg/dL (70-99) H 131 mg/dL (70-99) H 124 mg/dL (70-99) H Current Medications: I have reviewed the current psychotropics carefully including drug interactions. Risk benefit ratio favors no change other than as noted in my dictated progress note. 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
--- NOTE | 2019-07-16 00:48 | NUR ---
Nursing Note the patient was located in his room for his assessment and medications. The patient took his medication crushed in ice cream. The patient was very irritable during all interactions. The patient is currently sleeping in his room.
[2019-07-16] MEDS: IPRATRPIUM/ALBUTEROL 0.5/2.5MG 3 ML NEBU. NEB SCH ×3 (04:27→22:37)
[2019-07-16] MEDS: LEVOTHYROXINE 150 MCG TABLET PO SCH (05:28)
[2019-07-16 05:33] VITALS: BP 121/70
[2019-07-16] MEDS: POTASSIUM CHLORIDE 20 MEQ TABLET.ER. PO SCH (08:36)
[2019-07-16] MEDS: ASPIRIN ENTERIC COATED 325 MG TABLET.DR. PO SCH (08:36)
[2019-07-16] MEDS: MAGNESIUM OXIDE 400 MG TABLET PO SCH ×3 (08:36→20:11)
[2019-07-16] MEDS: DIVALPROEX 125 MG CAP.SPRINK PO SCH ×2 (08:36→20:11)
[2019-07-16] MEDS: AMOXICILLIN 250 MG CAPSULE PO SCH ×3 (08:36→20:11)
[2019-07-16] MEDS: FINASTERIDE 5 MG TABLET PO SCH (08:36)
[2019-07-16] MEDS: METOPROLOL TART IMMED RELEASE 25 MG TABLET PO SCH ×2 (08:37→20:13)
[2019-07-16] MEDS: busPIRone 15 MG TABLET. PO SCH ×4 (08:37→20:11)
[2019-07-16] MEDS: MULTIVITAMIN with MINERAL TABLET. PO SCH (08:37)
[2019-07-16] MEDS: LISINOPRIL 10 MG TABLET PO SCH (08:37)
[2019-07-16] MEDS: ALLOPURINOL 100 MG TABLET. PO SCH ×3 (08:37→20:11)
[2019-07-16] MEDS: CHOLECALCIFEROL (VITAMIN D3) 1,000 UNIT TABLET PO SCH (08:37)
[2019-07-16] MEDS: LACTOBACILLUS RHAMNOSUS GG 1 CAPSULE. PO SCH ×2 (08:37→20:11)
[2019-07-16] MEDS: QUEtiapine 50 MG TABLET. PO SCH ×3 (08:37→20:12)
[2019-07-16] MEDS: FUROSEMIDE 40 MG TABLET PO SCH (08:38)
[2019-07-16] MEDS: MEMANTINE 10 MG TABLET. PO SCH ×2 (08:38→20:11)
[2019-07-16] MEDS: NICOTINE 14MG PATCH. TD SCH (08:38)
[2019-07-16] MEDS: INSULIN GLARGINE SYRINGE. SQ SCH ×2 (08:41→20:55)
[2019-07-16] MEDS: INSULIN LISPRO 300 UNITS/3 ML VIAL. SQ SCH ×3 (08:41→17:37)
[2019-07-16] MEDS: BUDESONIDE 0.5 MG/2 ML NEBU NEB SCH ×2 (10:28→22:37)
--- NOTE | 2019-07-16 10:44 | NUR ---
Patient was agitated prior to shift change and he was in the isolation hallway at shift change. Patient provided with a snack and allowed to go to his room until breakfast. Patient can be demanding at times and repeatedly complains loudly when he does not get his way immediately. He has been telling multiple staff 'Happy 2020' throughout the morning. He is currently withdrawn to his room. Will continue to monitor.
--- NOTE | 2019-07-16 13:00 | NUR ---
WEEKLY ACTIVITY THERAPY NOTE Date of Admission: 06/29/2019 Date of AT Assessment: 07/02/2019 Goal aimed: to increase engagement Initial Goal: Pt. will participate in three Activity Therapy groups or individual sessions per week. Weekly progress towards goal: did not achieve Group participation level: zero Weekly highlights: around group on Saturday morning but did not participate in group Behaviors observed: yelling out from room occasionally, yelling at peer who was slightly intrusive, wearing hospital gown under shirt Plan: no change to goal, pending discharge 07/17/19 Beneficial adaptations: likes word search/ newspaper
[2019-07-16] MEDS: NYSTATIN TOPICAL POWDER 15GM BOTTLE. TP SCH ×2 (14:30→20:13)
[2019-07-16 16:11] VITALS: BP 114/62
--- NOTE | 2019-07-16 18:21 | TX PLAN ---
Interdisciplinary Tx Plan Admission Information Jun 29, 2019 at 19:54 Legal Status (on Admission): Voluntary DPOA/Guardian Name: Pt is a self-sign Contact Other Contact Name: [facility] Other Contact Verified Code Status: Full Code Allergies: Coded Allergies: No Known Drug Allergies (Unverified , 06/29/19) Diagnoses Reasons for Admission: Agitated, Poor impulse control, Other Problem in Patient's Words: Pt sister is concerned that he is developing Dementia Additional Admission Comments: According to the intake, pt needs his meds adjusted as he is yelling at staff, quick tempered, threatening to blow up building, wants people to give him everything now, threatens to hit staff, verbally aggressive. Problems Active Problems: Labile mood Withdrawn to Room Verbal Aggression Pt Strengths/Limitations Ability for [place]: Poor Cognitive Functioning/Ability: Poor Communication Skills/Ability: Fair Financial Resources: Poor Insight/Judgement: Poor Intellectual Ability: Poor Physical Health: Fair Social Skills: Poor Stability in Family: Poor Stability in School/Work: Poor Verbal Skills: Fair Discharge Criteria Discharge Criteria: Adequate arrangements @DC, Verbal commit med comply, Improved behavior, Improved mood/thought Preliminary Discharge Plan Preliminary DC Plan: Current Living Arrange. Special Precautions Fall Risk: Low Initial D/C Plan Plans to return to [facility] Identified Discharge Needs: None at this time. Identified Problems/Hx/Goals Objectives/Short-Term Goals Short Term Goals: Jun. 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 Education: Pt never went to high school. The 7/8th grade was his highest completed. Treatment Plan Explained Patient/Emergency Medical Tech had this treatment plan explained to him/her as indicated by the signature below and has been given the opportunity to ask questions and make suggestions: Date: Patient/Emergency Medical Tech Signature: LINO MUELLER Jul 16, 2019 18:21
--- NOTE | 2019-07-16 18:46 | TX PLAN ---
Interdisciplinary Tx Plan Admission Information Jun 29, 2019 at 19:54 Legal Status (on Admission): Voluntary DPOA/Guardian Name: Pt is a self-sign Contact Other Contact Name: [facility] Other Contact Verified Code Status: Full Code Allergies: Coded Allergies: No Known Drug Allergies (Unverified , 06/29/19) Diagnoses Reasons for Admission: Agitated, Poor impulse control, Other Problem in Patient's Words: Pt sister is concerned that he is developing Dementia Additional Admission Comments: According to the intake, pt needs his meds adjusted as he is yelling at staff, quick tempered, threatening to blow up building, wants people to give him everything now, threatens to hit staff, verbally aggressive. Problems Active Problems: Labile mood Withdrawn to Room Verbal Aggression Pt Strengths/Limitations Ability for [place]: Poor Cognitive Functioning/Ability: Poor Communication Skills/Ability: Fair Financial Resources: Poor Insight/Judgement: Poor Intellectual Ability: Poor Physical Health: Fair Social Skills: Poor Stability in Family: Poor Stability in School/Work: Poor Verbal Skills: Fair Discharge Criteria Discharge Criteria: Adequate arrangements @DC, Verbal commit med comply, Improved behavior, Improved mood/thought Preliminary Discharge Plan Preliminary DC Plan: Current Living Arrange. Special Precautions Fall Risk: Low Initial D/C Plan Plans to return to [facility] Identified Discharge Needs: None at this time. 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 Education: Pt never went to high school. The 7/8th grade was his highest completed. Treatment Plan Explained Patient/Collator had this treatment plan explained to him/her as indicated by the signature below and has been given the opportunity to ask questions and make suggestions: Date: Patient/Collator Signature: Status Update Update Pt continues to be labile and verbally aggressive to staff. Pt is withdrawn to his room and wants assistance the minute he asks for it. Pt is eating roughly 7-100% of meals and sleeping on average 6 hours a night. LINO MUELLER Jul 16, 2019 18:46
[2019-07-16] MEDS: POLYVINYL ALCOHOL/POVIDONE/PF OPHTH SOLUTION DROPERETTE. OU SCH (20:11)
[2019-07-16] MEDS: SIMVASTATIN 20 MG TABLET PO SCH (20:11)
[2019-07-16] MEDS: TERAZOSIN 5 MG CAPSULE. PO SCH (20:12)
[2019-07-16] MEDS: ASCORBIC ACID 500 MG TABLET PO SCH (20:12)
--- NOTE | 2019-07-16 21:07 | PDOC ---
Exam Note: Devonte Note: Please also refer to the separate dictated note~for this date of service dictated separately.~Patient seen individually. Discussed the patient with Nursing staff reviewed the chart.~Reviewed interim history and current functioning. Reviewed vital signs,~Labs/ Radiology~and current medications noted below. Continue current treatment with the changes noted in the dictated addendum note Assessment: Vital Signs/I&O: Vital Signs Date Time Temp Pulse Resp B/P (MAP) Pulse Ox O2 Delivery O2 Flow Rate FiO2 07/16/19 20:13 94 114/62 07/16/19 16:11 98.6 20 93 Room Air 07/16/19 04:27 2.0 I & O 07/15/19 07/15/19 07/16/19 15:00 23:00 07:00 Intake Total 960 ml 480 ml 120 ml Balance 960 ml 480 ml 120 ml Labs: Laboratory Tests Test 07/16/19 07:33 07/16/19 11:54 07/16/19 17:06 07/16/19 19:17 Glucose (Fingerstick) 120 mg/dL (70-99) H 276 mg/dL (70-99) H 184 mg/dL (70-99) H 220 mg/dL (70-99) H Current Medications: I have reviewed the current psychotropics carefully including drug interactions. Risk benefit ratio favors no change other than as noted in my dictated progress note. 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
--- NOTE | 2019-07-16 22:25 | NUR ---
Pt has been located in his room all evening. Compliant with crushed medications. Pt yelling at staff anytime he is approached. Pt wanting to lay in bed, stating that he is "going to blow up the hospital" and "just lay down on the floor" if not put to bed immediately. Will continue to monitor.
--- NOTE | 2019-07-17 00:50 | PN ---
DATE: 07/13/2019 PSYCHIATRIC PROGRESS NOTE This late entry, 07/13/2019, covers elements not covered in my initial note. SUBJECTIVE: I met with the patient in the evening of 07/13/2019. Reviewed information from Dr. Hernandez, who covered for me over the past 2 days. Per TRACI Cormier, the patient slept 6-1/2 hours. He has some lung congestion. We will defer to Dr. Sorenson. Chest x-ray negative. CT head negative. There is a question of CVA. He has a questionable UTI, again defer to Dr. Sorenson. He remains somewhat loud, yelling at times if he does not get to be put to bed when he wants to be, somewhat obsessive. REVIEW OF SYSTEMS: Ambulation impaired, in wheelchair. No CV, , pulmonary, eye system symptoms on review. Hard of hearing. MENTAL STATUS EXAM: Oriented to himself and situation. Speech coherent, can be rapid at times. Abstraction fair, computation impaired, language function intact, attention span short. Mood and affect remains labile. LABORATORY DATA: Reviewed. IMPRESSION: Bipolar disorder, mixed with psychotic features, mild cognitive impairment. Probable urinary tract infection. Rest unchanged. PLAN: Change the Seroquel from 50 mg b.i.d. and 25 mg daily to 50 mg 3 times a day and change Zoloft to Luvox 25 mg a day for 3 days, then 50 mg a day for his marked OCD symptoms, which worsened his yelling and mood lability. Rest unchanged for now. BIPIN JEWELL MD DR: SHERLEY/vandana JOB#: [id number] / [id number]
--- NOTE | 2019-07-17 01:43 | PN ---
DATE: 07/14/2019 PSYCHIATRIC PROGRESS NOTE This late entry 07/14/2019 covers elements not covered in my initial note. SUBJECTIVE: I met with the patient in the evening. The patient slept 8 hours previous night per TRACI Joiner. He has been grumpy, wanting to go home, had 2 loose stools, somewhat obsessive, anxious. REVIEW OF SYSTEMS: Ambulation impaired, in wheelchair. No CV, , pulmonary, eye system symptoms on review other than some diarrhea and he is on Amoxil for his UTI, which could account for the diarrhea. MENTAL STATUS EXAM: Oriented to himself and situation. Speech is coherent, can be loud, abrasive at times if he wants to be put to bed and nursing staff do not do it immediately. Insight, judgment, recent memory is impaired. Language function intact. Attention span short. Mood and affect remains labile. LABORATORY DATA: Reviewed. IMPRESSION: Unchanged from initial note. PLAN: Change Zoloft to Luvox 25 mg a day for 3 days, then 50 mg a day. Rest unchanged for now. MAN Twin JEWELL MD DR: SHERLEY/vandana JOB#: [id number] / [id number]
[2019-07-17 04:47] VITALS: BP 96/60
[2019-07-17] MEDS: LEVOTHYROXINE 150 MCG TABLET PO SCH (05:07)
[2019-07-17] MEDS: MULTIVITAMIN with MINERAL TABLET. PO SCH (08:10)
[2019-07-17] MEDS: POTASSIUM CHLORIDE 20 MEQ TABLET.ER. PO SCH (08:10)
[2019-07-17] MEDS: FINASTERIDE 5 MG TABLET PO SCH (08:11)
[2019-07-17] MEDS: NYSTATIN TOPICAL POWDER 15GM BOTTLE. TP SCH ×2 (08:11→20:31)
[2019-07-17] MEDS: busPIRone 15 MG TABLET. PO SCH ×4 (08:12→20:28)
[2019-07-17] MEDS: DIVALPROEX 125 MG CAP.SPRINK PO SCH ×2 (08:12→20:29)
[2019-07-17] MEDS: LACTOBACILLUS RHAMNOSUS GG 1 CAPSULE. PO SCH ×2 (08:12→20:29)
[2019-07-17] MEDS: AMOXICILLIN 250 MG CAPSULE PO SCH ×3 (08:12→20:29)
[2019-07-17] MEDS: metOLazone 5 MG TABLET PO SCH (08:12)
[2019-07-17] MEDS: MAGNESIUM OXIDE 400 MG TABLET PO SCH ×3 (08:13→20:29)
[2019-07-17] MEDS: CHOLECALCIFEROL (VITAMIN D3) 1,000 UNIT TABLET PO SCH (08:13)
[2019-07-17] MEDS: QUEtiapine 50 MG TABLET. PO SCH ×3 (08:13→20:29)
[2019-07-17] MEDS: ASCORBIC ACID 500 MG TABLET PO SCH ×2 (08:13→20:29)
[2019-07-17] MEDS: MEMANTINE 10 MG TABLET. PO SCH ×2 (08:14→20:28)
[2019-07-17] MEDS: ALLOPURINOL 100 MG TABLET. PO SCH ×3 (08:14→20:29)
[2019-07-17] MEDS: LISINOPRIL 10 MG TABLET PO SCH (08:14)
[2019-07-17] MEDS: METOPROLOL TART IMMED RELEASE 25 MG TABLET PO SCH ×2 (08:14→20:31)
[2019-07-17] MEDS: ASPIRIN ENTERIC COATED 325 MG TABLET.DR. PO SCH (08:14)
[2019-07-17] MEDS: FUROSEMIDE 40 MG TABLET PO SCH (08:15)
[2019-07-17] MEDS: NICOTINE 14MG PATCH. TD SCH (08:16)
[2019-07-17] MEDS: INSULIN GLARGINE SYRINGE. SQ SCH ×2 (08:17→20:32)
[2019-07-17] MEDS: INSULIN LISPRO 300 UNITS/3 ML VIAL. SQ SCH ×3 (08:18→17:13)
--- NOTE | 2019-07-17 09:11 | PN ---
DATE: 07/15/2019 PSYCHIATRIC PROGRESS NOTE This late entry 07/15/2019 covers elements not covered in my initial note. SUBJECTIVE: I met with the patient evening of 07/15/2019. Per TRACI Segal, the patient slept 7-1/4 hours previous night. He has been isolative, starts yelling at times if he does not get his way to be taken to bed right away when he asks for it. He is compliant with his medications, somewhat isolated. REVIEW OF SYSTEMS: Ambulation impaired, in wheelchair. No CV, , pulmonary, eye, ENT system symptoms on review. Hard of hearing. MENTAL STATUS EXAM: Oriented to himself and situation. Speech has some latency, coherent, can be loud at times. Abstraction fair, computation impaired, language function intact, attention span short. Mood and affect remains intermittently labile. LABORATORY DATA: Reviewed. IMPRESSION: Bipolar disorder, mixed with psychotic features, mild cognitive impairment. Rest unchanged. PLAN: Continue to treat his UTI. Continue his current psychotropics. Valproic acid level is therapeutic at 50. He is somewhat obsessive. Remains on Luvox 25 mg a day to be increased to 50 mg a day on 07/18/2019 and we are postponing the discharge to 07/20/2019 to make sure he tolerates this well and is doing better with this yelling mood lability before he discharges back to the facility. IMPRESSION: Unchanged from initial note. PLAN: As noted above. BIPIN JEWELL MD DR: SHERLEY/vandana JOB#: [id number] / [id number]
--- NOTE | 2019-07-17 09:15 | PN ---
DATE: 07/16/2019 PSYCHIATRIC PROGRESS NOTE This late entry 07/16/2019 covers elements not covered in my initial note. SUBJECTIVE: I met with the patient evening of 07/16/2019. The patient slept 7-3/4 hours previous night. He was somewhat disruptive in the morning, yelling, wanting to be put to bed, then better. REVIEW OF SYSTEMS: Ambulation impaired, in wheelchair. No CV, , pulmonary, eye system symptoms on review, slightly hard of hearing. MENTAL STATUS EXAM: Oriented to himself and situation. Speech can be rapid, loud at times. Abstraction fair, computation impaired, language function intact, attention span short. Mood and affect remains labile. Received communication from [facility] social service staff about discharge plans. We will postpone to 07/20/2019 since we are increasing the Luvox to 50 mg a day on 07/18/2019 to help with his OCD and anxiety symptoms and I would like to make sure he is tolerating this well before discharge. Valproic acid level is therapeutic. IMPRESSION: Unchanged from initial note. PLAN: No change from initial note. Continue BuSrebel, Namemar, Seroquel, Luvox is being increased, Depakote and Zyprexa is p.r.n. BIPIN JEWELL MD DR: SHERLEY/vandana JOB#: [id number] / [id number]
--- NOTE | 2019-07-17 10:50 | NUR ---
Patient was irritable at breakfast, stating that he was not getting service quick enough. He was upset that drivematic machine operator had placed his books and newspapers in his closet overnight. Patient compliant with medications. He was less irritable after taking morning medications and having access to his puzzle books and newspapers. He has been withdrawn to his room since breakfast; will continue to monitor.
[2019-07-17] MEDS: BUDESONIDE 0.5 MG/2 ML NEBU NEB SCH ×2 (13:05→21:00)
[2019-07-17] MEDS: IPRATRPIUM/ALBUTEROL 0.5/2.5MG 3 ML NEBU. NEB SCH ×2 (13:05→21:00)
--- NOTE | 2019-07-17 14:39 | NUR ---
[facility] Social Work Discharge Planning Form Patient Name GILMAR OROZCO Admit Date: 06/29/19 DISCHARGE PLAN Discharge Destination: [facility] Care Assessment: N/A Level II Assessment: N/A Transportation: Facility to pick pt up; Time is unknown at the moment. Special Instructions/Notes: Please fax over the discharge medication list and discharge orders to the fax number listed below. DISCHARGE TO FACILITY Facility: [facility] Address: [address] [place] [address] Contact Name: KALYANI Kirk: Contact Name: JEFF Jenkins: PCP: Dr. Christina Ahmadi
[2019-07-17 15:40] VITALS: BP 95/51
[2019-07-17] MEDS: POLYVINYL ALCOHOL/POVIDONE/PF OPHTH SOLUTION DROPERETTE. OU SCH (20:28)
[2019-07-17] MEDS: SIMVASTATIN 20 MG TABLET PO SCH (20:29)
[2019-07-17] MEDS: TERAZOSIN 5 MG CAPSULE. PO SCH (20:31)
--- NOTE | 2019-07-17 20:55 | PDOC ---
Exam Note: Devonte Note: Please also refer to the separate dictated note~for this date of service dictated separately.~Patient seen individually. Discussed the patient with Nursing staff reviewed the chart.~Reviewed interim history and current functioning. Reviewed vital signs,~Labs/ Radiology~and current medications noted below. Continue current treatment with the changes noted in the dictated addendum note Assessment: Vital Signs/I&O: Vital Signs Date Time Temp Pulse Resp B/P (MAP) Pulse Ox O2 Delivery O2 Flow Rate FiO2 07/17/19 20:31 69 111/71 07/17/19 15:40 97.1 16 93 07/17/19 13:06 Room Air 07/16/19 04:27 2.0 I & O 07/16/19 07/16/19 07/17/19 15:00 23:00 07:00 Intake Total 960 ml 480 ml Balance 960 ml 480 ml Labs: Laboratory Tests Test 07/17/19 07:05 07/17/19 11:47 07/17/19 16:42 07/17/19 19:31 Glucose (Fingerstick) 73 mg/dL (70-99) 93 mg/dL (70-99) 83 mg/dL (70-99) 111 mg/dL (70-99) H Current Medications: Meds: Current Medications Medications (Trade) Dose Ordered Sig/Zeina Route PRN Reason Start Time Stop Time Status Last Admin Dose Admin Fluvoxamine Maleate (Luvox) 50 mg DAILY PO 07/17/19 09:00 07/17/19 08:12 I have reviewed the current psychotropics carefully including drug interactions. Risk benefit ratio favors no change other than as noted in my dictated progress note. 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
--- NOTE | 2019-07-17 23:01 | NUR ---
Pt placed himself on the floor after shift change. Pt yelling that nobody put him to bed so he put himself on the floor. Pt given a pillow and blanket for comfort while he laid on the floor. Pt instructed that he would not be put back into bed until he stopped yelling. Pt lifted back into bed. Once in bed, pt refused to open his mouth for his medications. Pt clamped his mouth shut and refused to open his eyes. Pt instructed that if he did not open his mouth and comply with taking his medications, then staff would get him up out of bed. Pt started yelling, cursing and swatting at staff. Crushed medications administered. Pt then went to sleep.
[2019-07-18 04:51] VITALS: BP 112/67
[2019-07-18] MEDS: IPRATRPIUM/ALBUTEROL 0.5/2.5MG 3 ML NEBU. NEB SCH ×3 (05:01→20:47)
[2019-07-18] MEDS: LEVOTHYROXINE 150 MCG TABLET PO SCH (05:45)
[2019-07-18 08:52] LABS: ALBUMIN 2.8 g/dL (3.4-5.0); ALBUMIN/GLOBULIN RATIO 0.6 (1.0-1.7); CALCIUM 9.2 mg/dL (8.5-10.1); CREATININE 1.4 mg/dL (0.7-1.3); GFR 48.1; POTASSIUM 4.8 mmol/L (3.5-5.1); TOTAL BILIRUBIN 0.2 mg/dL (0.2-1.0); TOTAL PROTEIN 7.5 g/dL (6.4-8.2)
[2019-07-18 09:30] LABS: BASO % 0 % (0-3); EOS # 0.2 x10^3/uL (0.0-0.7); EOS % 2 % (0-3); HEMATOCRIT 36.4 % (39.0-53.0); HEMOGLOBIN 11.6 g/dL (13.0-17.5); LYMPH # 2.4 x10^3/uL (1.0-4.8); LYMPH % 22 % (24-48); MEAN CORPUSCULAR HEMOGLOBIN 31 pg (25-35); MEAN CORPUSCULAR HGB CONC 32 g/dL (31-37); MEAN CORPUSCULAR VOLUME 96 fL (79-100); MONO % 9 % (0-9); NEUT # 7.5 x10^3uL (1.8-7.7); NEUT % 67 % (31-73); PLATELET COUNT 291 x10^3/uL (140-400); RED BLOOD COUNT 3.77 x10^6/uL (4.30-5.70); RED CELL DISTRIBUTION WIDTH 14.7 % (11.5-14.5); WHITE BLOOD COUNT 11.2 x10^3/uL (4.0-11.0)
[2019-07-18] MEDS: POTASSIUM CHLORIDE 20 MEQ TABLET.ER. PO SCH (10:01)
[2019-07-18] MEDS: FUROSEMIDE 40 MG TABLET PO SCH (10:01)
[2019-07-18] MEDS: FINASTERIDE 5 MG TABLET PO SCH (10:01)
[2019-07-18] MEDS: busPIRone 15 MG TABLET. PO SCH ×4 (10:01→21:13)
[2019-07-18] MEDS: ASCORBIC ACID 500 MG TABLET PO SCH ×2 (10:01→21:14)
[2019-07-18] MEDS: MAGNESIUM OXIDE 400 MG TABLET PO SCH ×3 (10:02→21:12)
[2019-07-18] MEDS: MEMANTINE 10 MG TABLET. PO SCH ×2 (10:02→21:13)
[2019-07-18] MEDS: METOPROLOL TART IMMED RELEASE 25 MG TABLET PO SCH ×2 (10:02→21:00)
[2019-07-18] MEDS: QUEtiapine 50 MG TABLET. PO SCH ×3 (10:02→21:13)
[2019-07-18] MEDS: LACTOBACILLUS RHAMNOSUS GG 1 CAPSULE. PO SCH ×2 (10:02→21:13)
[2019-07-18] MEDS: DIVALPROEX 125 MG CAP.SPRINK PO SCH ×2 (10:02→21:13)
[2019-07-18] MEDS: ALLOPURINOL 100 MG TABLET. PO SCH ×3 (10:03→21:13)
[2019-07-18] MEDS: ASPIRIN ENTERIC COATED 325 MG TABLET.DR. PO SCH (10:03)
[2019-07-18] MEDS: MULTIVITAMIN with MINERAL TABLET. PO SCH (10:03)
[2019-07-18] MEDS: CHOLECALCIFEROL (VITAMIN D3) 1,000 UNIT TABLET PO SCH (10:03)
[2019-07-18] MEDS: NICOTINE 14MG PATCH. TD SCH (10:03)
[2019-07-18] MEDS: LISINOPRIL 10 MG TABLET PO SCH (10:04)
[2019-07-18] MEDS: NYSTATIN TOPICAL POWDER 15GM BOTTLE. TP SCH ×2 (10:04→21:16)
[2019-07-18] MEDS: INSULIN LISPRO 300 UNITS/3 ML VIAL. SQ SCH ×3 (10:06→17:20)
[2019-07-18] MEDS: BUDESONIDE 0.5 MG/2 ML NEBU NEB SCH ×2 (10:20→20:47)
[2019-07-18] MEDS: INSULIN GLARGINE SYRINGE. SQ SCH ×2 (10:20→21:16)
[2019-07-18 11:55] LABS: % ATYL 3 % (0-0); % BANDS 3 % (0-9); % BASOS 2 % (0-3); % EOS 2 % (0-5); % LYMPHS 21 % (24-48); % MONOS 6 % (0-10); % MYELOS 2 % (0-0); % SEGS 61 % (35-66)
[2019-07-18 11:58] LABS: PLT ESTIMATE ADEQUATE (ADEQUATE)
[2019-07-18 12:02] LABS: STOMATOCYTES PRESENT
--- NOTE | 2019-07-18 13:17 | NUR ---
Patient has been labile, talkative, and med compliant. He has been less withdrawn to his room, working on wordsearch puzzles in the day room. Patient did become agitated when another patient had wandered into his room, he was redirected and calmed down. Patient withdrawn to his room after lunch, will continue to monitor
[2019-07-18 16:33] VITALS: BP 90/62
[2019-07-18] MEDS: TERAZOSIN 5 MG CAPSULE. PO SCH (21:00)
[2019-07-18] MEDS: SIMVASTATIN 20 MG TABLET PO SCH (21:13)
[2019-07-18] MEDS: POLYVINYL ALCOHOL/POVIDONE/PF OPHTH SOLUTION DROPERETTE. OU SCH (21:14)
--- NOTE | 2019-07-18 21:19 | PDOC ---
Exam Note: Devonte Note: Please also refer to the separate dictated note~for this date of service dictated separately.~Patient seen individually. Discussed the patient with Nursing staff reviewed the chart.~Reviewed interim history and current functioning. Reviewed vital signs,~Labs/ Radiology~and current medications noted below. Continue current treatment with the changes noted in the dictated addendum note Assessment: Vital Signs/I&O: Vital Signs Date Time Temp Pulse Resp B/P (MAP) Pulse Ox O2 Delivery O2 Flow Rate FiO2 07/18/19 20:54 96 Room Air 07/18/19 16:33 97.2 98 20 90/62 (71) 07/18/19 05:01 2.0 I & O 07/17/19 07/17/19 07/18/19 15:00 23:00 07:00 Intake Total 720 ml 480 ml Balance 720 ml 480 ml Labs: Laboratory Tests Test 07/18/19 07:33 07/18/19 07:50 07/18/19 07:53 07/18/19 11:54 Glucose (Fingerstick) 58 mg/dL (70-99) L 72 mg/dL (70-99) 236 mg/dL (70-99) H White Blood Count 11.2 x10^3/uL (4.0-11.0) H Red Blood Count 3.77 x10^6/uL (4.30-5.70) L Hemoglobin 11.6 g/dL (13.0-17.5) L Hematocrit 36.4 % (39.0-53.0) L Mean Corpuscular Volume 96 fL (79-100) Mean Corpuscular Hemoglobin 31 pg (25-35) Mean Corpuscular Hemoglobin Concent 32 g/dL (31-37) Red Cell Distribution Width 14.7 % (11.5-14.5) H Platelet Count 291 x10^3/uL (140-400) Neutrophils (%) (Auto) 67 % (31-73) Lymphocytes (%) (Auto) 22 % (24-48) L Monocytes (%) (Auto) 9 % (0-9) Eosinophils (%) (Auto) 2 % (0-3) Basophils (%) (Auto) 0 % (0-3) Neutrophils # (Auto) 7.5 x10^3uL (1.8-7.7) Lymphocytes # (Auto) 2.4 x10^3/uL (1.0-4.8) Monocytes # (Auto) 1.0 x10^3/uL (0.0-1.1) Eosinophils # (Auto) 0.2 x10^3/uL (0.0-0.7) Basophils # (Auto) 0.0 x10^3/uL (0.0-0.2) Segmented Neutrophils % 61 % (35-66) Band Neutrophils % 3 % (0-9) Lymphocytes % 21 % (24-48) L Atypical Lymphocytes % (Manual) 3 % (0-0) H Monocytes % 6 % (0-10) Eosinophils % 2 % (0-5) Basophils % 2 % (0-3) Myelocytes % 2 % (0-0) H Platelet Estimate Adequate (ADEQUATE) Stomatocytes Present Sodium Level 141 mmol/L (136-145) Potassium Level 4.8 mmol/L (3.5-5.1) Chloride Level 101 mmol/L (98-107) Carbon Dioxide Level 33 mmol/L (21-32) H Anion Gap 7 (6-14) Blood Urea Nitrogen 47 mg/dL (8-26) H Creatinine 1.4 mg/dL (0.7-1.3) H Estimated GFR (Cockcroft-Gault) 48.1 BUN/Creatinine Ratio 34 (6-20) H Glucose Level 66 mg/dL (70-99) L Calcium Level 9.2 mg/dL (8.5-10.1) Total Bilirubin 0.2 mg/dL (0.2-1.0) Aspartate Amino Transferase (AST) 26 U/L (15-37) Alanine Aminotransferase (ALT) 27 U/L (16-63) Alkaline Phosphatase 84 U/L (46-116) Total Protein 7.5 g/dL (6.4-8.2) Albumin 2.8 g/dL (3.4-5.0) L Albumin/Globulin Ratio 0.6 (1.0-1.7) L Test 07/18/19 16:23 07/18/19 19:12 Glucose (Fingerstick) 186 mg/dL (70-99) H 171 mg/dL (70-99) H Current Medications: I have reviewed the current psychotropics carefully including drug interactions. Risk benefit ratio favors no change other than as noted in my dictated progress note. 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
[2019-07-19 04:55] VITALS: BP 122/61
[2019-07-19] MEDS: IPRATRPIUM/ALBUTEROL 0.5/2.5MG 3 ML NEBU. NEB SCH ×3 (05:28→20:54)
[2019-07-19] MEDS: LEVOTHYROXINE 150 MCG TABLET PO SCH (05:53)
--- NOTE | 2019-07-19 06:11 | NUR ---
Nursing Note The patient was calm and compliant with his medication and assessment. the patient took his medication crushed in pudding. The patient was compliant during cares. The patient was pleasant during interactions with this nurse. The patient is currently awake in the day room.
[2019-07-19] MEDS: LACTOBACILLUS RHAMNOSUS GG 1 CAPSULE. PO SCH ×2 (08:43→20:20)
[2019-07-19] MEDS: DIVALPROEX 125 MG CAP.SPRINK PO SCH ×2 (08:43→20:21)
[2019-07-19] MEDS: busPIRone 15 MG TABLET. PO SCH ×4 (08:43→20:20)
[2019-07-19] MEDS: POTASSIUM CHLORIDE 20 MEQ TABLET.ER. PO SCH (08:43)
[2019-07-19] MEDS: ASPIRIN ENTERIC COATED 325 MG TABLET.DR. PO SCH (08:43)
[2019-07-19] MEDS: FUROSEMIDE 40 MG TABLET PO SCH (08:44)
[2019-07-19] MEDS: METOPROLOL TART IMMED RELEASE 25 MG TABLET PO SCH ×2 (08:44→20:21)
[2019-07-19] MEDS: MAGNESIUM OXIDE 400 MG TABLET PO SCH ×3 (08:44→20:21)
[2019-07-19] MEDS: FINASTERIDE 5 MG TABLET PO SCH (08:45)
[2019-07-19] MEDS: LISINOPRIL 10 MG TABLET PO SCH (08:45)
[2019-07-19] MEDS: MULTIVITAMIN with MINERAL TABLET. PO SCH (08:45)
[2019-07-19] MEDS: QUEtiapine 50 MG TABLET. PO SCH ×3 (08:45→20:21)
[2019-07-19] MEDS: CHOLECALCIFEROL (VITAMIN D3) 1,000 UNIT TABLET PO SCH (08:45)
[2019-07-19] MEDS: MEMANTINE 10 MG TABLET. PO SCH ×2 (08:45→20:20)
[2019-07-19] MEDS: ASCORBIC ACID 500 MG TABLET PO SCH ×2 (08:45→20:20)
[2019-07-19] MEDS: NICOTINE 14MG PATCH. TD SCH (08:46)
[2019-07-19] MEDS: ALLOPURINOL 100 MG TABLET. PO SCH ×3 (08:46→20:20)
[2019-07-19] MEDS: NYSTATIN TOPICAL POWDER 15GM BOTTLE. TP SCH ×2 (08:47→20:20)
[2019-07-19] MEDS: INSULIN LISPRO 300 UNITS/3 ML VIAL. SQ SCH ×3 (08:54→17:12)
[2019-07-19] MEDS: INSULIN GLARGINE SYRINGE. SQ SCH ×2 (08:55→20:22)
[2019-07-19] MEDS: BUDESONIDE 0.5 MG/2 ML NEBU NEB SCH ×2 (10:36→20:54)
--- NOTE | 2019-07-19 10:40 | NUR ---
Patient was in the hallway outside his room during morning rounding, took medications crushed in apple sauce, allowed for morning assessment. Patient was visiting and joking with the nurse. Patient did get frustrated and started to yell when another patient wondered into his room. Patient was able to be redirected back into his room. Will continue to monitor.
[2019-07-19 15:46] VITALS: BP 123/59
[2019-07-19] MEDS: POLYVINYL ALCOHOL/POVIDONE/PF OPHTH SOLUTION DROPERETTE. OU SCH (20:19)
[2019-07-19] MEDS: SIMVASTATIN 20 MG TABLET PO SCH (20:21)
[2019-07-19] MEDS: TERAZOSIN 5 MG CAPSULE. PO SCH (20:21)
--- NOTE | 2019-07-19 20:40 | PDOC ---
Exam Note: Devonte Note: Please also refer to the separate dictated note~for this date of service dictated separately.~Patient seen individually. Discussed the patient with Nursing staff reviewed the chart.~Reviewed interim history and current functioning. Reviewed vital signs,~Labs/ Radiology~and current medications noted below. Continue current treatment with the changes noted in the dictated addendum note Assessment: Vital Signs/I&O: Vital Signs Date Time Temp Pulse Resp B/P (MAP) Pulse Ox O2 Delivery O2 Flow Rate FiO2 07/19/19 20:21 96 123/59 07/19/19 15:46 97.2 16 97 07/19/19 10:36 Room Air 07/18/19 05:01 2.0 I & O 07/18/19 07/18/19 07/19/19 15:00 23:00 07:00 Intake Total 1080 ml 360 ml Balance 1080 ml 360 ml Labs: Laboratory Tests Test 07/19/19 07:15 07/19/19 11:44 07/19/19 16:38 07/19/19 19:30 Glucose (Fingerstick) 121 mg/dL (70-99) H 212 mg/dL (70-99) H 129 mg/dL (70-99) H 157 mg/dL (70-99) H Current Medications: I have reviewed the current psychotropics carefully including drug interactions. Risk benefit ratio favors no change other than as noted in my dictated progress note. 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
--- NOTE | 2019-07-19 22:49 | NUR ---
Pt has been labile this evening. Yelling and demanding to be put to bed. Compliant with crushed medications. Once placed in bed, pt was calm. Pt is currently sleeping.
--- NOTE | 2019-07-19 23:46 | PN ---
DATE: 07/18/2019 PSYCHIATRIC PROGRESS NOTE This late entry of 07/18 covers elements not covered in my initial note. SUBJECTIVE: I met with the patient on the evening of 07/18 and staffed at a treatment team meeting with the entire team. Per TRACI Schroeder, the patient's mood remains labile. He gets upset if he feels no one is helping him, even though staff intervenes fairly rapidly. He had a blow up the previous evening; was quite labile, wanting to be put to bed earlier in the day. REVIEW OF SYSTEMS: Ambulation impaired. No CV, , pulmonary, eye, ENT system symptoms on review. MENTAL STATUS EXAMINATION: Oriented to himself and situation. Speech can be coherent, rapid, loud at times. Abstraction fair, computation impaired, language function intact, attention span short. Mood and affect labile, but showing some improvement. LABORATORY DATA: Reviewed. IMPRESSION: Bipolar 1 disorder, mixed with psychotic features; anxiety disorder, unspecified. Rest unchanged. PLAN: No change from initial note. BIPIN JEWELL MD DR: SHERLEY/vandana JOB#: [id number] / [id number]
--- NOTE | 2019-07-19 23:49 | PN ---
DATE: 07/19/2019 PSYCHIATRIC PROGRESS NOTE This late entry 07/19/2019 covers elements not covered in my initial note. SUBJECTIVE: I met with the patient evening of 07/19/2019. The patient slept 5-3/4 hours previous night. He puts himself to the floor at times and I addressed this with him. Takes his medications crushed. REVIEW OF SYSTEMS: Ambulation impaired, in wheelchair. No CV, , pulmonary, eye system symptoms on review. He still labile, can be loud at times, but less so than before. REVIEW OF SYSTEMS: No CV, , pulmonary, eye system symptoms on review. MENTAL STATUS EXAM: Oriented to himself and situation. Speech coherent, abstraction fair, computation impaired, language function intact, attention span short. Mood and affect labile, but improved. LABORATORY DATA: Reviewed. IMPRESSION: Unchanged from initial note. PLAN: No change from initial note. BIPIN JEWELL MD DR: SHERLEY/vandana JOB#: [id number] / [id number]
[2019-07-20] MEDS ORDERED: ASCO500C PO (00:42)
[2019-07-20] MEDS ORDERED: BUDE0.5A3 NEB (00:43)
[2019-07-20] MEDS ORDERED: DIVA125C2 PO (00:44)
[2019-07-20] MEDS ORDERED: LACT1CAP63 PO (00:45)
[2019-07-20] MEDS ORDERED: MAGN2400 PO (00:46)
[2019-07-20] MEDS ORDERED: NICO1PAT25 TD (00:47)
[2019-07-20] MEDS ORDERED: MAGN400T5 PO (00:47)
[2019-07-20] MEDS ORDERED: OLAN5TAB5 PO (00:48)
[2019-07-20] MEDS ORDERED: FLUV50TA2 PO (00:48)
[2019-07-20] MEDS: LEVOTHYROXINE 150 MCG TABLET PO SCH (05:34)
[2019-07-20 05:52] VITALS: BP 124/55
[2019-07-20] MEDS: NICOTINE 14MG PATCH. TD SCH (08:20)
[2019-07-20] MEDS: NYSTATIN TOPICAL POWDER 15GM BOTTLE. TP SCH (08:20)
[2019-07-20] MEDS: LACTOBACILLUS RHAMNOSUS GG 1 CAPSULE. PO SCH (08:22)
[2019-07-20] MEDS: FINASTERIDE 5 MG TABLET PO SCH (08:22)
[2019-07-20] MEDS: DIVALPROEX 125 MG CAP.SPRINK PO SCH (08:22)
[2019-07-20] MEDS: busPIRone 15 MG TABLET. PO SCH ×2 (08:22→13:10)
[2019-07-20] MEDS: ALLOPURINOL 100 MG TABLET. PO SCH ×2 (08:22→13:11)
[2019-07-20] MEDS: METOPROLOL TART IMMED RELEASE 25 MG TABLET PO SCH (08:22)
[2019-07-20] MEDS: ASPIRIN ENTERIC COATED 325 MG TABLET.DR. PO SCH (08:23)
[2019-07-20] MEDS: POTASSIUM CHLORIDE 20 MEQ TABLET.ER. PO SCH (08:23)
[2019-07-20] MEDS: MAGNESIUM OXIDE 400 MG TABLET PO SCH ×2 (08:23→13:10)
[2019-07-20] MEDS: QUEtiapine 50 MG TABLET. PO SCH ×2 (08:23→13:11)
[2019-07-20] MEDS: ASCORBIC ACID 500 MG TABLET PO SCH (08:23)
[2019-07-20] MEDS: FUROSEMIDE 40 MG TABLET PO SCH (08:23)
[2019-07-20] MEDS: MULTIVITAMIN with MINERAL TABLET. PO SCH (08:23)
[2019-07-20 08:24] VITALS: BP 124/55
[2019-07-20] MEDS: LISINOPRIL 10 MG TABLET PO SCH (08:24)
[2019-07-20] MEDS: metOLazone 5 MG TABLET PO SCH (08:24)
[2019-07-20] MEDS: MEMANTINE 10 MG TABLET. PO SCH (08:24)
[2019-07-20] MEDS: CHOLECALCIFEROL (VITAMIN D3) 1,000 UNIT TABLET PO SCH (08:24)
[2019-07-20] MEDS: INSULIN GLARGINE SYRINGE. SQ SCH (08:26)
[2019-07-20] MEDS: INSULIN LISPRO 300 UNITS/3 ML VIAL. SQ SCH ×2 (08:26→12:21)
[2019-07-20] MEDS: IPRATRPIUM/ALBUTEROL 0.5/2.5MG 3 ML NEBU. NEB SCH ×2 (09:00→12:51)
--- NOTE | 2019-07-20 09:07 | DS ---
DATE OF DISCHARGE: 07/20/2019 DISCHARGE SUMMARY/PSYCHIATRIC PROGRESS NOTE REASON FOR ADMISSION: Please refer to the admission history for details. Briefly, the patient is an 88-year-old male referred to us from [facility] by his primary care physician on account of worsening mood swings, frequently calling out, threatening to blow up the facility. This was within the context of his diagnosis of bipolar disorder and failure of outpatient psychiatric interventions with myself at the group home. The patient's behaviors were deemed dangerous, unmanageable resulting in this referral. SIGNIFICANT FINDINGS AND CLINICAL COURSE: Following admission, the patient was seen daily individually by myself from a psychiatric standpoint, medical followup with Dr. Sorenson. The patient was quite anxious, labile, agitated, demanding and threatening, frequently emanating from wanting to be put back to bed or other needs he wanted met immediately. Adjustments were made in his psychotropics. He seemed to respond to a combination of BuSpar 15 mg 4 times a day, Namenda 10 mg b.i.d., Seroquel 50 mg t.i.d. He was extremely obsessive, anxious, repetitive. Luvox initiated and adjusted to 50 mg a day, Depakote Sprinkles 500 mg b.i.d. Valproic acid level therapeutic at 50. Labs were unremarkable and Zyprexa was used p.r.n. 5 mg q. 2 hours, max 15 mg in 24 hours. REVIEW OF SYSTEMS: Prior to discharge on July 20, ambulation impaired, in wheelchair. No CV, , pulmonary, eye, ENT system symptoms on review. Reliability varies. MENTAL STATUS EXAM: Oriented to himself and situation. Speech coherent, can be rapid at times. Abstraction fair. Computation impaired. Language function intact. Attention span short. Mood and affect remain improved, still remains anxious, at times labile, but much better than before. LABORATORY DATA: Reviewed. FINAL DIAGNOSES: Bipolar disorder, mixed with psychotic features, in partial remission; anxiety disorder, unspecified; mild cognitive impairment. Rest unchanged from admission. DISCHARGE MEDICATIONS: Please refer to the MRAD. DISCHARGE INSTRUCTIONS: Outpatient psychiatric and medical followup at the group home. Time for discharge and management greater than 30 minutes. BIPIN JEWELL MD DR: SHERLEY/vandana JOB#: [id number] / [id number]
--- NOTE | 2019-07-20 09:12 | PN ---
DATE: 07/19/2019 PSYCHIATRIC PROGRESS NOTE This late entry 07/19/2019 covers elements not covered in my initial note. SUBJECTIVE: I met with the patient evening of 07/19/2019. The patient slept 7 hours previous night. He continues to have some mood lability, occasionally hollering when he wants to be put back to bed. Nursing staff, feels do not respond quickly enough. I addressed this with him. REVIEW OF SYSTEMS: Ambulation impaired, in wheelchair. No CV, , pulmonary, eye system symptoms on review. MENTAL STATUS EXAM: Oriented to himself and situation. Speech as above. Abstraction fair, computation impaired, language function intact, attention span short. Mood and affect remains labile, but improved. LABORATORY DATA: Reviewed. IMPRESSION: Unchanged from initial note. PLAN: No change from initial note. Transition back to [facility], 07/20/2019. MAN Twin JEWELL MD DR: SHERLEY/vandana JOB#: [id number] / [id number]
--- NOTE | 2019-07-20 10:00 | NUR ---
Patient was in the dining room during morning rounding, took medications crushed in apple sauce, allowed for morning assessment. Patient is ready and excited to discharge today. No agitation noted, pt is resting quietly in his room. Will continue to monitor.
[2019-07-20] MEDS: BUDESONIDE 0.5 MG/2 ML NEBU NEB SCH (12:51)
--- NOTE | 2019-07-20 15:00 | NUR ---
Tobacco Discharge Note [facility] Tobacco Hotline called with patient prior to discharge, YES, pt refused to talk to hotline Tobacco cessation medication listed with current medications for discharge. YES Transition Record was faxed to follow-up provider with the following elements: Reason for admission, procedures, tests, principal diagnosis, pending studies, patient instructions, 04/02 contact information for unit, phone number to obtain pending test results, plan for follow-up care, physician follow-up, advanced directive information, and medication list with dose, duration and instructions. This information was included in the following documents: History and physical, lab results, study results, progress notes, social work planning form, DC instruction form, patient visit summary, and medication reconciliation form. Date & time record faxed:07/20/19 @0057 [facility] [phone] Record discussed with/ report given to: Brandy
--- NOTE | 2019-07-20 20:40 | PDOC ---
Exam Note: Devonte Note: Please also refer to the separate dictated note~for this date of service dictated separately.~Patient seen individually. Discussed the patient with Nursing staff reviewed the chart.~Reviewed interim history and current functioning. Reviewed vital signs,~Labs/ Radiology~and current medications noted below. Continue current treatment with the changes noted in the dictated addendum note Assessment: Vital Signs/I&O: Vital Signs Date Time Temp Pulse Resp B/P (MAP) Pulse Ox O2 Delivery O2 Flow Rate FiO2 07/20/19 12:52 97 Room Air 07/20/19 08:24 80 124/55 07/20/19 05:52 97.0 20 2.0 I & O 07/19/19 07/19/19 07/20/19 15:00 23:00 07:00 Intake Total 840 ml 600 ml Balance 840 ml 600 ml Labs: Laboratory Tests Test 07/20/19 07:22 07/20/19 11:48 Glucose (Fingerstick) 154 mg/dL (70-99) H 193 mg/dL (70-99) H Current Medications: I have reviewed the current psychotropics carefully including drug interactions. Risk benefit ratio favors no change other than as noted in my dictated progress note. 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
== END 2019-07-20 15:00 | DRG 885 ==
LOC: ER 17:44 → GEROPSY 19:54
PROVIDERS: ADMIT Psychiatry & Neurology Psychiatry; ATTEND Psychiatry & Neurology Psychiatry
DX: F31.64 Bipolar disorder, current episode mixed, severe, with psychotic features (principal); E87.1 Hypo-osmolality and hyponatremia; F41.9 Anxiety disorder, unspecified; I25.10 Atherosclerotic heart disease of native coronary artery without angina pectoris; K21.9 Gastro-esophageal reflux disease without esophagitis; E78.00 Pure hypercholesterolemia, unspecified; E03.9 Hypothyroidism, unspecified; M10.9 Gout, unspecified; E11.65 Type 2 diabetes mellitus with hyperglycemia; I48.91 Unspecified atrial fibrillation; I11.0 Hypertensive heart disease with heart failure; I50.9 Heart failure, unspecified; E11.40 Type 2 diabetes mellitus with diabetic neuropathy, unspecified; E66.01 Morbid (severe) obesity due to excess calories; Z68.38 Body mass index [BMI] 38.0-38.9, adult; D64.9 Anemia, unspecified; E78.5 Hyperlipidemia, unspecified; E83.42 Hypomagnesemia; F01.50 Vascular dementia, unspecified severity, without behavioral disturbance, psychotic disturbance, mood disturbance, and anxiety; F02.80 Dementia in other diseases classified elsewhere, unspecified severity, without behavioral disturbance, psychotic disturbance, mood disturbance, and anxiety; F42.9 Obsessive-compulsive disorder, unspecified; F63.9 Impulse disorder, unspecified; G30.9 Alzheimer's disease, unspecified; G89.4 Chronic pain syndrome; K59.09 Other constipation; N40.0 Benign prostatic hyperplasia without lower urinary tract symptoms; Z79.899 Other long term (current) drug therapy; Z86.14 Personal history of Methicillin resistant Staphylococcus aureus infection
CPT/HCPCS: 36415; 70450; 71045; 71260; 74177; 76700; 80053; 80061; 80164; 81001; 82306; 82607; 82947; 83036; 83540; 83550; 83735; 84436; 84443; 84480; 85007; 85025; 85027; 86592; 87086; 94640; 94760; 99406; J1815; J7620; J7626; P9612; Q9967; 97530; 99285-25

== ENCOUNTER 2019-11-13 14:39 | Inpatient (IN) | payer MEDICARE, MEDICAID ==
[~2019-11-13] VITALS: Ht 170.2 cm; Wt 110.9 kg
[~2019-11-13 14:39] MED LIST: ACET500T33 PO; ALLO100T PO; ASCO500C PO; ASPI-252 PO; BUDE0.5A3 NEB; BUSP15TA PO; CHOL200078 PO; DEXT38GE2 PO; DIVA125C2 PO; FINA5TAB4 PO; FLUT1DIS5 IH; FLUV50TA2 PO; FURO-68 PO; GLUC1KIT IM; INSU100I13 SQ; INSU100V SQ; IPRA3AMP29 NEB; LACT1CAP63 PO; LEVO150T PO; LISI10TA2 PO; LOPE-101 PO; MAG-115 PO; MAGN24003 PO; MAGN400T5 PO; MEMA10TA PO; MENT113G6 TP; METO10TA5 PO; METO25TA4 PO; METO5TAB4 PO; MULT-245 PO; NICO1PAT25 TD; NYST15PO9 TP; OLAN5TAB5 PO; POTA20TA4 PO; PROP15DR40 EACHEYE; PROP15DR40 OU; QUET25TA5 PO; QUET50TA5 PO; SERT100T PO; SIMV20TA PO; TERA5CAP3 PO; TRIA15CR50 TP
[2019-11-13] MEDS ORDERED: 0.9 % SODIUM CHLORIDE 10 ML DISP.SYRIN. IV PRN (15:15)
--- NOTE | 2019-11-13 15:28 | RAD ---
EXAM: CHEST ONE VIEW. HISTORY: Shortness of breath. COMPARISON: 07/10/2019. FINDINGS: A frontal view of the chest is obtained. There are small pleural effusions on the left greater than right. Mild interstitial opacities are consistent with atelectasis and mild pulmonary edema. There is no pneumothorax. The heart is moderately enlarged. There are atherosclerotic calcifications of the aorta. There are changes of advanced rotator cuff arthropathy and bilateral glenohumeral osteoarthritis. IMPRESSION: 1. Small pleural effusions on the left greater than right. Mild pulmonary edema. 2. Moderate cardiomegaly. Electronically signed by: Donell Frankel MD (11/13/2019 3:25 PM) [id number]
[2019-11-13 15:31] LABS: BASO % 0 % (0-3); EOS # 0.2 x10^3/uL (0.0-0.7); EOS % 3 % (0-3); HEMATOCRIT 43.8 % (39.0-53.0); LYMPH % 24 % (24-48); MEAN CORPUSCULAR HEMOGLOBIN 31 pg (25-35); MEAN CORPUSCULAR HGB CONC 32 g/dL (31-37); MEAN CORPUSCULAR VOLUME 97 fL (79-100); MONO # 0.8 x10^3/uL (0.0-1.1); MONO % 10 % (0-9); NEUT # 5.3 x10^3uL (1.8-7.7); NEUT % 64 % (31-73); PLATELET COUNT 210 x10^3/uL (140-400); RED BLOOD COUNT 4.51 x10^6/uL (4.30-5.70); RED CELL DISTRIBUTION WIDTH 15.6 % (11.5-14.5); WHITE BLOOD COUNT 8.4 x10^3/uL (4.0-11.0)
[2019-11-13 15:32] LABS: CALCIUM 8.6 mg/dL (8.5-10.1); CREATININE 1.3 mg/dL (0.7-1.3); GFR 52.3; POTASSIUM 4.7 mmol/L (3.5-5.1)
[2019-11-13 15:38] LABS: ALBUMIN/GLOBULIN RATIO 0.7 (1.0-1.7); TOTAL BILIRUBIN 0.3 mg/dL (0.2-1.0); TOTAL PROTEIN 7.1 g/dL (6.4-8.2)
--- NOTE | 2019-11-13 16:42 | EKG ---
[address] [address] Test Date: 2019-11-13 Test Time: 14:49:05 Pat Name: GILMAR OROZCO Department: Room: Gender: M Medical Office Specialist: : 1930 Requested By: DIONTE TANNER Order Number: [id number] Reading MD: London Pickering Measurements Intervals Nichols Rate: 107 P: 146 [place]: 100 QRS: 132 QRSD: 124 T: -30 QT: 374 QTc: 505 Interpretive Statements SINUS TACHYCARDIA ATRIAL PREMATURE COMPLEX(ES) ABNORMAL RIGHT AXIS DEVIATION RIGHT BUNDLE BRANCH BLOCK ABNORMAL ECG Electronically Signed On 11-16-2019 8:43:50 CDT by London Pickering
--- NOTE | 2019-11-13 17:08 | PHYS DOC ---
Past History Past Medical History: Anxiety, Bipolar, CAD, CHF, Constipation, Depression, Diabetes, GERD, High Cholesterol, Hypertension, Hypothyroid, Other Additional Past Medical Histor: MRSA; gout; BPH; Past Surgical History: Other Additional Past Surgical Histo: eye surgery Smoking: Non-smoker Alcohol Use: None Drug Use: None General Adult EDM: Chief Complaint: SHORTNESS OF BREATH HPI: HPI: Patient is a 88-year-old demented male who was brought here by EMS from [facility] due to trouble breathing. It was reported that his oxygen saturation was in the 85%, he was having trouble breathing, EMS were called to take him here for evaluation. Patient was put on a nonrebreather by EMS. Patient was combative upon arrival to ER. Not much information can be obtained from him. It was reported that he has history of CHF, diabetic. Review of Systems: Review of Systems: Constitutional: Denies fever or chills Eyes: Denies change in visual acuity HENT: Denies nasal congestion or sore throat Respiratory: Positive for trouble breathing Cardiovascular: Denies chest pain or edema GI: Denies abdominal pain, nausea, vomiting, bloody stools or diarrhea : Denies dysuria Musculoskeletal: Denies back pain or joint pain Integument: Denies rash Neurologic: Denies headache, focal weakness or sensory changes Endocrine: Denies polyuria or polydipsia Lymphatic: Denies swollen glands Psychiatric: Denies depression or anxiety Heart Score: Risk Factors: Risk Factors: DM, Current or recent (<one month) smoker, HTN, HLP, family history of CAD, obesity. Risk Scores: Score 0 - 3: 2.5% MACE over next 6 weeks - Discharge Home Score 4 - 6: 20.3% MACE over next 6 weeks - Admit for Clinical Observation Score 7 - 10: 72.7% MACE over next 6 weeks - Early Invasive Strategies Current Medications: Current Meds: Current Medications Medications (Trade) Dose Ordered Sig/Zeina Start Time Stop Time Status Last Admin Dose Admin Sodium Chloride (Normal Saline Flush) 10 ml QSHIFT PRN 11/13/19 15:15 Allergies: Allergies: Allergies Coded Allergies Type Severity Reaction Last Updated Verified No Known Drug Allergies 06/29/19 No Physical Exam: PE: Constitutional: Well developed, well nourished, combative, agitated HENT: Normocephalic, atraumatic, bilateral external ears normal, oropharynx moist, no oral exudates, nose normal. [] Eyes: PERRLA, EOMI, conjunctiva normal, no discharge. [] Neck: Normal range of motion, no tenderness, supple, no stridor. [] Cardiovascular:Heart rate regular rhythm, no murmur [] Lungs & Thorax: Crackles in lower 2/3 lungs, decreased air movement. Abdomen: Bowel sounds normal, soft, no tenderness, no masses, no pulsatile masses. [] Skin: Warm, dry, no erythema, no rash. [] Back: No tenderness, no CVA tenderness. [] Extremities: No tenderness, no cyanosis, no clubbing, ROM intact, no edema. [] Neurologic: Patient is awake, alert but agitated and confused, normal motor function, normal sensory function, no focal deficits noted. [] Psychologic: appeared agitated... Current Patient Data: Labs: Laboratory Tests Test 11/13/19 14:50 White Blood Count 8.4 x10^3/uL (4.0-11.0) Red Blood Count 4.51 x10^6/uL (4.30-5.70) Hemoglobin 14.0 g/dL (13.0-17.5) Hematocrit 43.8 % (39.0-53.0) Mean Corpuscular Volume 97 fL (79-100) Mean Corpuscular Hemoglobin 31 pg (25-35) Mean Corpuscular Hemoglobin Concent 32 g/dL (31-37) Red Cell Distribution Width 15.6 % (11.5-14.5) H Platelet Count 210 x10^3/uL (140-400) Neutrophils (%) (Auto) 64 % (31-73) Lymphocytes (%) (Auto) 24 % (24-48) Monocytes (%) (Auto) 10 % (0-9) H Eosinophils (%) (Auto) 3 % (0-3) Basophils (%) (Auto) 0 % (0-3) Neutrophils # (Auto) 5.3 x10^3uL (1.8-7.7) Lymphocytes # (Auto) 2.0 x10^3/uL (1.0-4.8) Monocytes # (Auto) 0.8 x10^3/uL (0.0-1.1) Eosinophils # (Auto) 0.2 x10^3/uL (0.0-0.7) Basophils # (Auto) 0.0 x10^3/uL (0.0-0.2) Prothrombin Time 10.4 SEC (9.4-11.4) Prothrombin Time INR 1.0 (0.9-1.1) Activated Partial Thromboplast Time 24 SEC (23-33) Sodium Level 145 mmol/L (136-145) Potassium Level 4.7 mmol/L (3.5-5.1) Chloride Level 101 mmol/L (98-107) Carbon Dioxide Level 41 mmol/L (21-32) H Anion Gap 3 (6-14) L Blood Urea Nitrogen 25 mg/dL (8-26) Creatinine 1.3 mg/dL (0.7-1.3) Estimated GFR (Cockcroft-Gault) 52.3 BUN/Creatinine Ratio 19 (6-20) Glucose Level 131 mg/dL (70-99) H Lactic Acid Level 1.5 mmol/L (0.4-2.0) Calcium Level 8.6 mg/dL (8.5-10.1) Total Bilirubin 0.3 mg/dL (0.2-1.0) Aspartate Amino Transferase (AST) 14 U/L (15-37) L Alanine Aminotransferase (ALT) 21 U/L (16-63) Alkaline Phosphatase 78 U/L (46-116) Total Protein 7.1 g/dL (6.4-8.2) Albumin 3.0 g/dL (3.4-5.0) L Albumin/Globulin Ratio 0.7 (1.0-1.7) L Vital Signs: Vital Signs Date Time Temp Pulse Resp B/P (MAP) Pulse Ox O2 Delivery O2 Flow Rate FiO2 11/13/19 15:41 94 20 133/94 (107) 98 Room Air 11/13/19 14:39 97.7 EKG: EKG: EKG was done at 1449, heart rate of 107 beats per minutes, sinus tachycardia, no ST segment elevation, right bundle branch block. Radiology/Procedures: Radiology/Procedures: [][address] [address] IMAGING REPORT Signed PATIENT: GILMAR OROZCO ACCOUNT: [id number] : 1930 LOCATION: ER AGE: 88 SEX: M EXAM STATUS: REG ER ORD. PHYSICIAN: DIONTE TANNER DO REASON: shortness of breath PROCEDURE: CHEST AP ONLY EXAM: CHEST ONE VIEW. HISTORY: Shortness of breath. COMPARISON: 07/10/2019. FINDINGS: A frontal view of the chest is obtained. There are small pleural effusions on the left greater than right. Mild interstitial opacities are consistent with atelectasis and mild pulmonary edema. There is no pneumothorax. The heart is moderately enlarged. There are atherosclerotic calcifications of the aorta. There are changes of advanced rotator cuff arthropathy and bilateral glenohumeral osteoarthritis. IMPRESSION: 1. Small pleural effusions on the left greater than right. Mild pulmonary edema. 2. Moderate cardiomegaly. Electronically signed by: Donell Frankel MD (11/13/2019 3:25 PM) [id number] DICTATED AND SIGNED BY: PROSPER FRANKEL MD DATE: 11/13/19 1525 CC: ARLETH CAMACHO MD; DIONTE TANNER DO ~ Course & Med Decision Making: Course & Med Decision Making Pertinent Labs and Imaging studies reviewed. (See chart for details) Patient is an 88-year-old male who was found to have CHF exacerbation. Patient has dementia, he is agitated , yelling for food, asking to be released home. His oxygen saturation improved. Patient will be admitted to hospital for further evaluation and treatment. Discussed with Dr. Aldrich who agreed to admit the patient. Karl Disclaimer: Karl Disclaimer: This electronic medical record was generated, in whole or in part, using a voice recognition dictation system. Departure Departure: Impression: Primary Impression: Acute exacerbation of CHF (congestive heart failure) Additional Impression: Pleural effusion Disposition: ADMITTED INPATIENT Admitting Physician: Constantin Aldrich Condition: STABLE Referrals: ARLETH CAMACHO MD (PCP) DIONTE TANNER DO November 13, 2019 17:08
[2019-11-13] MEDS ORDERED: FUROSEMIDE 40 MG/4 ML VIAL IVP ONE (18:00)
[2019-11-13] MEDS ORDERED: ONDANSETRON PF 4 MG/2 ML VIAL. IVP PRN (18:15)
--- NOTE | 2019-11-13 19:24 | NUR ---
The patient, GILMAR OROZCO, 88 y/o, M admitted by SELVIN STROUD MD, was given written information regarding hospital policies, unit procedures and contact persons. Valuables were checked and LOGGED Patient is alert and oriented x1. Will not talk to staff, does not appear to be in pain. Pt is upset that he is here, wanted to go back home. Patient has yeast in left groin, photo taken per protocol. Generalized swelling and large abdomen. WCTM.
[2019-11-13 19:52] VITALS: BP 158/82
--- NOTE | 2019-11-13 20:00 | HP ---
ADMIT DATE: 11/13/2019 ATTENDING PHYSICIAN: Dr. Stroud. CHIEF COMPLAINT: Shortness of breath. HISTORY OF PRESENT ILLNESS: The patient is an 88-year-old gentleman from [facility]. He has been here before on the [facility]. He has profound dementia with agitation. alf personnel found him to be short of breath symptomatically with decreased saturation of 85%. In the ED, chest x-ray demonstrated cardiomegaly with bilateral pleural effusions extending one-third the way up to his lung lozada. He was given a dose of 60 mg of Lasix. He had some diuresis, feeling better. By the time I saw him, he was saying that he was hungry. He would not keep his oxygen on. He was thrashing about and he has significant bipolar disorder with behavior issues. PAST MEDICAL HISTORY: Significant for bipolar, depression with behavior issues, generalized anxiety, known congestive heart failure, chronic constipation, major depression, type 2 diabetes, gastroesophageal reflux disease, hyperlipidemia, hypertension, hypothyroidism, on replacement and generalized debilitation. He also has had gout and BPH. ALLERGIES: He has no recorded drug allergies. SOCIAL HISTORY: He is a nonsmoker, nondrinker. FAMILY HISTORY: Unobtainable. REVIEW OF SYSTEMS: Unobtainable except the records from the [facility]. CURRENT MEDICATIONS: I did review his medications. He is taking ipratropium, nicotine, Zocor, Flomax, metoprolol, lisinopril, aspirin, acetaminophen, Depakote, ___ , Zyprexa, Seroquel, BuSpar, Namenda, potassium, Lasix only 40 mg daily, metolazone, budesonide, MiraLax, loperamide and various p.r.n. meds. He is also on insulin 60 units of Lantus and 18 units before each meal, Synthroid, triamcinolone, nystatin, multivitamin, and allopurinol. PHYSICAL EXAMINATION: GENERAL: When I saw him, this is very agitated gentleman. INITIAL VITAL SIGNS: In the ED showed a blood pressure 130/74, pulse is 100 and regular. He was afebrile, temperature 97.7, pulse oximetry 98% on supplemental oxygen. HEENT: Head is without trauma. Pupils are reactive. Sclerae nonicteric. Oropharynx clear. NECK: Supple, no bruits. LUNGS: Bibasilar rales. CARDIOVASCULAR: Showed distant heart tones. No obvious gallop. Peripheral pulses are palpable and full. ABDOMEN: Markedly obese, protuberant. No organomegaly. Bowel sounds were hypoactive. EXTREMITIES: Showed trace edema. NEUROLOGIC: Focally intact. Speech is fluent. No focal deficit. He is agitated and has been yelling out inappropriately. PERTINENT LABORATORY STUDIES AND X-RAY STUDIES: Chest x-ray as noted cardiomegaly with bilateral pleural effusions. The sodium was 145 mEq, potassium 4.7, CO2 of 41, BUN 25, creatinine 1.3 mg percent, nonfasting blood sugar was 131. Troponin was at 0.03 and a BNP was 3628. Hemoglobin maintained at 14.0 g/dL with white count of 8400. ASSESSMENT: 1. An 88-year-old gentleman who has an exacerbation of congestive heart failure. 2. Bilateral pleural effusions. 3. Probable noncompliance of dietary intake. 4. Profound dementia. 5. Bipolar disorder. 6. Polypharmacy. 7. Hypertension. 8. Chronic obstructive pulmonary disease. PLAN: 1. Admit to the inpatient unit. 2. I shall simplify his meds. 3. Lasix 80 mg IV b.i.d. 4. Fluid restriction. 5. Daily weights. 6. We will get followup x-rays in a few days. 7. He remains a full code. I will try to ascertain the validity and whether or not he has a durable power of tax attorney. His prognosis is guarded. In the meantime, he will follow a diabetic diet. SELVIN STROUD MD DR: SABI/vandana JOB#: [id number] / [id number]
[2019-11-13] MEDS ORDERED: NYSTATIN TOPICAL POWDER 15GM BOTTLE. TP PRN (20:30)
[2019-11-13] MEDS ORDERED: SIMVASTATIN 20 MG TABLET PO SCH (21:00)
[2019-11-13] MEDS ORDERED: INSULIN GLARGINE SYRINGE. SQ SCH ×3 (21:00)
[2019-11-13] MEDS: DIVALPROEX 125 MG CAP.SPRINK PO SCH (21:29)
[2019-11-13] MEDS: METOPROLOL TART IMMED RELEASE 25 MG TABLET PO SCH (21:30)
[2019-11-13] MEDS: QUEtiapine 50 MG TABLET. PO SCH (21:30)
[2019-11-13] MEDS ORDERED: GLUCAGON,HUMAN RECOMBINANT 1 MG KIT. ONE (21:37)
[2019-11-13] MEDS ORDERED: GLUCAGON,HUMAN RECOMBINANT 1 MG KIT. IM ONE (21:45)
--- NOTE | 2019-11-13 22:00 | NUR ---
This nurse went in pt room to draw blood and administer HS medications. Pt nonresponsive to name and shaking. Withdrew from pinching arm but did not verbally respond to questions or open eyes. Blood glucose tested via finger stick, 59 mg/dL. Glucagon administered IM in right deltoid. Pt opened eyes minimally; responsive to questions and able to follow directions after 5 minutes. Pt ate a cup of yogurt and took HS medications, except insulin after 10 minutes. BG remeasured at 159 mg/dL after 15 minutes post-glucagon. Will continue to monitor.
[2019-11-13 22:45] VITALS: BP 132/69
--- NOTE | 2019-11-14 | NUR ---
Blood glucose measured finger stick at 173 mg/dL. Pt resting and intermittently sipping ice water. Will continue to monitor.
[2019-11-14 05:25] VITALS: BP 125/64
[2019-11-14] MEDS ORDERED: LEVOTHYROXINE 150 MCG TABLET PO SCH (07:30)
[2019-11-14] MEDS: INSULIN LISPRO 300 UNITS/3 ML VIAL. SQ SCH ×2 (07:30→12:12)
[2019-11-14] MEDS: DIVALPROEX 125 MG CAP.SPRINK PO SCH (08:22)
[2019-11-14] MEDS: METOPROLOL TART IMMED RELEASE 25 MG TABLET PO SCH (08:28)
[2019-11-14] MEDS: QUEtiapine 50 MG TABLET. PO SCH (08:29)
[2019-11-14] MEDS ORDERED: FUROSEMIDE 100 MG/10 ML VIAL IVP SCH (09:00)
[2019-11-14] MEDS ORDERED: LISINOPRIL 10 MG TABLET PO SCH (09:00)
[2019-11-14] MEDS ORDERED: INSULIN GLARGINE SYRINGE. SQ SCH (09:00)
[2019-11-14] MEDS ORDERED: ASPIRIN ENTERIC COATED 81 MG TABLET.DR. PO SCH (09:00)
[2019-11-14] MEDS ORDERED: FINASTERIDE 5 MG TABLET PO SCH (09:00)
[2019-11-14] MEDS ORDERED: POTASSIUM CHLORIDE 20 MEQ TABLET.ER. PO SCH (09:00)
--- NOTE | 2019-11-14 11:11 | PN ---
DATE: 11/14/2019 ATTENDING PHYSICIAN: Dr. Stroud. SUBJECTIVE: Comfortable. He is a bit sleepy, but arousable. OBJECTIVE FINDINGS: VITAL SIGNS: We do not have a weight yet today. His blood pressure is 125/64, pulse is 70 and regular, temperature 98.6 Fahrenheit, and oxygen saturation 96% on 4 liters of supplemental oxygen. HEENT: Head is without trauma. Pupils are reactive. Sclerae nonicteric. Oropharynx clear. NECK: Veins were distended. LUNGS: Bibasilar crackles and diminished breath sounds at bases. CARDIOVASCULAR: Showed distant heart tones. No gallops. Peripheral pulses are palpable and full. ABDOMEN: Markedly obese, protuberant. No organomegaly. EXTREMITIES: Show 3+ pitting edema. NEUROLOGIC: Less agitated, but quite confused. Chem-B is pending at this time. ASSESSMENT: 1. An 88-year-old gentleman, detention resident, with an exacerbation of acute on chronic congestive heart failure, systolic. 2. Bilateral pleural effusions on chest x-ray. 3. Noncompliance of dietary intake. 4. Profound dementia with agitation. 5. Bipolar disorder. 6. Polypharmacy. 7. Essential hypertension. 8. Chronic obstructive pulmonary disease. PLAN: 1. Continue diuresis. 2. Serial chemistry with potassium supplementation. 3. Daily weights. 4. Fluid restriction. 5. Follow up chest x-ray early next week. 6. I shall call the detention to ascertain his code status and determine who his power of civil rights attorney is. SELVIN STROUD MD DR: SABI/vandana JOB#: [id number] / [id number]
[2019-11-14 11:33] VITALS: BP 128/71
--- NOTE | 2019-11-14 11:33 | DS ---
DATE OF DISCHARGE: 11/14/2019 ATTENDING PHYSICIAN: Dr. Stroud. FINAL DISCHARGE DIAGNOSES: 1. Exacerbation of congestive heart failure, improved. 2. Vascular dementia with delusions. 3. Major neurocognitive disorder. 4. Morbid obesity. 5. Pleural effusion secondary to congestive heart failure. 6. Acute on chronic congestive heart failure, systolic. 7. Bipolar affective disorder. 8. Mixed impulse control disorder. 9. Essential hypertension. 10. Type 2 diabetes mellitus. HISTORY AND PHYSICAL: The patient is an 88-year-old gentleman from [facility], admitted with increased shortness of breath and congestion. His oxygen saturations were 85% on room air. PHYSICAL EXAMINATION: Please see the dictated note. PERTINENT LABORATORY AND X-RAY STUDIES: Hemoglobin is maintained at 14.0 g/dL with a white count of 8400. Electrolytes are within normal range. Nonfasting blood sugar 89. Troponin was 0.42. Chest x-ray demonstrated small bilateral pleural effusions, cardiomegaly and pulmonary edema. COURSE IN THE HOSPITAL: The patient was admitted. He was given several doses of Lasix with marked improvement. We did fluid restriction. Continue home meds. Accu-Cheks were adequate and some home meds were continued. He did well. By the second hospital day, his lungs were much clearer. He diuresed well and he wanted to go home. I felt this is reasonable under the circumstances. Therefore, he is discharged home with the following meds. He will continue his Lasix, but increase to 80 mg p.o. daily; ipratropium; Zocor; terazosin; Toprol 12.5 mg b.i.d.; lisinopril 10 mg daily; aspirin 325 daily; Depakote 500 mg b.i.d. for mood stabilizer; fluvoxamine 50 mg daily for OCD; Zyprexa Zydis 5 mg p.r.n.; Seroquel 50 mg t.i.d.; BuSpar; Namenda; potassium 20 mEq daily. In addition, Lasix dose increased to 80 mg daily, MiraLax and magnesium hydroxide. His prognosis is guarded. He was discharged there from our hospital in stable condition with explicit instructions and followup care. Insulin 18 units before meals and 60 units of Lantus at bedtime. SELVIN STROUD MD DR: SABI/vandana JOB#: [id number] / [id number] ARYAN Harmon MD
--- NOTE | 2019-11-14 12:41 | NUR ---
Patient is discharged back to [facility] and rehab. Patient is stable at time of discharge. Report called to [facility]. Patient is W/C by staff off of unit.
== END 2019-11-14 12:37 | DRG 292 ==
LOC: ER 14:39 → 1 SOUTH 18:00
PROVIDERS: ADMIT Hospitalist; ATTEND Hospitalist
DX: I11.0 Hypertensive heart disease with heart failure (principal); F01.51 Vascular dementia, unspecified severity, with behavioral disturbance; E03.9 Hypothyroidism, unspecified; I50.23 Acute on chronic systolic (congestive) heart failure; E11.9 Type 2 diabetes mellitus without complications; E66.01 Morbid (severe) obesity due to excess calories; E78.00 Pure hypercholesterolemia, unspecified; F31.9 Bipolar disorder, unspecified; E78.5 Hyperlipidemia, unspecified; F41.1 Generalized anxiety disorder; J44.9 Chronic obstructive pulmonary disease, unspecified; I25.10 Atherosclerotic heart disease of native coronary artery without angina pectoris; F63.9 Impulse disorder, unspecified; K21.9 Gastro-esophageal reflux disease without esophagitis; K59.09 Other constipation; N40.0 Benign prostatic hyperplasia without lower urinary tract symptoms; M10.9 Gout, unspecified; F42.9 Obsessive-compulsive disorder, unspecified; Z91.11 Patient's noncompliance with dietary regimen; Z68.38 Body mass index [BMI] 38.0-38.9, adult; Z79.899 Other long term (current) drug therapy; Z79.4 Long term (current) use of insulin; Z79.82 Long term (current) use of aspirin; Z86.14 Personal history of Methicillin resistant Staphylococcus aureus infection; Z82.49 Family history of ischemic heart disease and other diseases of the circulatory system; Z83.49 Family history of other endocrine, nutritional and metabolic diseases
CPT/HCPCS: 36415; 71045; 80053; 82947; 83605; 83880; 84484; 85025; 85610; 85730; 87040; 93005; 96374; J1610; J1815; J1940; 99285-25